=== PATIENT | male | born 1945 | race Caucasian/White ===

== ENCOUNTER 2017-08-14 19:17 | Inpatient (IN) | payer OTHER ==
[~2017-08-14] VITALS: Ht 177.8 cm; Wt 67.6 kg
[~2017-08-14 19:17] MED LIST: IRON PO; METOPROLOL PO; TAMS0.4C59 PO; VITAMIN C PO; WARFARIN PO
[2017-08-14] MEDS ORDERED: CMD/25 PO (19:59)
[2017-08-14] MEDS ORDERED: PANT40TA PO (19:59)
[2017-08-14] MEDS ORDERED: SODI650T8 PO (19:59)
[2017-08-14] MEDS ORDERED: WARF-246 PO (19:59)
[2017-08-14 20:00] VITALS: BP 110/63; PULSE 101; TEMP 36.9; O2SAT 95; Ht 177.8 cm; Wt 67.6 kg
[2017-08-14] MEDS ORDERED: VANCOMYCIN INJ 1,000 MG in SODIUM CHLORIDE 0.9% 250ML 250 ML IV STA (21:36)
[2017-08-14] MEDS ORDERED: VANCOMYCIN CONSULT ACTIVE PRN (21:45)
[2017-08-14] MEDS ORDERED: PIPERACILL/TAZOBAC CONSULT ACTIVE PRN (21:45)
[2017-08-14] MEDS ORDERED: LEVOFLOXACIN / D5W 750 MG in PREMIXED IN D5W 150 ML IV SCH (22:00)
--- NOTE | 2017-08-14 22:05 | DIAGNOSTIC IMAGING REPORT ---
CHEST ONE VIEW PORTABLE CLINICAL HISTORY: For Line Placement/Intubation tube position COMPARISON STUDY: No previous studies for comparison. FINDINGS: No tubes are identified. Infiltrate right base. Trace amount pleural fluid both lung bases. Upper lungs are clear. IMPRESSION: No tubes are identified. 2. Infiltrate right base.. 3. Small bilateral pleural effusions. The above report was generated using voice recognition software. It may contain grammatical, syntax or spelling errors. Electronically signed by: José Luis Chacon M.D. 08/14/2017 10:03 PM Dictated Date/Time: 08/14/2017 10:01 PM
[2017-08-14 22:30] LABS: HEMATOCRIT 30.8 % (42-52); HEMOGLOBIN 10.5 g/dL (14.0-18.0); MEAN CELL VOLUME 85.3 fL (80-100); MEAN CORPUSCULAR HEMOGLOBIN 29.1 pg (25-34); MEAN CORPUSCULAR HGB CONC 34.1 g/dl (32-36); MEAN PLATELET VOLUME 9.3 fL (7.4-10.4); PLATELET COUNT 200 K/uL (130-400); RED CELL DISTRIBUTION WIDTH CV 14.4 % (11.5-14.5); RED CELL DISTRIBUTION WIDTH SD 45.1 fL (36.4-46.3); WHITE BLOOD COUNT 12.26 K/uL (4.8-10.8)
--- NOTE | 2017-08-14 22:41 | DIAGNOSTIC IMAGING REPORT ---
(CHEST) THORAX WITHOUT CT DOSE: HISTORY: Pneumonia RLL pna eval TECHNIQUE: Multiaxial CT images of the chest were performed without contrast. A dose lowering technique was utilized adhering to the principles of ALARA. COMPARISON: None. FINDINGS: Consolidative right lower lobe infiltrate. Bilateral pleural effusions. Minimal fibrotic change pulmonary apices. No significant parenchymal nodularity. IMPRESSION: 1. Consolidated right lower lobe infiltrate. 2. Bilateral pleural effusions. The above report was generated using voice recognition software. It may contain grammatical, syntax or spelling errors. Electronically signed by: José Luis Chacon M.D. 08/14/2017 10:39 PM Dictated Date/Time: 08/14/2017 10:38 PM
[2017-08-14 22:46] LABS: ALBUMIN 2.2 gm/dl (3.4-5.0); CALCIUM 8.1 mg/dl (8.5-10.1); CREATININE 3.27 mg/dl (0.60-1.40); POTASSIUM 4.3 mmol/L (3.5-5.1)
[2017-08-14 22:48] LABS: INR 2.5 (0.9-1.1)
--- NOTE | 2017-08-14 22:48 | DIAGNOSTIC IMAGING REPORT ---
ABD/PELVIS WITHOUT FOR STONE CT DOSE: 1194.84 mGy.cm HISTORY: Flank pain. Sepsis. RIGHT flank/low back pain w/ h/o stones. current sepsis TECHNIQUE: Multiaxial CT images of the abdomen and pelvis were performed without the use of intravenous and oral contrast according to the standard department stone protocol. A dose lowering technique was utilized adhering to the principles of ALARA. COMPARISON STUDY: None. FINDINGS: Bibasilar pleural effusions. Consolidative infiltrate right base. Study is limited due to the absence of contrast enhancement. Configuration of the liver is unremarkable. Spleen is unremarkable. Moderate pancreatic atrophy. Right kidney is negative for hydronephrosis. There is a 5 mm calcification within the central left renal collecting system. This appears to be nonobstructing but is within the lateral aspects of the renal pelvis. Mild periureteral fat stranding considered nonspecific. 4 mm calcification distal left ureter 2 cm proximal to the left ureteral vesicle junction. Mild fullness left ureter as compared to the right. Several left surgical clips anterior to the left iliopsoas transaxial image 89 within the soft tissue pelvis. Bladder is distended. No free fluid within the pelvic cul-de-sac. Prior TUR defect of the prostate. The bowel pattern overall is nonobstructive. There is a right-sided ostomy. There is a trace amount of infiltrative change of the mesentery which is nonspecific. IMPRESSION: 1. Difficult scan to interpret due to the complete absence of contrast. 2. Infiltrate right lung base. 3. Bilateral pleural effusions. 4. Mild fullness left ureter and left renal pelvis apparently secondary to a partially obstructing calculus distal left ureter measuring 4 mm. 5. Additional nonobstructing 5 mm calcification within the peripheral left renal pelvis. 6. Distention of the bladder. 7. Right-sided ostomy. 8. To the absence of contrast enhancement, potential adenopathy within the retroperitoneal/mesenteric Region is difficult to define, if present. The above report was generated using voice recognition software. It may contain grammatical, syntax or spelling errors. Electronically signed by: José Luis Chacon M.D. 08/14/2017 10:46 PM Dictated Date/Time: 08/14/2017 10:41 PM
[2017-08-14 22:50] LABS: PHOSPHORUS 3.2 mg/dl (2.5-4.9); TOTAL PROTEIN 5.7 gm/dl (6.4-8.2)
[2017-08-14 22:53] LABS: CKMB 5.7 ng/ml (0.5-3.6)
[2017-08-14 22:56] LABS: BASO % 0.2 %; BASO ABS # 0.02 K/uL (0-0.2); IG# 0.28 K/uL (0.00-0.02); LYMPH % 3.5 %; LYMPH ABS # 0.43 K/uL (1.2-3.4); MONO % 3.2 %; MONO ABS # 0.39 K/uL (0.11-0.59); NEUT % 90.8 %; NEUT ABS # 11.14 K/uL (1.4-6.5)
[2017-08-14] MEDS ORDERED: PIPERACILL/TAZOBAC IV 3.375 GM in DEXTROSE 5% 100ML 100 ML IV SCH (23:00)
[2017-08-14] MEDS ORDERED: VANCOMYCIN INJ 1,500 MG in SODIUM CHLORIDE 0.9% 500ML 500 ML IV SCH (23:00)
[2017-08-14 23:13] VITALS: BP 97/59; PULSE 98; TEMP 36.7; O2SAT 94
[2017-08-14] MEDS ORDERED: NURSING VERBAL MED ORDER ONE ×2 (23:15→23:30)
[2017-08-14] MEDS ORDERED: LEVOFLOXACIN CONSULT ACTIVE PRN (23:15)
[2017-08-14 23:18] LABS: PTT PATIENT 54.6 SECONDS (21.0-31.0)
--- NOTE | 2017-08-14 23:26 | History and Physical ---
History & Physical Date & Time of Service: Aug 14, 2017 at 23:26 Chief Complaint: Sepsis, Right Lower Lobe Pheumonia, Kidney Stone Primary Care Physician: No Doctor, Assigned History of Present Illness Source: patient, hospital records Patient is a pleasant 72-year-old male with significant past medical history of hypertension, factor V Leiden, LEFT lower 70 DVT anticoagulated on Coumadin, gout, urinary retention, kidney stones, urinary tract infections, pneumonia, C. difficile with complication requiring partial colectomy, and remote history of lymphoma who presents to our facility in transfer from [facility] for concerns for pneumonia and sepsis. Patient reports that he had been feeling well this week, but reports that he developed "flulike symptoms" over the last 3-4 days. He describes symptoms as weakness and generalized malaise. He denies any upper respiration symptoms. He reports feeling feverish , but has no recorded fevers. He reports that he has also had low back pain for the past 48 hours which was concerning to him as well. He was initially admitted to [facility] where he was found to have a RIGHT lower lobe pneumonia as well as concerns for UTI. The patient does have significant past medical history for urinary calculi recently. He had a stent removed a few weeks ago. In addition, he has been treated for UTI over the past 3-4 months. While at [facility], the patient did have a decline in his blood pressure requiring vasopressors, specifically Levophed. Initially, the patient was accepted in transfer to [facility]'s ICU, however they did not have a bed. It was suggested that if the patient was off of vasopressors for 6 hours, he could be transferred to their facility. At that point, the provider was not comfortable managing the patient with his multitude of symptoms and complexity of care. He did, however, come off of Levophed prior to transfer. Upon arrival at our facility, the patient reports that he has felt generally weak. In addition, he is complaining of pain to the RIGHT-sided lower ribs which is worse with deep inspiration. He reports a cough without sputum production. In addition, he complains of some low back discomfort and decreased urinary output. He denies any chest pain, palpitations, veronica hemoptysis, nausea, vomiting, hematochezia, melena, hematuria, or dysuria. Patient had rare tobacco use in the form of cigarettes as a child. He does not drink. 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 Past Medical/Surgical History Past Medical History: Lymphoma Hypertension Left lower extremity DVT Factor V Leiden Urinary retention Gout Prostate enlargement Kidney stones Urinary tract infection Pneumonia C. difficile Surgeries: Partial colectomy with appendectomy TURP Ureteral stenting Family History Mother: Diabetes. Father: CAD Social History Smoking Status: Never Smoker Smokeless Tobacco Use: No Alcohol Use: none Drug Use: none Marital Status: Housing status: lives with family Occupational Status: employed, retired Immunizations History of Influenza Vaccine: Unknown History of Tetanus Vaccine?: Unknown History of Pneumococcal: Unknown History of Hepatitis B Vaccine: Unknown Multi-Drug Resistant Organisms History of MDRO: No Allergies Coded Allergies: No Known Allergies (Verified , 08/18/02) Uncoded Allergies: N (Allergy, Unknown, 08/18/02) POLLEN (Allergy, Unknown, 08/18/02) Home Medications Scheduled Pantoprazole (Protonix), 40 MG PO DAILY Sodium Bicarbonate (Sodium Bicarbonate), 1 TAB PO DAILY Tamsulosin Hcl (Flomax), 0.4 MG PO DAILY Warfarin Sod (Coumadin), 2.5 MG PO THURSDAY Warfarin Sodium (Warfarin Sodium), 1 TAB PO daily except thursday Review of Systems A complete 10-point Review of Systems was discussed with the patient, with pertinent positives and negatives listed in the History of Present Illness. All remaining Review of Systems questions can be considered negative unless otherwise specified. Physical Exam Vital Signs Date Time Temp Pulse Resp B/P (MAP) Pulse Ox O2 Delivery O2 Flow Rate FiO2 08/14/17 23:13 36.7 98 23 97/59 (72) 94 Room Air 08/14/17 20:00 36.9 101 20 110/63 95 Room Air VITAL SIGNS - Vital signs and nursing notes were reviewed. GENERAL - 72-year-old male appearing his stated age who is in no acute distress. Communicates well with provider and answers questions appropriately. HEAD - NC/AT. EYES - PERRL with EOMI bilaterally. Sclera anicteric. Palpebral conjunctiva pink and moist with no injection noted. EARS - No deformities of external structures noted on gross examination bilaterally. NOSE - Midline and without cyanosis. MOUTH/OROPHARYNX - Without perioral cyanosis. Buccal mucosa pink and dry. NECK - Neck with FROM. Supple to palpation. No nuchal rigidity. LUNGS - Chest wall symmetric without accessory muscle use, intercostals retractions, or central cyanosis. Normal vesicular breath sounds CTA B/L. No wheezes, rales, or rhonchi appreciated. CARDIAC - RRR with S1/S2. No murmur, rubs, or gallops appreciated. ABDOMEN - Abdominal contour flat and without pulsations or visible masses. Ostomy in place to the RLQ. Negative Montgomery's or Rodriges Aiken's Signs. BS distant normoactive all four quadrants. No tenderness to palpation appreciated throughout. No guarding. No Rebound Tenderness. EXTREMITIES - No clubbing or peripheral cyanosis. No pretibial edema present. +2 /5 radial and dorsalis pedis pulses palpated throughout. PSYCH - A&Ox3 and cooperates fully with examiner. Pt is very pleasant and interacts well with examiner. Diagnostics Laboratory Results Results Past 24 Hours Test 08/14/17 21:20 08/14/17 21:57 08/14/17 22:12 Range/Units White Blood Count 12.26 4.8-10.8 K/uL Red Blood Count 3.61 4.7-6.1 M/uL Hemoglobin 10.5 14.0-18.0 g/dL Hematocrit 30.8 42-52 % Mean Corpuscular Volume 85.3 80-100 fL Mean Corpuscular Hemoglobin 29.1 25-34 pg Mean Corpuscular Hemoglobin Concent 34.1 32-36 g/dl Platelet Count 200 130-400 K/uL Mean Platelet Volume 9.3 7.4-10.4 fL Neutrophils (%) (Auto) 90.8 % Lymphocytes (%) (Auto) 3.5 % Monocytes (%) (Auto) 3.2 % Eosinophils (%) (Auto) 0.0 % Basophils (%) (Auto) 0.2 % Neutrophils # (Auto) 11.14 1.4-6.5 K/uL Lymphocytes # (Auto) 0.43 1.2-3.4 K/uL Monocytes # (Auto) 0.39 0.11-0.59 K/uL Eosinophils # (Auto) 0.00 0-0.5 K/uL Basophils # (Auto) 0.02 0-0.2 K/uL RDW Standard Deviation 45.1 36.4-46.3 fL RDW Coefficient of Variation 14.4 11.5-14.5 % Immature Granulocyte % (Auto) 2.3 % Immature Granulocyte # (Auto) 0.28 0.00-0.02 K/uL Toxic Vacuolation 1+ Ovalocytes 1+ Echinocytes 3+ Prothrombin Time 26.0 9.0-12.0 SECONDS Prothromb Time International Ratio 2.5 0.9-1.1 Activated Partial Thromboplast Time 54.6 21.0-31.0 SECONDS Partial Thromboplastin Ratio 2.1 Sodium Level 141 136-145 mmol/L Potassium Level 4.3 3.5-5.1 mmol/L Chloride Level 116 98-107 mmol/L Carbon Dioxide Level 16 21-32 mmol/L Anion Gap 9.0 3-11 mmol/L Blood Urea Nitrogen 55 7-18 mg/dl Creatinine 3.27 0.60-1.40 mg/dl Est Creatinine Clear Calc Drug Dose 18.6 ml/min Estimated GFR () 20.6 Estimated GFR (Non- 17.7 BUN/Creatinine Ratio 16.9 10-20 Random Glucose 91 70-99 mg/dl Calcium Level 8.1 8.5-10.1 mg/dl Phosphorus Level 3.2 2.5-4.9 mg/dl Magnesium Level 1.4 1.8-2.4 mg/dl Total Bilirubin 0.3 0.2-1 mg/dl Direct Bilirubin 0.1 0-0.2 mg/dl Aspartate Amino Transf (AST/SGOT) 22 15-37 U/L Alanine Aminotransferase (ALT/SGPT) 17 12-78 U/L Alkaline Phosphatase 38 45-117 U/L Total Creatine Kinase 183 39-308 U/L Creatine Kinase MB 5.7 0.5-3.6 ng/ml Creatine Kinase MB Ratio 3.1 0-3.0 Troponin I < 0.015 0-0.045 ng/ml Total Protein 5.7 6.4-8.2 gm/dl Albumin 2.2 3.4-5.0 gm/dl Lipase 52 73-393 U/L Prostate Specific Antigen 6.760 0.000-4.000 ng/ml Procalcitonin 100.76 0-0.5 ng/ml Lactic Acid Level 1.8 0.4-2.0 mmol/L Microbiology Results 08/14/17 Blood Culture, Received Pending 08/14/17 Blood Culture, Received Pending 08/14/17 MRSA DNA Surveillance Screen, Ordered Pending Diagnostic Radiology Radiological imaging and reports were reviewed by myself. Radiologist's Interpretation as follows: CHEST ONE VIEW PORTABLE CLINICAL HISTORY: For Line Placement/Intubation tube position COMPARISON STUDY: No previous studies for comparison. FINDINGS: No tubes are identified. Infiltrate right base. Trace amount pleural fluid both lung bases. Upper lungs are clear. IMPRESSION: No tubes are identified. 2. Infiltrate right base.. 3. Small bilateral pleural effusions. (CHEST) THORAX WITHOUT CT DOSE: HISTORY: Pneumonia RLL pna eval TECHNIQUE: Multiaxial CT images of the chest were performed without contrast. A dose lowering technique was utilized adhering to the principles of ALARA. COMPARISON: None. FINDINGS: Consolidative right lower lobe infiltrate. Bilateral pleural effusions. Minimal fibrotic change pulmonary apices. No significant parenchymal nodularity. IMPRESSION: 1. Consolidated right lower lobe infiltrate. 2. Bilateral pleural effusions. ABD/PELVIS WITHOUT FOR STONE CT DOSE: 1194.84 mGy.cm HISTORY: Flank pain. Sepsis. RIGHT flank/low back pain w/ h/o stones. current sepsis TECHNIQUE: Multiaxial CT images of the abdomen and pelvis were performed without the use of intravenous and oral contrast according to the standard department stone protocol. A dose lowering technique was utilized adhering to the principles of ALARA. COMPARISON STUDY: None. FINDINGS: Bibasilar pleural effusions. Consolidative infiltrate right base. Study is limited due to the absence of contrast enhancement. Configuration of the liver is unremarkable. Spleen is unremarkable. Moderate pancreatic atrophy. Right kidney is negative for hydronephrosis. There is a 5 mm calcification within the central left renal collecting system. This appears to be nonobstructing but is within the lateral aspects of the renal pelvis. Mild periureteral fat stranding considered nonspecific. 4 mm calcification distal left ureter 2 cm proximal to the left ureteral vesicle junction. Mild fullness left ureter as compared to the right. Several left surgical clips anterior to the left iliopsoas transaxial image 89 within the soft tissue pelvis. Bladder is distended. No free fluid within the pelvic cul-de-sac. Prior TUR defect of the prostate. The bowel pattern overall is nonobstructive. There is a right-sided ostomy. There is a trace amount of infiltrative change of the mesentery which is nonspecific. IMPRESSION: 1. Difficult scan to interpret due to the complete absence of contrast. 2. Infiltrate right lung base. 3. Bilateral pleural effusions. 4. Mild fullness left ureter and left renal pelvis apparently secondary to a partially obstructing calculus distal left ureter measuring 4 mm. 5. Additional nonobstructing 5 mm calcification within the peripheral left renal pelvis. 6. Distention of the bladder. 7. Right-sided ostomy. 8. To the absence of contrast enhancement, potential adenopathy within the retroperitoneal/mesenteric Normal EKG Impression Assessment and Plan (1) UTI (urinary tract infection) (2) Right lower lobe pneumonia (3) Acute kidney injury superimposed on chronic kidney disease (4) Sepsis 72-year-old male with sepsis secondary to possible multiple sources including RIGHT lower lobe pneumonia as well as UTI. Initially hypotensive requiring vasoactive medications at [facility]. SEPSIS: * Initial labs from [facility] demonstrated a leukocytosis no reported lactic acidosis. * Will recheck baseline labs including CBC, lactic acid, pro-calcitonin, blood cultures, urine culture. * Not requiring vasoactive medications this point, but would have low threshold given the patient's complicated presentation. * Continue with IV fluid. Monitor for volume overload as pleural effusions noted.. * Aggressive antibiotic coverage including vancomycin, Zosyn, and Levaquin. * Continue until able to narrow down based on cultures. UTI: * History of UTIs as well as kidney stones and recent ureteral stenting. * Will add Marinelli catheter for urinary retention. * Will check CT of the abdomen and pelvis without contrast for possible retained stone. This certainly has potential for complicating the patient's current course. * Appreciate Urology Consultation and guidance. * Will also add PSA as significant h/o retention and TURP in the setting of new UTI. Does not present like Prostatitis clinically, however. PNEUMONIA: * No h/o pulmonary disease otherwise. * Will cover pulmonary sources and urinary sources with abx. * Pulmonary toilet. * Incentive spirometry. * CT Chest for further evaluation. * In the setting of DVT Hx, may help delineate pulmonary infarct, however, as the patient is anticoagulated, I feel this is much less likely. * O2 PRN * Would have low threshold for BiPAP in this patient. Caution with positive pressure ventilation with the patient's soft blood pressures. 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 * Will evaluation with US. * CT Chest for reasons described above. DVT PROPHYLAXIS: * Continue Coumadin. * Hold SCDs 2/2 h/o DVT. CODE STATUS: * After extensive conversation with the patient, he reports that he does have a living will which is on file at our facility. He reports that he would not wish to undergo CPR or cardioversion. He would, however, be fine with every trial of intubation in the setting of his pneumonia. Otherwise, the patient will be made a DO NOT RESUSCITATE with the caveat of intubation for airway management only. Attending addendum: I have physically seen this patient, have supervised the medical residents activities, and agree with the H&P unless as otherwise noted. Assessment and Plan: Sepsis/kidney stones/UTI/pneumonia-- Admit to telemetry unit for close observation. Kidney stone/ureteral stents/UTI-- Order CT of abdomen pelvis without contrast to assess for kidney stone. IV fluids Follow urine culture and sensitivity Labs as above Antibiotics to cover pneumonia and UTI. Consult urology. Pneumonia-- Vancomycin IV per pharmacokinetic monitoring Zosyn 3.375 mg IV every 8 hours Levofloxacin 500 mg IV every 24 hours Duonebs every 4 hours while awake and every 2 hours when necessary. Guaifenesin extended release 600 mg by mouth twice a day Nasal cannula oxygen titrate to keep pulse ox greater than or equal to 92% Sputum Gram stain and culture Level of Care Telemetry Advanced Directives Existing Living Will: Yes Existing Power of Solutions Consultant: Yes Resuscitation Status DO NOT RESUSCITATE VTE Prophylaxis VTE Risk Assessment Done? Y/N: Yes Risk Level: High Given or contraindicated: Warfarin (Coumadin) Problem Qualifiers (1) UTI (urinary tract infection): Urinary tract infection type: acute cystitis (2) Right lower lobe pneumonia: Aspiration pneumonia type: unspecified
[2017-08-14] MEDS ORDERED: TAMSULOSIN HCL 0.4 MG CAP PO STA (23:47)
[2017-08-14] MEDS: NSS + 20MEQ KCL 1000ML 1,000 ML IV SCH (23:57)
[2017-08-14] MEDS: MAGNESIUM SULFATE 1GM / D5W 1 GM in PREMIXED IN D5W 100 ML IV SCH (23:58)
[2017-08-14 23:59] VITALS: O2SAT 94
[2017-08-15] VITALS (9 sets, daily range): BP systolic 94–105; BP diastolic 48–63; PULSE 90–101; TEMP 36.5–37.4; O2SAT 93–97
[2017-08-15] MEDS: ACETAMINOPHEN 325 MG TAB PO PRN ×2 (00:18→20:39)
[2017-08-15] MEDS: MAGNESIUM SULFATE 1GM / D5W 1 GM in PREMIXED IN D5W 100 ML IV SCH (01:18)
[2017-08-15] MEDS ORDERED: MoRPHine SULFATE 2 MG/ML CARP IV STA (02:51)
--- NOTE | 2017-08-15 05:19 | DIAGNOSTIC IMAGING REPORT ---
VENOUS DOPPLER LWR EXT BILA CLINICAL HISTORY: 72 years-old Male presenting with eval for extent of DVT, hip pain. TECHNIQUE: Real-time grayscale and color and spectral Doppler ultrasound imaging of the veins of the bilateral lower extremities was performed. Compression and augmentation were also utilized. COMPARISON: None. FINDINGS: Right: Common femoral vein: Patent. Greater saphenous vein: Patent. Deep femoral vein: Patent. Femoral vein: Patent. Popliteal vein: Patent. Calf veins: Patent. Left: Common femoral vein: Patent. Greater saphenous vein: Patent. Deep femoral vein: Patent. Femoral vein: Patent. Popliteal vein: Patent. Calf veins: Patent. Other: In the region of the right groin anterior to the right common femoral vein an ellipsoid hypoechoic vascular mass may represent an enlarged reactive lymph node. This measures 3.2 x 0.6 x 3.3 cm. This appears centered in the subcutaneous fat. IMPRESSION: 1. No evidence of deep venous thrombosis. 2. Possible reactive lymph node in the right inguinal region. Given the size of the presumed node, follow-up to resolution could be considered. Vascularity of this mass is not consistent with a hematoma or other avascular collection. Electronically signed by: Frederic Gil M.D. 08/15/2017 5:17 AM Dictated Date/Time: 08/15/2017 5:14 AM
[2017-08-15 06:18] LABS: HEMATOCRIT 26.1 % (42-52); HEMOGLOBIN 8.9 g/dL (14.0-18.0); MEAN CORPUSCULAR HGB CONC 34.1 g/dl (32-36); MEAN PLATELET VOLUME 9.5 fL (7.4-10.4); PLATELET COUNT 171 K/uL (130-400); RED CELL DISTRIBUTION WIDTH CV 14.5 % (11.5-14.5); RED CELL DISTRIBUTION WIDTH SD 45.7 fL (36.4-46.3); WHITE BLOOD COUNT 9.57 K/uL (4.8-10.8)
[2017-08-15 06:49] LABS: BASO % 0.1 %; BASO ABS # 0.01 K/uL (0-0.2); EOS % 0.1 %; EOS ABS # 0.01 K/uL (0-0.5); IG# 0.05 K/uL (0.00-0.02); LYMPH % 4.5 %; LYMPH ABS # 0.43 K/uL (1.2-3.4); MONO ABS # 0.38 K/uL (0.11-0.59); NEUT % 90.8 %; NEUT ABS # 8.69 K/uL (1.4-6.5)
[2017-08-15 06:57] LABS: ALBUMIN 1.8 gm/dl (3.4-5.0); ALT/SGPT 14 U/L (12-78); AST/SGOT 20 U/L (15-37); BLOOD UREA NITROGEN 55 mg/dl (7-18); CALCIUM 7.6 mg/dl (8.5-10.1); CARBON DIOXIDE 15 mmol/L (21-32); CREATININE 2.89 mg/dl (0.60-1.40); GLUCOSE 78 mg/dl (70-99); INR 2.5 (0.9-1.1); POTASSIUM 4.2 mmol/L (3.5-5.1); SODIUM 141 mmol/L (136-145)
[2017-08-15 07:02] LABS: ALKALINE PHOSPHATASE 34 U/L (45-117); CKMB 4.2 ng/ml (0.5-3.6); TOTAL PROTEIN 4.9 gm/dl (6.4-8.2)
[2017-08-15 07:11] LABS: PTT PATIENT 68.6 SECONDS (21.0-31.0)
--- NOTE | 2017-08-15 07:14 | DIAGNOSTIC IMAGING REPORT ---
CHEST ONE VIEW PORTABLE CLINICAL HISTORY: 72 years-old Male presenting with pna. TECHNIQUE: Portable upright AP view of the chest was obtained. COMPARISON: CT chest from 08/14/2017 and chest x-ray from 08/14/2017. FINDINGS: Cardiomediastinal silhouette normal. Persistent hazy right basilar opacity. Less extensive left basilar opacity. Moderate right and small left pleural effusions. No pneumothorax. Degenerative changes of the thoracic spine. Upper abdomen normal. IMPRESSION: 1. Persistent right lower lobe pneumonia. 2. Moderate right parapneumonic effusion. 3. Small left pleural effusion. 4. Developing left basilar consolidation is difficult to exclude though this most likely represents atelectasis. Electronically signed by: Frederic Gil M.D. 08/15/2017 7:12 AM Dictated Date/Time: 08/15/2017 7:11 AM
[2017-08-15] MEDS ORDERED: ALBUT/IPRATROP 3MG/0.5MG NEB 3 ML VIAL INH SCH (08:00)
[2017-08-15] MEDS ORDERED: ALBUT/IPRATROP 3MG/0.5MG NEB 3 ML VIAL INH PRN (08:00)
[2017-08-15] MEDS ORDERED: SODIUM BICARBONATE 650 MG TAB PO SCH (09:00)
[2017-08-15] MEDS ORDERED: TAMSULOSIN HCL 0.4 MG CAP PO SCH (09:00)
[2017-08-15] MEDS ORDERED: PANTOprazole SOD 40 MG TAB PO SCH (09:00)
[2017-08-15] MEDS: PIPERACILL/TAZOBAC IV 3.375 GM in DEXTROSE 5% 100ML IV SCH ×2 (09:29→20:38)
--- NOTE | 2017-08-15 09:46 | Progress Note ---
Subjective Date of Service: Aug 15, 2017. Subjective Pt evaluation today including: conversation w/ patient, physical exam, lab review, review of studies, conversation w/ [facility] consultant, review of inpatient medication list Pain: left flank pain PO Intake: NPO for procedure Voiding: bartlett catheter in place patient is breathing comfortably, says his breathing has improved dramatically since he has been treated for pneumonia starting at [facility] experiencing some left flank pain and left groin pain associated with the ureteral stone reviewed imaging, CT shows left sided 4mm stone with obstruction, hydronephrosis shows right lower lobe infiltrate suggesting pneumonia dopplers bilaterally negative for DVT INR is 2.5, Cr drifting down slightly at 2.89, excellent urine output with bartlett WBC normal at 9k but with left shift, 90% neutrophils procalcitonin high at 100 discussed the case with Dr. Scott, he will take for cystoscopy and attempt to place left ureteral stent if he cannot place stent then patient will need transferred to tertiary care for nephrostomy tube patient has no history of CAD/PR, no arrhythmias, no valve disease, no stroke, no CKD, no DM he has history of colectomy in 2011 for C diff colitis, has experienced high output and weight loss since that time Problem List Medical Problems: (1) Acute kidney injury superimposed on chronic kidney disease Status: Acute (2) Right lower lobe pneumonia Status: Acute (3) Sepsis Status: Acute (4) UTI (urinary tract infection) Status: Acute Review of Systems Constitutional: + weakness, + fatigue Respiratory: + cough (no sputum), + shortness of breath, + dyspnea on exertion Abdomen: + pain (left flank and left lower quadrant/groin), + problem reported (ostomy with high output) All Other Systems: Reviewed and Negative Medications Current Inpatient Medications Medications (Trade) Dose Ordered Sig/Dominik Route Start Time Stop Time Status Last Admin Dose Admin Potassium Chloride/Sodium Chloride 1,000 ml @ 80 mls/hr [id number] IV 08/14/17 22:00 09/13/17 21:59 08/14/17 23:57 80 MLS/HR Acetaminophen (Tylenol Tab) 650 mg Q4H PRN PO 08/14/17 21:30 09/13/17 21:29 08/15/17 00:18 650 MG Ondansetron HCl (Zofran Inj) 4 mg Q6H PRN IV 08/14/17 21:30 09/13/17 21:29 Pantoprazole Sodium (Protonix Tab) 40 mg DAILY PO 08/15/17 09:00 09/14/17 08:59 Future Hold Sodium Bicarbonate (Sodium Bicarbonate Tab) 650 mg DAILY PO 08/15/17 09:00 09/14/17 08:59 Future Hold Warfarin Sodium (Coumadin Tab) 2.5 mg Mo@1600 PO 08/17/17 16:00 09/16/17 15:59 Future Hold Warfarin Sodium (Coumadin Tab) 5 mg SuTuWeThFrSa@1600 PO 08/15/17 16:00 09/14/17 15:59 Future Hold Miscellaneous Information (Consult) 1 ea UD PRN N/A 08/14/17 21:45 09/13/17 21:44 Miscellaneous Information (Consult) 1 ea UD PRN N/A 08/14/17 21:45 09/13/17 21:44 Levofloxacin (Consult) 1 ea UD PRN N/A 08/14/17 23:15 09/13/17 23:14 Tamsulosin HCl (Flomax Cap) 0.8 mg PM PO 08/15/17 21:00 09/14/17 20:59 Piperacillin Sod/ Tazobactam Sod 3.375 gm/Dextrose 115 ml @ 28.75 mls/ hr Q12H IV 08/15/17 10:00 08/22/17 09:59 08/15/17 09:29 28.75 MLS/HR Albuterol/ Ipratropium (Duoneb) 3 ml Q4 PRN INH 08/15/17 08:00 09/14/17 07:59 Levofloxacin 750 mg/Prmx 150 ml @ 100 mls/hr Q48H IV 08/16/17 23:00 08/23/17 22:59 Objective Vital Signs Date Time Temp Pulse Resp B/P (MAP) Pulse Ox O2 Delivery O2 Flow Rate FiO2 08/15/17 08:00 Room Air 08/15/17 07:50 36.5 91 18 105/62 (76) 93 Room Air 08/15/17 07:12 92 16 93 Room Air 08/15/17 04:23 94/48 (63) 08/15/17 04:00 94 Room Air 08/15/17 03:15 37.1 98 20 97/54 (68) 94 Room Air 08/14/17 23:59 94 Room Air 08/14/17 23:13 36.7 98 23 97/59 (72) 94 Room Air 08/14/17 20:00 36.9 101 20 110/63 95 Room Air Physical Exam General Appearance: no apparent distress, + thin Eyes: normal inspection, EOMI, sclerae normal ENT: normal ENT inspection, hearing grossly normal, pharynx normal Neck: supple, no adenopathy, no JVD, trachea midline Respiratory/Chest: chest non-tender, normal breath sounds, no respiratory distress, no accessory muscle use, + crackles (right base) Cardiovascular: no edema, no gallop, no JVD, no murmur, + tachycardia (sinus) Abdomen: normal bowel sounds, non tender, soft, no organomegaly, + pertinent finding (right lower quadrant ostomy, good output) Extremities: normal range of motion, non-tender, normal inspection, no pedal edema, no calf tenderness, pelvis stable Neurologic/Psychiatric: management instructor II-XII nml as tested, no motor/sensory deficits, alert, normal mood/affect, oriented x 3 Skin: normal color, warm/dry, no rash Lymphatic: no adenopathy Laboratory Results Last 24 Hours Test 08/14/17 21:57 08/14/17 22:12 08/14/17 23:45 08/15/17 05:51 White Blood Count 12.26 K/uL 9.57 K/uL Red Blood Count 3.61 M/uL 3.07 M/uL Hemoglobin 10.5 g/dL 8.9 g/dL Hematocrit 30.8 % 26.1 % Mean Corpuscular Volume 85.3 fL 85.0 fL Mean Corpuscular Hemoglobin 29.1 pg 29.0 pg Mean Corpuscular Hemoglobin Concent 34.1 g/dl 34.1 g/dl Platelet Count 200 K/uL 171 K/uL Mean Platelet Volume 9.3 fL 9.5 fL Neutrophils (%) (Auto) 90.8 % 90.8 % Lymphocytes (%) (Auto) 3.5 % 4.5 % Monocytes (%) (Auto) 3.2 % 4.0 % Eosinophils (%) (Auto) 0.0 % 0.1 % Basophils (%) (Auto) 0.2 % 0.1 % Neutrophils # (Auto) 11.14 K/uL 8.69 K/uL Lymphocytes # (Auto) 0.43 K/uL 0.43 K/uL Monocytes # (Auto) 0.39 K/uL 0.38 K/uL Eosinophils # (Auto) 0.00 K/uL 0.01 K/uL Basophils # (Auto) 0.02 K/uL 0.01 K/uL RDW Standard Deviation 45.1 fL 45.7 fL RDW Coefficient of Variation 14.4 % 14.5 % Immature Granulocyte % (Auto) 2.3 % 0.5 % Immature Granulocyte # (Auto) 0.28 K/uL 0.05 K/uL Toxic Vacuolation 1+ Ovalocytes 1+ Echinocytes 3+ 2+ Prothrombin Time 26.0 SECONDS 26.1 SECONDS Prothromb Time International Ratio 2.5 2.5 Activated Partial Thromboplast Time 54.6 SECONDS 68.6 SECONDS Partial Thromboplastin Ratio 2.1 2.6 Sodium Level 141 mmol/L 141 mmol/L Potassium Level 4.3 mmol/L 4.2 mmol/L Chloride Level 116 mmol/L 116 mmol/L Carbon Dioxide Level 16 mmol/L 15 mmol/L Anion Gap 9.0 mmol/L 10.0 mmol/L Blood Urea Nitrogen 55 mg/dl 55 mg/dl Creatinine 3.27 mg/dl 2.89 mg/dl Est Creatinine Clear Calc Drug Dose 18.6 ml/min 21.5 ml/min Estimated GFR () 20.6 23.9 Estimated GFR (Non- 17.7 20.6 BUN/Creatinine Ratio 16.9 19.0 Random Glucose 91 mg/dl 78 mg/dl Calcium Level 8.1 mg/dl 7.6 mg/dl Phosphorus Level 3.2 mg/dl Magnesium Level 1.4 mg/dl Total Bilirubin 0.3 mg/dl 0.3 mg/dl Direct Bilirubin 0.1 mg/dl < 0.1 mg/dl Aspartate Amino Transf (AST/SGOT) 22 U/L 20 U/L Alanine Aminotransferase (ALT/SGPT) 17 U/L 14 U/L Alkaline Phosphatase 38 U/L 34 U/L Total Creatine Kinase 183 U/L 127 U/L Creatine Kinase MB 5.7 ng/ml 4.2 ng/ml Creatine Kinase MB Ratio 3.1 3.3 Troponin I < 0.015 ng/ml < 0.015 ng/ml Total Protein 5.7 gm/dl 4.9 gm/dl Albumin 2.2 gm/dl 1.8 gm/dl Lipase 52 U/L Prostate Specific Antigen 6.760 ng/ml Procalcitonin 100.76 ng/ml Lactic Acid Level 1.8 mmol/L Urine Color YELLOW Urine Appearance CLEAR Urine pH 5.0 Urine Specific [place] 1.015 Urine Protein NEG Urine Glucose (UA) NEG Urine Ketones NEG Urine Occult Blood 2+ Urine Nitrite NEG Urine Bilirubin NEG Urine Urobilinogen NEG Urine Leukocyte Esterase TRACE Urine WBC (Auto) 0 /hpf Urine RBC (Auto) 0-4 /hpf Urine Hyaline Casts (Auto) 0 /lpf Urine Epithelial Cells (Auto) 0-5 /lpf Urine Bacteria (Auto) NEG Assessment and Plan 72-year-old male with sepsis secondary to possible multiple sources including RIGHT lower lobe pneumonia as well as UTI. Initially hypotensive requiring vasoactive medications at [facility]. - Septic shock prior to arrival secondary to right lower lobe pneumonia and UTI associated with ureteral stone no further shock, BP stable off of vasopressors, was only on Levophed briefly at [facility] continue IV fluids continue broad spectrum antibiotics with Zosyn, Levaquin, Vancomycin blood cultures pending would try to follow up on cultures from [facility] if available procalcitonin quite high at 100, would follow pneumonia, breathing well on room air, mild cough but no sputum production - Left ureteral stone, 4mm, with hydronephrosis making adequate urine in bartlett, for cystoscopy and possible stent today with Dr. Scott patient would be intermediate risk for cardiac complications, but he has no history of PR, arrhythmia, valve disease, stroke or DM as far as pneumonia, he is breathing comfortably on room air, no distress, would be acceptable for sedation if stent not possible then consider transfer to tertiary care for nephrostomy tube - DEBBIE: likely combination of obstruction with stone and prerenal with sepsis/ dehydration responding well to IV fluids, will continue and follow Cr certainly expect further improvement - H/o DVT and Factor V leiden dopplers negative for clot currently INR is 2.5 on Coumadin high risk for bleeding with cystoscopy, hold further Coumadin would be safe to reverse if necessary since there is no active clot no anticoagulation for now until further discussion with urology after procedure Code status: full code for the OR 24 hours afterwards would make DNR except okay with intubation for respiratory failure
[2017-08-15] MEDS: NSS + 20MEQ KCL 1000ML 1,000 ML IV SCH (10:12)
--- NOTE | 2017-08-15 10:14 | Urology Consultation ---
History General Date of Service: Aug 15, 2017. Primary Care Physician: No Doctor, Assigned History of Present Illness 72 y/o male with long hx of stones and urinary retention requiring CIC but complicated but chronic coumadin use and hematuria with cath and recurrent uti. Pt had a stent plced in the past 6 to 8 weeks for approximately 3 weeks for a left ureteral stone in [place] . He was told he had passed the stone and had his stent removed after approximately 3 weeks around 2 weeks ago .3 days ago he developed severe back pain similar to his previous pain w the left stain and had a low grade fever chills and ,malaise and body pain. He also appeared to have pneumonia ,He was admitted and became hypotensive and was to be transferred to [place] but they would not accept him due to complexity of his care. He was accepted here without my knowledge or input and I was consulted this AM . A ct scan showed a distal left ureteral ston w mild hydro, another 1 or 2 l lower pole stones and a severely distended bladder . Pt also has chronic end stage renal disease. He has history of TURP in past and c diff with complications from taking antibiotics for and elevated psa. This am pt has severe back pain like he did with stones before. A bartlett is in place draining clear urine . His pro time is elevated . Discussed with the hospitalist and anesthesia and will attempt to place a stent under sedation . No apparent clot in legs on sonogram per hospitalist. Pro time elevated . Pt on antibiotic requiring pain meds . Explained risk of being unable to plce stent if I cant see orifice or the stones impacted. Pt understands this and that stone will need to be removed later Laboratory Labs were reviewed and are within normal limits unless listed below. 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) Past Surgical History: other (turp , colon surgery) Social History Marital status: Housing status: lives with family Occupation status: employed, retired Immunizations History of Influenza Vaccine: Unknown History of Tetanus Vaccine?: Unknown History of Pneumococcal: Unknown History of Hepatitis B Vaccine: Unknown History of MDRO No Allergies Coded Allergies: No Known Allergies (Verified , 08/18/02) Uncoded Allergies: N (Allergy, Unknown, 08/18/02) POLLEN (Allergy, Unknown, 08/18/02) Medications Home Medications: Home Meds and Scripts Medications Dose Route/Sig Max Daily Dose Days Date Category Sodium Bicarbonate 650 Mg Tab 1 Tab PO DAILY 08/14/17 Reported Coumadin (Warfarin Sod) 2.5 Mg Tab 2.5 Mg PO Thursday08/14/17 Reported Warfarin Sodium 5 Mg Tab 1 Tab PO DAILY EXCEPT Thursday08/14/17 Reported Protonix (Pantoprazole Sodium) 40 Mg Tab 40 Mg PO DAILY 08/14/17 Reported Flomax (Tamsulosin Hcl) 0.4 Mg Cap 0.4 Mg PO DAILY 02/16/13 Reported Inpatient Medications: Current Inpatient Medications Medications (Trade) Dose Ordered Sig/Dominik Route Start Time Stop Time Status Last Admin Dose Admin Potassium Chloride/Sodium Chloride 1,000 ml @ 80 mls/hr [id number] IV 08/14/17 22:00 09/13/17 21:59 08/14/17 23:57 80 MLS/HR Acetaminophen (Tylenol Tab) 650 mg Q4H PRN PO 08/14/17 21:30 09/13/17 21:29 08/15/17 00:18 650 MG Ondansetron HCl (Zofran Inj) 4 mg Q6H PRN IV 08/14/17 21:30 09/13/17 21:29 Pantoprazole Sodium (Protonix Tab) 40 mg DAILY PO 08/15/17 09:00 09/14/17 08:59 Future Hold Sodium Bicarbonate (Sodium Bicarbonate Tab) 650 mg DAILY PO 08/15/17 09:00 09/14/17 08:59 Future Hold Warfarin Sodium (Coumadin Tab) 2.5 mg Mo@1600 PO 08/17/17 16:00 09/16/17 15:59 Future Hold Warfarin Sodium (Coumadin Tab) 5 mg SuTuWeThFrSa@1600 PO 08/15/17 16:00 09/14/17 15:59 Future Hold Miscellaneous Information (Consult) 1 ea UD PRN N/A 08/14/17 21:45 09/13/17 21:44 Miscellaneous Information (Consult) 1 ea UD PRN N/A 08/14/17 21:45 09/13/17 21:44 Levofloxacin (Consult) 1 ea UD PRN N/A 08/14/17 23:15 09/13/17 23:14 Tamsulosin HCl (Flomax Cap) 0.8 mg PM PO 08/15/17 21:00 09/14/17 20:59 Piperacillin Sod/ Tazobactam Sod 3.375 gm/Dextrose 115 ml @ 28.75 mls/ hr Q12H IV 08/15/17 10:00 08/22/17 09:59 08/15/17 09:29 28.75 MLS/HR Albuterol/ Ipratropium (Duoneb) 3 ml Q4 PRN INH 08/15/17 08:00 09/14/17 07:59 Levofloxacin 750 mg/Prmx 150 ml @ 100 mls/hr Q48H IV 08/16/17 23:00 08/23/17 22:59 Review of Systems Review of Systems Constitutional: + weight loss Eyes: + see HPI Endocrine: + tired/sluggish Gastrointestinal: + abdominal pain Cardiovascular: No see HPI, No heart murmur, No chest pain, No angina, No irregular heartbeat, No palpitations, No swelling ankles/feet, No problem reported Respiratory: No see HPI, No shortness of breath, No wheezing, No coughing up blood, No chronic cough, No problem reported Skin: No rash Musculoskeletal: + joint pain Blood / Lymphatic: + bleed easily Ears / Nose / Throat: + problem reported (dry mouth), No hearing loss Psychologic / Mental: No nervous Male : + urinary retention Physical Exam Vital Signs: Vital Signs Past 12 Hours Date Time Temp Pulse Resp B/P (MAP) Pulse Ox O2 Delivery O2 Flow Rate FiO2 08/15/17 08:00 Room Air 08/15/17 07:50 36.5 91 18 105/62 (76) 93 Room Air 08/15/17 07:12 92 16 93 Room Air 08/15/17 04:23 94/48 (63) 08/15/17 04:00 94 Room Air 08/15/17 03:15 37.1 98 20 97/54 (68) 94 Room Air 08/14/17 23:59 94 Room Air 08/14/17 23:13 36.7 98 23 97/59 (72) 94 Room Air Physical Exam: General Appearance: + mild distress Eyes: bilateral eyes vision changes ENT: normal ENT inspection Neck: no adenopathy Respiratory/Chest: no accessory muscle use Cardiovascular: no edema Extremities: no calf tenderness Neurologic/Psychiatric: alert Skin: warm/dry Lymphatic: no adenopathy Assessment & Plan Assessment & Plan Imaging: CT Treatment Planned: cystoscopy w/ stent typed and screened pt given low hct and high protime
[2017-08-15] MEDS ORDERED: EpHEDrine SULFATE INJ 50 MG/ML AMP IV PRN (10:15)
[2017-08-15] MEDS ORDERED: ATROPINE SULFATE 0.1 MG/ML 5ML SYR IV PRN (10:15)
[2017-08-15] MEDS ORDERED: ONDANSETRON INJ 2 MG/ML 2 ML VIAL IV PRN (10:15)
[2017-08-15] MEDS ORDERED: FENTANYL CITRATE INJ 50 MCG/1 ML 2 ML VIAL IV PRN (10:15)
[2017-08-15] MEDS ORDERED: ONDANSETRON INJ 2 MG/ML 2 ML VIAL ONE (10:25)
[2017-08-15] MEDS ORDERED: PROPOFOL IV EMULSION 10 MG/ML 20 ML VIAL IV ONE (10:25)
[2017-08-15] MEDS ORDERED: LIDOCAINE HCL 2% 2 ML VIAL (20MG/ML) ONE (10:25)
[2017-08-15] MEDS ORDERED: DEXAMETHASONE SOD INJ 4 MG/ML VIAL ONE (10:25)
[2017-08-15] MEDS ORDERED: FENTANYL CITRATE INJ 50 MCG/1 ML 2 ML VIAL ONE (10:26)
[2017-08-15] MEDS ORDERED: MIDAZOLAM HCL 1 MG/ML 2ML VIAL ONE (10:26)
[2017-08-15] MEDS ORDERED: Cysto-Conray II 17.2% 250ML BOTTLE ONE (11:20)
[2017-08-15] MEDS ORDERED: KETAMINE HCL INJ 50 MG/ML 10 ML VIAL ONE (11:38)
--- NOTE | 2017-08-15 12:02 | [facility] Post Operative Brief Note ---
Immediate Operative Summary Operative Date Aug 15, 2017. Pre-Operative Diagnosis Left ureteral stone, urosepsis , retention Post-Operative Diagnosis Same as preoperative diagnosis Procedure(s) Performed Cystoscopy, left ureteral stent insertion, left retrograde Surgeon Dr. Scott Instrument Worker Surgeon(s) None Estimated Blood Loss 5 ML Findings Consistent with Post-Op Diagnosis Specimens None Drains 20 bartlett, 6 by 26 stent Anesthesia Type MAC
--- NOTE | 2017-08-15 12:07 | DIAGNOSTIC IMAGING REPORT ---
RETROGRADE INCLUDES KUB CLINICAL HISTORY: 72 years-old Male presenting with LEFT STENT PLACEMENT. TECHNIQUE: 2 fluoroscopic spot image(s) obtained as part of an intraoperative procedure. COMPARISON: CT from 08/14/2017. FINDINGS/IMPRESSION: A guidewire was introduced into the left renal collecting system, which was opacified with contrast. The left renal collecting system is dilated. Subsequently, a left ureteral stent was placed. Surgical clips project over the left periaortic region. Please see surgical report for further details. Fluoroscopy dosage (mGy): Not available. Fluoroscopy time: 16 seconds. Number of fluoroscopic spot images: 2. Electronically signed by: Frederic Gil M.D. 08/15/2017 12:06 PM Dictated Date/Time: 08/15/2017 12:04 PM
--- NOTE | 2017-08-15 12:27 | Anesthesiology Progress Note ---
Anesthesia Post Op Note Date & Time Aug 15, 2017 at 12:26 Vital Signs Pain Intensity: 3 Vital Signs Past 12 Hours Date Time Temp Pulse Resp B/P (MAP) Pulse Ox O2 Delivery O2 Flow Rate FiO2 08/15/17 12:15 103 16 101/55 97 Oxymask 10 08/15/17 12:09 37.1 114 16 105/56 95 Oxymask 10 08/15/17 08:00 Room Air 08/15/17 07:50 36.5 91 18 105/62 (76) 93 Room Air 08/15/17 07:12 92 16 93 Room Air 08/15/17 04:23 94/48 (63) 08/15/17 04:00 94 Room Air 08/15/17 03:15 37.1 98 20 97/54 (68) 94 Room Air Notes Mental Status: alert / awake / arousable, participated in evaluation Pt Amnestic to Procedure: Yes Nausea / Vomiting: adequately controlled Pain: adequately controlled Airway Patency, RR, SpO2: stable & adequate BP & HR: stable & adequate Hydration State: stable & adequate Anesthetic Complications: no major complications apparent
--- NOTE | 2017-08-15 13:03 | OPERATIVE REPORT ---
DATE OF OPERATION: 08/15/2017 PROCEDURES PERFORMED: Cystoscopy, left retrograde and left stent placement. INDICATIONS: The patient is a 72-year-old male with a long history of stones, urinary tract infection, incomplete emptying, neurogenic bladder who was what appears to be a stent placed for ureteral stones in [place], approximately 5-6 weeks ago. I do not have access to these records. The patient has had a long history of stone disease. At that time, he was told he had some stones in his kidney as well as in his ureter. He went back and after 2-3 weeks had his stent removed. He was told that the stones had passed in his ureter. He does not remember having a KUB to document this. He did not see any stones pass. Subsequent to this, he did okay for approximately a week, but several days ago became quite ill with incredible lethargy and malaise, flank and abdominal pain, went to the Emergency Room in [place], was admitted to the ICU with hypotension and was on Levophed. The attempts to transfer him back to [place] for further care, once successful they refused to treat him. He was transferred here after he was able to get off the Levophed. Once here, he was admitted last night after CAT scan showed some left hydro with distal stones as well as left renal stones in the lower pole. The patient was counseled of this morning as a routine consult at 7:00 a.m. The patient also had on CAT scan distended bladder, but he had a Marinelli catheter placed last night. In addition to all this, he has a history of having a factor deficiency, which causes him to be hypercoagulable. He has had a history of DVTs and is on Coumadin and has an elevated protime at this time. Fortunately, the catheter was draining clear urine this morning, but the patient has continued to have significant abdominal and left-sided flank and abdominal pain. He was somewhat somnolent. I discussed this with the hospitalist and the anesthesiologist and we agreed to try to place a stent under sedation. DESCRIPTION OF THE PROCEDURE: The patient was brought to the operating room where the Marinelli catheter was removed. The patient was given sedation, placed in dorsal lithotomy position and prepped and draped in usual sterile fashion. The catheter was carefully removed prior to prepping and draping him. The 24-Malian scope was removed. The bladder did not appear to be significantly inflamed, prostatic urethra was relatively open, did not spend a lot of time examining the bladder, so the left ureteral orifice. I was able to cannulate it with a dual flex guidewire and then passed a 5-Malian open-ended catheter over this. There did appear to be some purulent material that came after the wire was placed, but it did not a hypernephrotic drip from the open-ended catheter. I removed a guidewire and did inject some contrast to define the renal pelvis and then I replaced the guidewire and removed the 5-Malian open-ended catheter and placed a 6-Malian 26 cm stent over the guidewire and there was a good curl in the renal pelvis. I removed the wire, there was a good curl in the bladder and then replaced the 20-Malian Marinelli catheter and the patient was transferred back to the recovery room in stable condition. I attest to the content of the Intraoperative Record and any orders documented therein. Any exception s are noted below.
[2017-08-15 14:15] LABS: CKMB 4.7 ng/ml (0.5-3.6)
--- NOTE | 2017-08-15 15:38 | Pharmacy Progress Note ---
Pharmacy Abx Dose Short Note Date of Service Aug 15, 2017. Assessment & Plan Assessment 72 year old male receiving VANC/LVQ/ZOSYN for treatment of pulmonary/sepsis/UTI Day # 1 of antimicrobial therapy. Plan Vancomycin * RANDOM level of 17.0 mcg/mL is therapeutic. It is time to redose. Renal function slightly improved today. * Maintenance Dose: Vanc 1gram (~15mg/kg) IV every 12 hours. Will monitor closely, however want to provide good penetration to site of infection. * Goal trough level: 15 to 20 mcg/mL * VANC Trough level @ Css ordered prior to 08/16/17 1600 dose. ZOSYN: Continue 3.375 grams CI every 12 hour for GFR ~20mL/min. May advance tomorrow if renal fnx continues to improve? LVQ: Continue 750mg IV every 48 hours. Pharmacy will continue to follow and will adjust dose/frequency as necessary. Thank you.
[2017-08-15] MEDS ORDERED: WARFARIN SOD 5 MG TAB PO SCH (16:00)
[2017-08-15] MEDS: VANCOMYCIN INJ 1,000 MG in SODIUM CHLORIDE 0.9% 250ML 250 ML IV SCH (16:07)
[2017-08-15] MEDS: TAMSULOSIN HCL 0.4 MG CAP PO SCH (20:39)
[2017-08-16] VITALS (7 sets, daily range): BP systolic 97–118; BP diastolic 56–67; PULSE 81–90; TEMP 36.5–37.7; O2SAT 93–95
[2017-08-16] MEDS: NSS + 20MEQ KCL 1000ML 1,000 ML IV SCH ×3 (01:40→11:42)
[2017-08-16] MEDS: VANCOMYCIN INJ 1,000 MG in SODIUM CHLORIDE 0.9% 250ML 250 ML IV SCH (03:58)
[2017-08-16 06:51] LABS: BASO % 0.1 %; BASO ABS # 0.01 K/uL (0-0.2); EOS % 0.2 %; EOS ABS # 0.03 K/uL (0-0.5); HEMATOCRIT 26.4 % (42-52); HEMOGLOBIN 8.8 g/dL (14.0-18.0); IG# 0.22 K/uL (0.00-0.02); LYMPH % 4.9 %; LYMPH ABS # 0.72 K/uL (1.2-3.4); MEAN CELL VOLUME 85.4 fL (80-100); MEAN CORPUSCULAR HEMOGLOBIN 28.5 pg (25-34); MEAN CORPUSCULAR HGB CONC 33.3 g/dl (32-36); MEAN PLATELET VOLUME 9.6 fL (7.4-10.4); MONO % 5.9 %; MONO ABS # 0.87 K/uL (0.11-0.59); NEUT % 87.4 %; PLATELET COUNT 178 K/uL (130-400); RED CELL DISTRIBUTION WIDTH CV 14.9 % (11.5-14.5); RED CELL DISTRIBUTION WIDTH SD 46.6 fL (36.4-46.3); WHITE BLOOD COUNT 14.65 K/uL (4.8-10.8)
[2017-08-16 07:19] LABS: PTT PATIENT 58.4 SECONDS (21.0-31.0)
[2017-08-16 07:21] LABS: ALBUMIN 1.9 gm/dl (3.4-5.0); CALCIUM 7.8 mg/dl (8.5-10.1); CREATININE 3.08 mg/dl (0.60-1.40); POTASSIUM 4.6 mmol/L (3.5-5.1)
[2017-08-16] MEDS: ONDANSETRON INJ 2 MG/ML 2 ML VIAL IV PRN (07:23)
[2017-08-16 07:34] LABS: TOTAL PROTEIN 5.3 gm/dl (6.4-8.2)
--- NOTE | 2017-08-16 07:37 | DIAGNOSTIC IMAGING REPORT ---
CHEST ONE VIEW PORTABLE CLINICAL HISTORY: pna dyspnea COMPARISON STUDY: 08/15/2017 FINDINGS: Unchanging right basilar infiltrate. Small bilateral pleural effusions unchanged. Upper lungs are considered clear. No significant cardiac enlargement. IMPRESSION: Unchanged exam with no significant change compared to the prior study. The above report was generated using voice recognition software. It may contain grammatical, syntax or spelling errors. Electronically signed by: José Luis Chacon M.D. 08/16/2017 7:36 AM Dictated Date/Time: 08/16/2017 7:34 AM
[2017-08-16] MEDS: PIPERACILL/TAZOBAC IV 3.375 GM in DEXTROSE 5% 100ML IV SCH ×2 (09:39→22:34)
--- NOTE | 2017-08-16 13:03 | Progress Note ---
Subjective Date of Service: Aug 16, 2017. Subjective Pt evaluation today including: conversation w/ patient, conversation w/ family , physical exam, lab review, conversation w/ rehab consultant Voiding: bartlett catheter in place pt apparently was not doing CIC because of pain , explained to pt and need for this as outpatient Pt better but still weak Problem List Medical Problems: (1) Acute kidney injury superimposed on chronic kidney disease Status: Acute (2) Right lower lobe pneumonia Status: Acute (3) Sepsis Status: Acute (4) UTI (urinary tract infection) Status: Acute Objective Vital Signs Date Time Temp Pulse Resp B/P (MAP) Pulse Ox O2 Delivery O2 Flow Rate FiO2 08/16/17 12:00 Room Air 08/16/17 11:31 37.5 90 18 97/56 (70) 93 Room Air 08/16/17 08:00 Room Air 08/16/17 07:33 36.9 82 16 118/65 (82) 94 Room Air 08/16/17 04:00 Room Air 08/16/17 03:43 36.5 82 18 108/63 (78) 94 Room Air 08/16/17 00:00 Room Air 08/15/17 23:22 37.4 91 21 97/53 (68) 94 Room Air 08/15/17 20:00 Room Air 08/15/17 19:04 36.9 90 24 102/63 (76) 93 Room Air 08/15/17 16:00 Room Air 08/15/17 15:09 36.6 90 24 98/60 (73) 97 Nasal Cannula 2.5 Laboratory Results Last 24 Hours Test 08/15/17 13:27 08/16/17 06:10 Total Creatine Kinase 124 U/L Creatine Kinase MB 4.7 ng/ml Creatine Kinase MB Ratio 3.8 Troponin I < 0.015 ng/ml Random Vancomycin Level 17.0 mcg/ml White Blood Count 14.65 K/uL Red Blood Count 3.09 M/uL Hemoglobin 8.8 g/dL Hematocrit 26.4 % Mean Corpuscular Volume 85.4 fL Mean Corpuscular Hemoglobin 28.5 pg Mean Corpuscular Hemoglobin Concent 33.3 g/dl Platelet Count 178 K/uL Mean Platelet Volume 9.6 fL Neutrophils (%) (Auto) 87.4 % Lymphocytes (%) (Auto) 4.9 % Monocytes (%) (Auto) 5.9 % Eosinophils (%) (Auto) 0.2 % Basophils (%) (Auto) 0.1 % Neutrophils # (Auto) 12.80 K/uL Lymphocytes # (Auto) 0.72 K/uL Monocytes # (Auto) 0.87 K/uL Eosinophils # (Auto) 0.03 K/uL Basophils # (Auto) 0.01 K/uL RDW Standard Deviation 46.6 fL RDW Coefficient of Variation 14.9 % Immature Granulocyte % (Auto) 1.5 % Immature Granulocyte # (Auto) 0.22 K/uL Dohle Bodies 1+ Echinocytes 1+ Prothrombin Time 21.0 SECONDS Prothromb Time International Ratio 2.0 Activated Partial Thromboplast Time 58.4 SECONDS Partial Thromboplastin Ratio 2.2 Sodium Level 140 mmol/L Potassium Level 4.6 mmol/L Chloride Level 117 mmol/L Carbon Dioxide Level 14 mmol/L Anion Gap 9.0 mmol/L Blood Urea Nitrogen 56 mg/dl Creatinine 3.08 mg/dl Est Creatinine Clear Calc Drug Dose 20.1 ml/min Estimated GFR () 22.1 Estimated GFR (Non- 19.1 BUN/Creatinine Ratio 18.2 Random Glucose 89 mg/dl Calcium Level 7.8 mg/dl Total Bilirubin 0.4 mg/dl Direct Bilirubin 0.1 mg/dl Aspartate Amino Transf (AST/SGOT) 20 U/L Alanine Aminotransferase (ALT/SGPT) 16 U/L Alkaline Phosphatase 91 U/L Total Protein 5.3 gm/dl Albumin 1.9 gm/dl Assessment and Plan pt will need ureteroscopy for distal stones and to learn cic and antibiotics for several weeks
[2017-08-16] MEDS ORDERED: VANCOMYCIN TROUGH ONE (15:30)
[2017-08-16] MEDS: ACETAMINOPHEN 325 MG TAB PO PRN (15:36)
--- NOTE | 2017-08-16 16:25 | Progress Note ---
Subjective Date of Service: Aug 16, 2017. Subjective Pt evaluation today including: conversation w/ patient, conversation w/ family , physical exam, lab review, conversation w/ production consultant, review of inpatient medication list Pain: no further flank pain PO Intake: adequate Voiding: bartlett catheter in place patient feeling better today, no pain, appetite better, breathing well at the bedside, updated her he follows with nephrology at [place], they had discussed possible need for HD in the future patient does not want to be on HD, would only consider if it was short term discussed that his GFR would put him at stage IV CKD, no need for HD currently reviewed labs, Cr up slightly to 3.0, WBC now up to 14k, INR 2.[address] Scott Problem List Medical Problems: (1) Acute kidney injury superimposed on chronic kidney disease Status: Acute (2) Right lower lobe pneumonia Status: Acute (3) Sepsis Status: Acute (4) UTI (urinary tract infection) Status: Acute Review of Systems Constitutional: + weakness, + fatigue Respiratory: + cough Neurologic: + weakness, + balance problems All Other Systems: Reviewed and Negative Medications Current Inpatient Medications Medications (Trade) Dose Ordered Sig/Dominik Route Start Time Stop Time Status Last Admin Dose Admin Potassium Chloride/Sodium Chloride 1,000 ml @ 80 mls/hr [id number] IV 08/14/17 22:00 09/13/17 21:59 08/16/17 11:42 80 MLS/HR Acetaminophen (Tylenol Tab) 650 mg Q4H PRN PO 08/14/17 21:30 09/13/17 21:29 08/16/17 15:36 650 MG Ondansetron HCl (Zofran Inj) 4 mg Q6H PRN IV 08/14/17 21:30 09/13/17 21:29 08/16/17 07:23 4 MG Pantoprazole Sodium (Protonix Tab) 40 mg DAILY PO 08/15/17 09:00 09/14/17 08:59 Future Hold Sodium Bicarbonate (Sodium Bicarbonate Tab) 650 mg DAILY PO 08/15/17 09:00 09/14/17 08:59 Future Hold Warfarin Sodium (Coumadin Tab) 2.5 mg Mo@1600 PO 08/17/17 16:00 09/16/17 15:59 Future Hold Warfarin Sodium (Coumadin Tab) 5 mg SuTuWeThFrSa@1600 PO 08/15/17 16:00 09/14/17 15:59 Future Hold Miscellaneous Information (Consult) 1 ea UD PRN N/A 08/14/17 21:45 09/13/17 21:44 Miscellaneous Information (Consult) 1 ea UD PRN N/A 08/14/17 21:45 09/13/17 21:44 Levofloxacin (Consult) 1 ea UD PRN N/A 08/14/17 23:15 09/13/17 23:14 Tamsulosin HCl (Flomax Cap) 0.8 mg PM PO 08/15/17 21:00 09/14/17 20:59 08/15/17 20:39 0.8 MG Piperacillin Sod/ Tazobactam Sod 3.375 gm/Dextrose 115 ml @ 28.75 mls/ hr Q12H IV 08/15/17 10:00 08/22/17 09:59 08/16/17 09:39 28.75 MLS/HR Albuterol/ Ipratropium (Duoneb) 3 ml Q4 PRN INH 08/15/17 08:00 09/14/17 07:59 Levofloxacin 750 mg/Prmx 150 ml @ 100 mls/hr Q48H IV 08/16/17 23:00 08/23/17 22:59 Objective Vital Signs Date Time Temp Pulse Resp B/P (MAP) Pulse Ox O2 Delivery O2 Flow Rate FiO2 08/16/17 15:26 37.6 86 24 110/62 (78) 94 Room Air 08/16/17 12:00 Room Air 08/16/17 11:31 37.5 90 18 97/56 (70) 93 Room Air 08/16/17 08:00 Room Air 08/16/17 07:33 36.9 82 16 118/65 (82) 94 Room Air 08/16/17 04:00 Room Air 08/16/17 03:43 36.5 82 18 108/63 (78) 94 Room Air 08/16/17 00:00 Room Air 08/15/17 23:22 37.4 91 21 97/53 (68) 94 Room Air 08/15/17 20:00 Room Air 08/15/17 19:04 36.9 90 24 102/63 (76) 93 Room Air Physical Exam General Appearance: no apparent distress, + thin Eyes: normal inspection, EOMI, sclerae normal ENT: normal ENT inspection, hearing grossly normal, pharynx normal Neck: supple, no adenopathy, no JVD, trachea midline Respiratory/Chest: chest non-tender, lungs clear, normal breath sounds, no respiratory distress, no accessory muscle use Cardiovascular: regular rate, rhythm, no edema, no gallop, no JVD, no murmur Abdomen: normal bowel sounds, non tender, soft, no organomegaly Extremities: normal range of motion, non-tender, normal inspection, no pedal edema, no calf tenderness, pelvis stable Neurologic/Psychiatric: porter sample case II-XII nml as tested, alert, normal mood/affect, oriented x 3, + motor weakness (generalized) Skin: normal color, warm/dry, no rash Laboratory Results Last 24 Hours Test 08/16/17 06:10 08/16/17 15:29 White Blood Count 14.65 K/uL Red Blood Count 3.09 M/uL Hemoglobin 8.8 g/dL Hematocrit 26.4 % Mean Corpuscular Volume 85.4 fL Mean Corpuscular Hemoglobin 28.5 pg Mean Corpuscular Hemoglobin Concent 33.3 g/dl Platelet Count 178 K/uL Mean Platelet Volume 9.6 fL Neutrophils (%) (Auto) 87.4 % Lymphocytes (%) (Auto) 4.9 % Monocytes (%) (Auto) 5.9 % Eosinophils (%) (Auto) 0.2 % Basophils (%) (Auto) 0.1 % Neutrophils # (Auto) 12.80 K/uL Lymphocytes # (Auto) 0.72 K/uL Monocytes # (Auto) 0.87 K/uL Eosinophils # (Auto) 0.03 K/uL Basophils # (Auto) 0.01 K/uL RDW Standard Deviation 46.6 fL RDW Coefficient of Variation 14.9 % Immature Granulocyte % (Auto) 1.5 % Immature Granulocyte # (Auto) 0.22 K/uL Dohle Bodies 1+ Echinocytes 1+ Prothrombin Time 21.0 SECONDS Prothromb Time International Ratio 2.0 Activated Partial Thromboplast Time 58.4 SECONDS Partial Thromboplastin Ratio 2.2 Sodium Level 140 mmol/L Potassium Level 4.6 mmol/L Chloride Level 117 mmol/L Carbon Dioxide Level 14 mmol/L Anion Gap 9.0 mmol/L Blood Urea Nitrogen 56 mg/dl Creatinine 3.08 mg/dl Est Creatinine Clear Calc Drug Dose 20.1 ml/min Estimated GFR () 22.1 Estimated GFR (Non- 19.1 BUN/Creatinine Ratio 18.2 Random Glucose 89 mg/dl Calcium Level 7.8 mg/dl Total Bilirubin 0.4 mg/dl Direct Bilirubin 0.1 mg/dl Aspartate Amino Transf (AST/SGOT) 20 U/L Alanine Aminotransferase (ALT/SGPT) 16 U/L Alkaline Phosphatase 91 U/L Total Protein 5.3 gm/dl Albumin 1.9 gm/dl Assessment and Plan 72-year-old male with sepsis secondary to possible multiple sources including RIGHT lower lobe pneumonia as well as UTI. Initially hypotensive requiring vasoactive medications at [facility]. - Septic shock prior to arrival secondary to right lower lobe pneumonia and UTI associated with ureteral stone no further shock, BP stable off of vasopressors, was only on Levophed briefly at [facility] continue IV fluids today at BP low normal at times and intake suboptimal continue broad spectrum antibiotics with Zosyn, Levaquin, Vancomycin, low grade temp at 37.6 and WBC trending up slightly blood cultures pending would try to follow up on cultures from [facility] if available pneumonia, breathing well on room air, mild cough but no sputum production - Left ureteral stone, 4mm, with hydronephrosis making adequate urine in bartlett cystoscopy with left ureteral stent placed on 08/15, no complications follow up with urology recommendations on discharge typically follows with urology in [place] - DEBBIE vs CKD stage IV: likely combination of obstruction with stone and prerenal with sepsis/dehydration Cr was 2.8 yesterday and 3.0 today, adequate UO discussed with patient and his , he follows with nephrology in [place] HD discussed as outpatient, he would not want to be on it, he refused to get a fistula thinking now that it is less likely DEBBIE, likely at his baseline - H/o DVT and Factor V leiden dopplers negative for clot currently INR is 2.0 while holding Coumadin high risk for bleeding with cystoscopy, hold further Coumadin check INR tomorrow, if < 2.0 then would start Heparin SC for prophylaxis resume Coumadin once cleared by Urology DNR
[2017-08-16] MEDS: TAMSULOSIN HCL 0.4 MG CAP PO SCH (20:44)
[2017-08-16] MEDS ORDERED: LEVOFLOXACIN / D5W 750 MG in PREMIXED IN D5W 150 ML IV SCH (23:00)
[2017-08-16] MEDS ORDERED: LEVOFLOXACIN 500MG / D5W IV SCH (23:00)
[2017-08-17] MEDS: NSS + 20MEQ KCL 1000ML 1,000 ML IV SCH ×2 (00:17→12:34)
[2017-08-17 03:41] VITALS: BP 122/61; PULSE 67; TEMP 37.4; O2SAT 95
[2017-08-17 07:16] LABS: BASO % 0.1 %; BASO ABS # 0.01 K/uL (0-0.2); EOS % 0.3 %; EOS ABS # 0.03 K/uL (0-0.5); HEMATOCRIT 26.4 % (42-52); HEMOGLOBIN 9.1 g/dL (14.0-18.0); IG# 0.22 K/uL (0.00-0.02); LYMPH ABS # 0.56 K/uL (1.2-3.4); MEAN CELL VOLUME 84.6 fL (80-100); MEAN CORPUSCULAR HEMOGLOBIN 29.2 pg (25-34); MEAN CORPUSCULAR HGB CONC 34.5 g/dl (32-36); MONO % 10.9 %; MONO ABS # 1.02 K/uL (0.11-0.59); NEUT % 80.4 %; NEUT ABS # 7.54 K/uL (1.4-6.5); PLATELET COUNT 165 K/uL (130-400); RED CELL DISTRIBUTION WIDTH SD 46.2 fL (36.4-46.3); WHITE BLOOD COUNT 9.38 K/uL (4.8-10.8)
[2017-08-17 07:30] LABS: INR 1.4 (0.9-1.1); PTT PATIENT 36.6 SECONDS (21.0-31.0)
[2017-08-17] MEDS: ONDANSETRON INJ 2 MG/ML 2 ML VIAL IV PRN ×2 (07:34→16:56)
[2017-08-17 07:48] LABS: ALBUMIN 1.7 gm/dl (3.4-5.0); CALCIUM 8.1 mg/dl (8.5-10.1); CREATININE 2.75 mg/dl (0.60-1.40); POTASSIUM 4.5 mmol/L (3.5-5.1); TOTAL PROTEIN 5.2 gm/dl (6.4-8.2)
[2017-08-17 08:12] VITALS: BP 131/69; PULSE 81; TEMP 37.2; O2SAT 96
[2017-08-17] MEDS ORDERED: MAGNESIUM SULFATE 1GM / D5W 1 GM in PREMIXED IN D5W 100 ML IV ONE (08:30)
[2017-08-17] MEDS: PIPERACILL/TAZOBAC IV 3.375 GM in DEXTROSE 5% 100ML IV SCH (10:13)
--- NOTE | 2017-08-17 10:15 | Progress Note ---
Subjective Date of Service: Aug 17, 2017. Subjective Pt evaluation today including: conversation w/ patient, chart review, lab review Voiding: bartlett catheter in place (patent, draining clear, yellow urine ) 72 yo male s/p left ureteral stent placement for sepsis. Pt denies pain this morning. Blood cultures preliminarily negative. Pt states he does not want to resume CIC at this time d/t fear of pain with cathing and recent infection. Problem List Medical Problems: (1) Acute kidney injury superimposed on chronic kidney disease Status: Acute (2) Right lower lobe pneumonia Status: Acute (3) Sepsis Status: Acute (4) UTI (urinary tract infection) Status: Acute Review of Systems Constitutional: No fever, No chills Respiratory: No shortness of breath Cardiac: No chest pain Abdomen: No pain, No nausea, No vomiting Male : No hematuria Heme: No abnormal bleeding/bruising Objective Vital Signs Date Time Temp Pulse Resp B/P (MAP) Pulse Ox O2 Delivery O2 Flow Rate FiO2 08/17/17 08:12 37.2 81 20 131/69 (89) 96 Room Air 08/17/17 08:03 Room Air 08/17/17 04:00 Room Air 08/17/17 03:41 37.4 67 18 122/61 (81) 95 Room Air 08/17/17 00:00 Room Air 08/16/17 23:34 37.2 83 19 118/67 (84) 95 Room Air 08/16/17 20:00 Room Air 08/16/17 19:58 37.2 08/16/17 19:02 37.7 81 22 106/61 (76) 95 Room Air 08/16/17 16:00 Room Air 08/16/17 15:26 37.6 86 24 110/62 (78) 94 Room Air 08/16/17 12:00 Room Air 08/16/17 11:31 37.5 90 18 97/56 (70) 93 Room Air Physical Exam General Appearance: no apparent distress Eyes: normal inspection ENT: hearing grossly normal Neck: no JVD Respiratory/Chest: no respiratory distress, no accessory muscle use Cardiovascular: no JVD Extremities: normal inspection Neurologic/Psychiatric: alert, normal mood/affect, oriented x 3 Skin: normal color Laboratory Results Last 24 Hours Test 08/16/17 15:29 08/17/17 06:35 Vancomycin Level Trough 28.8 mcg/ml White Blood Count 9.38 K/uL Red Blood Count 3.12 M/uL Hemoglobin 9.1 g/dL Hematocrit 26.4 % Mean Corpuscular Volume 84.6 fL Mean Corpuscular Hemoglobin 29.2 pg Mean Corpuscular Hemoglobin Concent 34.5 g/dl Platelet Count 165 K/uL Mean Platelet Volume 9.0 fL Neutrophils (%) (Auto) 80.4 % Lymphocytes (%) (Auto) 6.0 % Monocytes (%) (Auto) 10.9 % Eosinophils (%) (Auto) 0.3 % Basophils (%) (Auto) 0.1 % Neutrophils # (Auto) 7.54 K/uL Lymphocytes # (Auto) 0.56 K/uL Monocytes # (Auto) 1.02 K/uL Eosinophils # (Auto) 0.03 K/uL Basophils # (Auto) 0.01 K/uL RDW Standard Deviation 46.2 fL RDW Coefficient of Variation 15.0 % Immature Granulocyte % (Auto) 2.3 % Immature Granulocyte # (Auto) 0.22 K/uL Prothrombin Time 14.9 SECONDS Prothromb Time International Ratio 1.4 Activated Partial Thromboplast Time 36.6 SECONDS Partial Thromboplastin Ratio 1.4 Sodium Level 140 mmol/L Potassium Level 4.5 mmol/L Chloride Level 115 mmol/L Carbon Dioxide Level 14 mmol/L Anion Gap 11.0 mmol/L Blood Urea Nitrogen 50 mg/dl Creatinine 2.75 mg/dl Est Creatinine Clear Calc Drug Dose 22.9 ml/min Estimated GFR () 25.4 Estimated GFR (Non- 21.9 BUN/Creatinine Ratio 18.1 Random Glucose 83 mg/dl Calcium Level 8.1 mg/dl Magnesium Level 1.7 mg/dl Total Bilirubin 0.4 mg/dl Direct Bilirubin 0.2 mg/dl Aspartate Amino Transf (AST/SGOT) 16 U/L Alanine Aminotransferase (ALT/SGPT) 17 U/L Alkaline Phosphatase 108 U/L Total Protein 5.2 gm/dl Albumin 1.7 gm/dl Assessment and Plan POD #2 s/p left ureteral stent placement for urosepsis AFVSS. Will plan to leave bartlett catheter in place for now to allow bladder rest. Hopefully he will be able to resume CIC in 1-2 weeks as an outpatient with less pain and difficulty. Can transition to PO Levaquin or Cipro prior to d/c home. Recommend 2 weeks of therapy. Pt OK for [facility] from [facility]. Will arrange for outpatient f/u with Dr. Scott in 1 week. Recall PRN issues. Thanks for allowing us to participate in this pt's care.
[2017-08-17] MEDS: ACETAMINOPHEN 325 MG TAB PO PRN (11:45)
[2017-08-17 12:33] VITALS: BP 146/68; PULSE 87; TEMP 36.8; O2SAT 94
--- NOTE | 2017-08-17 14:44 | Hospitalist Progress Note ---
Hospitalist Progress Note Date of Service Aug 17, 2017. (Mansi Blanton ., HAM) Subjective Pt evaluation today including: conversation w/ patient, physical exam, lab review, review of studies, review of inpatient medication list Voiding: bartlett catheter in place (draining concentrated yellow urine ) Patient sitting in bedside chair. Feeling well. Eating and drinking OK. Patient denies any fever, chills, sweats, lightheadedness, dizziness, vision changes, CP, palpitations, edema, SOB, wheezing, cough, abdominal pain, nausea, vomiting, diarrhea, urinary symptoms, melena, numbness/tingling, weakness, muscle/joint pain, anxiety/depression, active bleeding, or new skin discoloration/changes. (Mansi Blanton, RENOC) Medications Current Inpatient Medications Medications (Trade) Dose Ordered Sig/Dominik Route Start Time Stop Time Status Last Admin Dose Admin Potassium Chloride/Sodium Chloride 1,000 ml @ 80 mls/hr [id number] IV 08/14/17 22:00 09/13/17 21:59 08/17/17 12:34 80 MLS/HR Acetaminophen (Tylenol Tab) 650 mg Q4H PRN PO 08/14/17 21:30 09/13/17 21:29 08/17/17 11:45 650 MG Ondansetron HCl (Zofran Inj) 4 mg Q6H PRN IV 08/14/17 21:30 09/13/17 21:29 08/17/17 07:34 4 MG Pantoprazole Sodium (Protonix Tab) 40 mg DAILY PO 08/15/17 09:00 09/14/17 08:59 Future Hold Sodium Bicarbonate (Sodium Bicarbonate Tab) 650 mg DAILY PO 08/15/17 09:00 09/14/17 08:59 Future Hold Warfarin Sodium (Coumadin Tab) 2.5 mg Mo@1600 PO 08/17/17 16:00 09/16/17 15:59 Future Hold Warfarin Sodium (Coumadin Tab) 5 mg SuTuWeThFrSa@1600 PO 08/15/17 16:00 09/14/17 15:59 Future Hold Miscellaneous Information (Consult) 1 ea UD PRN N/A 08/14/17 21:45 09/13/17 21:44 Miscellaneous Information (Consult) 1 rikki UD PRN N/A 08/14/17 21:45 09/13/17 21:44 Levofloxacin (Consult) 1 ea UD PRN N/A 08/14/17 23:15 09/13/17 23:14 Tamsulosin HCl (Flomax Cap) 0.8 mg PM PO 08/15/17 21:00 09/14/17 20:59 08/16/17 20:44 0.8 MG Piperacillin Sod/ Tazobactam Sod 3.375 gm/Dextrose 115 ml @ 28.75 mls/ hr Q12H IV 08/15/17 10:00 08/22/17 09:59 08/17/17 10:13 28.75 MLS/HR Albuterol/ Ipratropium (Duoneb) 3 ml Q4 PRN INH 08/15/17 08:00 09/14/17 07:59 Levofloxacin 750 mg/Prmx 150 ml @ 100 mls/hr Q48H IV 08/16/17 23:00 08/23/17 22:59 08/16/17 20:44 100 MLS/HR (Mansi Blanton, PA-C) Objective Vital Signs Date Time Temp Pulse Resp B/P (MAP) Pulse Ox O2 Delivery O2 Flow Rate FiO2 08/17/17 12:33 36.8 87 20 146/68 (94) 94 Room Air 08/17/17 12:00 Room Air 08/17/17 08:12 37.2 81 20 131/69 (89) 96 Room Air 08/17/17 08:03 Room Air 08/17/17 04:00 Room Air 08/17/17 03:41 37.4 67 18 122/61 (81) 95 Room Air 08/17/17 00:00 Room Air 08/16/17 23:34 37.2 83 19 118/67 (84) 95 Room Air 08/16/17 20:00 Room Air 08/16/17 19:58 37.2 08/16/17 19:02 37.7 81 22 106/61 (76) 95 Room Air 08/16/17 16:00 Room Air 08/16/17 15:26 37.6 86 24 110/62 (78) 94 Room Air (Mansi Blanton, PA-C) Physical Exam General Appearance: no apparent distress Eyes: normal inspection, PERRL ENT: hearing grossly normal Neck: supple Respiratory/Chest: lungs clear, no respiratory distress, no accessory muscle use Cardiovascular: regular rate, rhythm Abdomen: normal bowel sounds, non tender, soft, + pertinent finding (+ostomy site with output ) Extremities: no pedal edema, no calf tenderness Neurologic/Psychiatric: alert, normal mood/affect, oriented x 3 Skin: normal color, warm/dry, no rash (Mansi Blanton, HAM) Laboratory Results Last 24 Hours Test 08/16/17 15:29 08/17/17 06:35 08/17/17 12:04 Vancomycin Level Trough 28.8 mcg/ml White Blood Count 9.38 K/uL Red Blood Count 3.12 M/uL Hemoglobin 9.1 g/dL Hematocrit 26.4 % Mean Corpuscular Volume 84.6 fL Mean Corpuscular Hemoglobin 29.2 pg Mean Corpuscular Hemoglobin Concent 34.5 g/dl Platelet Count 165 K/uL Mean Platelet Volume 9.0 fL Neutrophils (%) (Auto) 80.4 % Lymphocytes (%) (Auto) 6.0 % Monocytes (%) (Auto) 10.9 % Eosinophils (%) (Auto) 0.3 % Basophils (%) (Auto) 0.1 % Neutrophils # (Auto) 7.54 K/uL Lymphocytes # (Auto) 0.56 K/uL Monocytes # (Auto) 1.02 K/uL Eosinophils # (Auto) 0.03 K/uL Basophils # (Auto) 0.01 K/uL RDW Standard Deviation 46.2 fL RDW Coefficient of Variation 15.0 % Immature Granulocyte % (Auto) 2.3 % Immature Granulocyte # (Auto) 0.22 K/uL Prothrombin Time 14.9 SECONDS Prothromb Time International Ratio 1.4 Activated Partial Thromboplast Time 36.6 SECONDS Partial Thromboplastin Ratio 1.4 Sodium Level 140 mmol/L Potassium Level 4.5 mmol/L Chloride Level 115 mmol/L Carbon Dioxide Level 14 mmol/L Anion Gap 11.0 mmol/L Blood Urea Nitrogen 50 mg/dl Creatinine 2.75 mg/dl Est Creatinine Clear Calc Drug Dose 22.9 ml/min Estimated GFR () 25.4 Estimated GFR (Non- 21.9 BUN/Creatinine Ratio 18.1 Random Glucose 83 mg/dl Calcium Level 8.1 mg/dl Magnesium Level 1.7 mg/dl Total Bilirubin 0.4 mg/dl Direct Bilirubin 0.2 mg/dl Aspartate Amino Transf (AST/SGOT) 16 U/L Alanine Aminotransferase (ALT/SGPT) 17 U/L Alkaline Phosphatase 108 U/L Total Protein 5.2 gm/dl Albumin 1.7 gm/dl Random Vancomycin Level 20.7 mcg/ml (Mansi Blanton ., RENOC) Assessment and Plan 72-year-old male with sepsis secondary to possible multiple sources including RIGHT lower lobe pneumonia as well as UTI. Initially hypotensive requiring vasoactive medications at [facility]. Septic shock secondary to right lower lobe pneumonia and UTI associated with ureteral stone- RESOLVED: - Tele for cardiac monitoring- 6 beat run of VTach overnight - Hypotension- RESOLVED- treated w/ Levophed at [facility] - Currently on IV Zosyn and Levaquin- will need x2 weeks of antibiotic therapy per urology at discharge- will d/c Zosyn today - MRSA negative- IV Vancomycin d/c'ed - BCx- NGTD Hypomagnesemia: Replaced w/ IV 1 gm Mag today Left ureteral stone, 4mm with hydronephrosis s/p stent by Dr. Scott on 08/15: - Urology consulted, appreciate recommendations- f/u outpatient in 1 week, OK to resume Coumadin, Levaquin x2 weeks at discharge, leave Bartlett in until f/u - Continue Flomax 0.8 mg HS DEBBIE on CKD stage IV- unsure of baseline hepatology physician: - Treated w/ IVF @ 80 ml/hr - Avoid nephrotoxic agents and renally dose medications as appropriate - Follow PRP- hepatology physician 2.75 today - Follows w/ nephrology in [place]- refused HD if needed in past- continue outpatient f/u h/o DVT and Factor V Leiden: - Venous Doppler negative for DVT - Spoke w/ Melly Johnson- OK to resume Coumadin today- follow PT/INR and adjust dose PRN for INR goal 2-3 GI prophylaxis: Protonix daily DVT prophylaxis: Coumadin Code status: LEVEL V, DNR Dispo: Discharge to home once medically stable- likely tomorrow (Mansi Blanton ., RENOC) Supervising Note Dr. Rodriguez I performed a history and physical examination on the patient. I reviewed above note and agree with it. I discussed plan with APC and patient. During my face to face encounter with the patient, I answered all of the patient's questions. (Mehdi Rodriguez M.D.)
[2017-08-17 15:35] VITALS: BP 128/75; PULSE 73; TEMP 37.1; O2SAT 96
[2017-08-17] MEDS ORDERED: WARFARIN SOD 2.5 MG TAB PO SCH ×2 (16:00)
[2017-08-17] MEDS ORDERED: RANITIDINE HCL 150 MG TAB PO ONE (17:15)
[2017-08-17] MEDS ORDERED: NURSING VERBAL MED ORDER ONE (17:15)
[2017-08-17] MEDS: TAMSULOSIN HCL 0.4 MG CAP PO SCH (21:00)
--- NOTE | 2017-08-17 22:14 | Progress Note ---
Subjective Date of Service: Aug 17, 2017. Problem List Medical Problems: (1) Acute kidney injury superimposed on chronic kidney disease Status: Acute (2) Right lower lobe pneumonia Status: Acute (3) Sepsis Status: Acute (4) UTI (urinary tract infection) Status: Acute Objective Vital Signs Date Time Temp Pulse Resp B/P (MAP) Pulse Ox O2 Delivery O2 Flow Rate FiO2 08/17/17 16:00 Room Air 08/17/17 15:35 37.1 73 128/75 (92) 96 Room Air 08/17/17 12:33 36.8 87 20 146/68 (94) 94 Room Air 08/17/17 12:00 Room Air 08/17/17 08:12 37.2 81 20 131/69 (89) 96 Room Air 08/17/17 08:03 Room Air 08/17/17 04:00 Room Air 08/17/17 03:41 37.4 67 18 122/61 (81) 95 Room Air 08/17/17 00:00 Room Air 08/16/17 23:34 37.2 83 19 118/67 (84) 95 Room Air Laboratory Results Last 24 Hours Test 08/17/17 06:35 08/17/17 12:04 White Blood Count 9.38 K/uL Red Blood Count 3.12 M/uL Hemoglobin 9.1 g/dL Hematocrit 26.4 % Mean Corpuscular Volume 84.6 fL Mean Corpuscular Hemoglobin 29.2 pg Mean Corpuscular Hemoglobin Concent 34.5 g/dl Platelet Count 165 K/uL Mean Platelet Volume 9.0 fL Neutrophils (%) (Auto) 80.4 % Lymphocytes (%) (Auto) 6.0 % Monocytes (%) (Auto) 10.9 % Eosinophils (%) (Auto) 0.3 % Basophils (%) (Auto) 0.1 % Neutrophils # (Auto) 7.54 K/uL Lymphocytes # (Auto) 0.56 K/uL Monocytes # (Auto) 1.02 K/uL Eosinophils # (Auto) 0.03 K/uL Basophils # (Auto) 0.01 K/uL RDW Standard Deviation 46.2 fL RDW Coefficient of Variation 15.0 % Immature Granulocyte % (Auto) 2.3 % Immature Granulocyte # (Auto) 0.22 K/uL Prothrombin Time 14.9 SECONDS Prothromb Time International Ratio 1.4 Activated Partial Thromboplast Time 36.6 SECONDS Partial Thromboplastin Ratio 1.4 Sodium Level 140 mmol/L Potassium Level 4.5 mmol/L Chloride Level 115 mmol/L Carbon Dioxide Level 14 mmol/L Anion Gap 11.0 mmol/L Blood Urea Nitrogen 50 mg/dl Creatinine 2.75 mg/dl Est Creatinine Clear Calc Drug Dose 22.9 ml/min Estimated GFR () 25.4 Estimated GFR (Non- 21.9 BUN/Creatinine Ratio 18.1 Random Glucose 83 mg/dl Calcium Level 8.1 mg/dl Magnesium Level 1.7 mg/dl Total Bilirubin 0.4 mg/dl Direct Bilirubin 0.2 mg/dl Aspartate Amino Transf (AST/SGOT) 16 U/L Alanine Aminotransferase (ALT/SGPT) 17 U/L Alkaline Phosphatase 108 U/L Total Protein 5.2 gm/dl Albumin 1.7 gm/dl Random Vancomycin Level 20.7 mcg/ml
[2017-08-17 23:50] VITALS: BP 127/73; PULSE 77; TEMP 37.6; O2SAT 95
[2017-08-18] MEDS: ACETAMINOPHEN 325 MG TAB PO PRN (03:22)
[2017-08-18 03:28] VITALS: BP 125/71; PULSE 84; TEMP 37.5; O2SAT 90
[2017-08-18 06:30] LABS: HEMATOCRIT 26.5 % (42-52); MEAN CELL VOLUME 84.1 fL (80-100); MEAN CORPUSCULAR HEMOGLOBIN 28.6 pg (25-34); MEAN PLATELET VOLUME 9.1 fL (7.4-10.4); PLATELET COUNT 176 K/uL (130-400); RED CELL DISTRIBUTION WIDTH CV 14.8 % (11.5-14.5); RED CELL DISTRIBUTION WIDTH SD 45.4 fL (36.4-46.3); WHITE BLOOD COUNT 9.46 K/uL (4.8-10.8)
[2017-08-18 06:44] LABS: INR 1.3 (0.9-1.1); PTT PATIENT 32.5 SECONDS (21.0-31.0)
[2017-08-18 07:05] LABS: BASO % 0.1 %; BASO ABS # 0.01 K/uL (0-0.2); EOS % 0.1 %; EOS ABS # 0.01 K/uL (0-0.5); IG# 0.36 K/uL (0.00-0.02); LYMPH % 4.7 %; LYMPH ABS # 0.44 K/uL (1.2-3.4); MONO % 12.6 %; MONO ABS # 1.19 K/uL (0.11-0.59); NEUT % 78.7 %; NEUT ABS # 7.45 K/uL (1.4-6.5)
[2017-08-18 07:07] LABS: ALBUMIN 1.7 gm/dl (3.4-5.0); CALCIUM 7.9 mg/dl (8.5-10.1); CREATININE 2.79 mg/dl (0.60-1.40); POTASSIUM 4.5 mmol/L (3.5-5.1)
[2017-08-18 07:10] LABS: TOTAL PROTEIN 5.3 gm/dl (6.4-8.2)
[2017-08-18 07:31] VITALS: BP 127/71; PULSE 79; TEMP 37.3; O2SAT 96
[2017-08-18] MEDS ORDERED: LVQ750 PO (10:57)
--- NOTE | 2017-08-18 11:07 | Discharge Instructions ---
Discharge Instructions Date of Service Aug 18, 2017. Admission Reason for Admission: Sepsis, Right Lower Lobe Pheumonia, Kidney Stone Discharge Discharge Diagnosis / Problem: PNA, UTI Discharge Goals Goal(s): Decrease discomfort, Improve function, Increase independence, Improve disease control, Learn about illness, Diagnostic testing, Therapeutic intervention, Prevent Disease Progression Activity Recommendations Activity Limitations: resume your previous activity . Instructions / Follow-Up Instructions / Follow-Up New medications: Levaquin 750 mg every other day- begin this medication today (08/18) Resume all other regular home medications as prescribed FOLLOW-UPS: Please follow-up with your PCP within 5-7 days Please follow-up with Urology within 1 week Follow-up with INR 2-3 days Please follow-up/keep all of your subspecialty appointments Current Hospital Diet Patient's current hospital diet: Renal Diet Discharge Diet Recommended Diet: Renal Diet Procedures Procedures Performed: Cystoscopy, left ureteral stent insertion, left retrograde Pending Studies Studies pending at discharge: no Medical Emergencies . Who to Call and When: Medical Emergencies: If at any time you feel your situation is an emergency, please call 911 immediately. . Non-Emergent Contact Non-Emergency issues call your: Primary Care Provider Call Non-Emergent contact if: you have a fever, your pain is not controlled, your pain is worsening, your pain is unusual for you, your pain is concerning you, you have any medication questions . . "Provider Documentation" section prepared by Mansi Blanton. . VTE Core Measure Inpt VTE Proph given/why not?: Warfarin (Coumadin)
--- NOTE | 2017-08-18 11:07 | Discharge Summary ---
Discharge Summary Date of Service Aug 18, 2017. Discharge Summary Admission Date: Aug 14, 2017 at 19:17 Discharge Date: Aug 18, 2017 Discharge Disposition: Home Principal Diagnosis: sepsis, UTI, PNA Problems/Secondary Diagnoses: Septic shock secondary to right lower lobe pneumonia and UTI associated with ureteral stone NSVT Hypomagnesemia Left ureteral stone, 4mm with hydronephrosis s/p stent by Dr. 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 Small bilateral pleural effusions unchanged. Upper lungs are considered clear. No significant cardiac enlargement. IMPRESSION: Unchanged exam with no significant change compared to the prior study. The above report was generated using voice recognition software. It may contain grammatical, syntax or spelling errors. Electronically signed by: José Luis Chacon M.D. 08/16/2017 7:36 AM Dictated Date/Time: 08/16/2017 7:34 AM The status of this report is Signed. Draft = Not yet reviewed or approved by Radiologist. Signed = Reviewed and approved by Radiologist. RETROGRADE INCLUDES KUB CLINICAL HISTORY: 72 years-old Male presenting with LEFT STENT PLACEMENT. TECHNIQUE: 2 fluoroscopic spot image(s) obtained as part of an intraoperative procedure. COMPARISON: CT from 08/14/2017. FINDINGS/IMPRESSION: A guidewire was introduced into the left renal collecting system, which was opacified with contrast. The left renal collecting system is dilated. Subsequently, a left ureteral stent was placed. Surgical clips project over the left periaortic region. Please see surgical report for further details. Fluoroscopy dosage (mGy): Not available. Fluoroscopy time: 16 seconds. Number of fluoroscopic spot images: 2. Electronically signed by: Frederic Gil M.D. 08/15/2017 12:06 PM Dictated Date/Time: 08/15/2017 12:04 PM The status of this report is Signed. Draft = Not yet reviewed or approved by Radiologist. Signed = Reviewed and approved by Radiologist. CHEST ONE VIEW PORTABLE CLINICAL HISTORY: 72 years-old Male presenting with pna. TECHNIQUE: Portable upright AP view of the chest was obtained. COMPARISON: CT chest from 08/14/2017 and chest x-ray from 08/14/2017. FINDINGS: Cardiomediastinal silhouette normal. Persistent hazy right basilar opacity. Less extensive left basilar opacity. Moderate right and small left pleural effusions. No pneumothorax. Degenerative changes of the thoracic spine. Upper abdomen normal. IMPRESSION: 1. Persistent right lower lobe pneumonia. 2. Moderate right parapneumonic effusion. 3. Small left pleural effusion. 4. Developing left basilar consolidation is difficult to exclude though this most likely represents atelectasis. Electronically signed by: Frederic Gil M.D. 08/15/2017 7:12 AM Dictated Date/Time: 08/15/2017 7:11 AM The status of this report is Signed. Draft = Not yet reviewed or approved by Radiologist. Signed = Reviewed and approved by Radiologist. ABD/PELVIS WITHOUT FOR STONE CT DOSE: 1194.84 mGy.cm HISTORY: Flank pain. Sepsis. RIGHT flank/low back pain w/ h/o stones. current sepsis TECHNIQUE: Multiaxial CT images of the abdomen and pelvis were performed without the use of intravenous and oral contrast according to the standard department stone protocol. A dose lowering technique was utilized adhering to the principles of ALARA. COMPARISON STUDY: None. FINDINGS: Bibasilar pleural effusions. Consolidative infiltrate right base. Study is limited due to the absence of contrast enhancement. Configuration of the liver is unremarkable. Spleen is unremarkable. Moderate pancreatic atrophy. Right kidney is negative for hydronephrosis. There is a 5 mm calcification within the central left renal collecting system. This appears to be nonobstructing but is within the lateral aspects of the renal pelvis. Mild periureteral fat stranding considered nonspecific. 4 mm calcification distal left ureter 2 cm proximal to the left ureteral vesicle junction. Mild fullness left ureter as compared to the right. Several left surgical clips anterior to the left iliopsoas transaxial image 89 within the soft tissue pelvis. Bladder is distended. No free fluid within the pelvic cul-de-sac. Prior TUR defect of the prostate. The bowel pattern overall is nonobstructive. There is a right-sided ostomy. There is a trace amount of infiltrative change of the mesentery which is nonspecific. IMPRESSION: 1. Difficult scan to interpret due to the complete absence of contrast. 2. Infiltrate right lung base. 3. Bilateral pleural effusions. 4. Mild fullness left ureter and left renal pelvis apparently secondary to a partially obstructing calculus distal left ureter measuring 4 mm. 5. Additional nonobstructing 5 mm calcification within the peripheral left renal pelvis. 6. Distention of the bladder. 7. Right-sided ostomy. 8. To the absence of contrast enhancement, potential adenopathy within the retroperitoneal/mesenteric Region is difficult to define, if present. The above report was generated using voice recognition software. It may contain grammatical, syntax or spelling errors. Electronically signed by: José Luis Chacon M.D. 08/14/2017 10:46 PM Dictated Date/Time: 08/14/2017 10:41 PM The status of this report is Signed. Draft = Not yet reviewed or approved by Radiologist. Signed = Reviewed and approved by Radiologist. (CHEST) THORAX WITHOUT CT DOSE: HISTORY: Pneumonia RLL pna eval TECHNIQUE: Multiaxial CT images of the chest were performed without contrast. A dose lowering technique was utilized adhering to the principles of ALARA. COMPARISON: None. FINDINGS: Consolidative right lower lobe infiltrate. Bilateral pleural effusions. Minimal fibrotic change pulmonary apices. No significant parenchymal nodularity. IMPRESSION: 1. Consolidated right lower lobe infiltrate. 2. Bilateral pleural effusions. The above report was generated using voice recognition software. It may contain grammatical, syntax or spelling errors. Electronically signed by: José Luis Chacon M.D. 08/14/2017 10:39 PM Dictated Date/Time: 08/14/2017 10:38 PM The status of this report is Signed. Draft = Not yet reviewed or approved by Radiologist. Signed = Reviewed and approved by Radiologist. VENOUS DOPPLER LWR EXT BILA CLINICAL HISTORY: 72 years-old Male presenting with eval for extent of DVT, hip pain. TECHNIQUE: Real-time grayscale and color and spectral Doppler ultrasound imaging of the veins of the bilateral lower extremities was performed. Compression and augmentation were also utilized. COMPARISON: None. FINDINGS: Right: Common femoral vein: Patent. Greater saphenous vein: Patent. Deep femoral vein: Patent. Femoral vein: Patent. Popliteal vein: Patent. Calf veins: Patent. Left: Common femoral vein: Patent. Greater saphenous vein: Patent. Deep femoral vein: Patent. Femoral vein: Patent. Popliteal vein: Patent. Calf veins: Patent. Other: In the region of the right groin anterior to the right common femoral vein an ellipsoid hypoechoic vascular mass may represent an enlarged reactive lymph node. This measures 3.2 x 0.6 x 3.3 cm. This appears centered in the subcutaneous fat. IMPRESSION: 1. No evidence of deep venous thrombosis. 2. Possible reactive lymph node in the right inguinal region. Given the size of the presumed node, follow-up to resolution could be considered. Vascularity of this mass is not consistent with a hematoma or other avascular collection. Electronically signed by: Frederic Gil M.D. 08/15/2017 5:17 AM Dictated Date/Time: 08/15/2017 5:14 AM The status of this report is Signed. Draft = Not yet reviewed or approved by Radiologist. Signed = Reviewed and approved by Radiologist. CHEST ONE VIEW PORTABLE CLINICAL HISTORY: For Line Placement/Intubation tube position COMPARISON STUDY: No previous studies for comparison. FINDINGS: No tubes are identified. Infiltrate right base. Trace amount pleural fluid both lung bases. Upper lungs are clear. IMPRESSION: No tubes are identified. 2. Infiltrate right base.. 3. Small bilateral pleural effusions. The above report was generated using voice recognition software. It may contain grammatical, syntax or spelling errors. Electronically signed by: José Luis Chacon M.D. 08/14/2017 10:03 PM Dictated Date/Time: 08/14/2017 10:01 PM The status of this report is Signed. Draft = Not yet reviewed or approved by Radiologist. Signed = Reviewed and approved by Radiologist. DATE OF OPERATION: 08/15/2017 PROCEDURES PERFORMED: Cystoscopy, left retrograde and left stent placement. Consultations: Urology Critical care Medication Reconciliation New Medications: Levofloxacin (Levofloxacin) 750 Mg Tab 750 MG PO Q2D for 14 Days, #7 TABS Continued Medications: Pantoprazole (Protonix) 40 Mg Tab 40 MG PO DAILY, #30 TAB Sodium Bicarbonate (Sodium Bicarbonate) 650 Mg Tab 1 TAB PO DAILY Tamsulosin Hcl (Flomax) 0.4 Mg Cap 0.4 MG PO DAILY, CAP Warfarin Sod (Coumadin) 2.5 Mg Tab 2.5 MG PO THURSDAY, TAB Warfarin Sodium (Warfarin Sodium) 5 Mg Tab 1 TAB PO daily except thursday for 90 Days, TAB 1 Refill Referrals At Discharge Follow up Referrals: Family Practice Referral - Within 1 Week with José Luis Chen M.D. Urologist Referral - Within 1 Week with Jayme Scott M.D. Discharge Exam Review of Systems: Constitutional: No fever, No chills, No sweats, No weakness, No fatigue Eyes: No worsening of vision ENT: No hearing loss Respiratory: No cough, No shortness of breath, No hemoptysis Cardiovascular: No chest pain, No edema, No palpitations Abdomen: No pain, No nausea, No vomiting, No diarrhea, No constipation Musculoskeletal: No joint pain, No muscle pain, No swelling, No calf pain Neurologic: No weakness, No numbness/tingling Psychiatric: No depression symptoms, No anxiety Endocrine: No fatigue Hematologic / Lymphatic: No abnormal bleeding/bruising Integumentary: No rash, No itch, No new/changing skin lesions Physical Exam: General Appearance: no apparent distress Eyes: normal inspection, PERRL ENT: hearing grossly normal Neck: supple Respiratory/Chest: lungs clear, no respiratory distress, no accessory muscle use Cardiovascular: regular rate, rhythm Abdomen / GI: normal bowel sounds, non tender, soft, + pertinent finding (+ ostomy site with output; +bartlett in place ) Extremities: no calf tenderness, no pedal edema Neurologic/Psychiatric: alert, normal mood/affect, oriented x 3 Skin: normal color, warm/dry, no rash Hospital Course 72-year-old male with sepsis secondary to possible multiple sources including RIGHT lower lobe pneumonia as well as UTI. Initially hypotensive requiring vasoactive medications at [facility]. Septic shock secondary to right lower lobe pneumonia and UTI associated with ureteral stone- RESOLVED: - Tele for cardiac monitoring- episode of NSVT for 6 beat run on 08/17 - Hypotension- RESOLVED- treated w/ Levophed at [facility] - Treated w/ IV Zosyn and Levaquin- Levaquin PO Q2D (renally dosed) x2 weeks at discharge - MRSA negative- IV Vancomycin d/c'ed - BCx- NGTD Hypomagnesemia: Replaced w/ IV 1 gm Mag today Left ureteral stone, 4mm with hydronephrosis s/p stent by Dr. 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 Discharge Instructions Please refer to the electronic Patient Visit Report (Discharge Instructions) for additional information. Follow-Up Please follow-up with your PCP within 5-7 days Please follow-up with Urology within 1 week follow-up INR in 2-3 days Please follow-up/keep all of your subspecialty appointments Additional Copies To José Luis Chen M.D.
[2017-08-18] MEDS: ONDANSETRON INJ 2 MG/ML 2 ML VIAL IV PRN (11:53)
[2017-08-18 12:00] VITALS: BP 132/74; PULSE 74; TEMP 36.7; O2SAT 97
[2017-08-18 12:45] VITALS: BP 132/74; PULSE 74; TEMP 36.7; O2SAT 97
== END 2017-08-18 13:55 | disposition home or self-care (01) | DRG 871 ==
LOC: C.2T 19:17
PROVIDERS: ADMIT Hospitalist; ATTEND Internal Medicine Sports Medicine
PROC: 0T778DZ Dilation of Left Ureter with Intraluminal Device, Via Natural or Artificial Opening Endoscopic (ICD-10-PCS; principal; 2017-08-15 10:20)
DX: A41.9 Sepsis, unspecified organism (principal); J18.9 Pneumonia, unspecified organism; R65.21 Severe sepsis with septic shock; N18.4 Chronic kidney disease, stage 4 (severe); N39.0 Urinary tract infection, site not specified; D68.51 Activated protein C resistance; N17.9 Acute kidney failure, unspecified; N13.2 Hydronephrosis with renal and ureteral calculous obstruction; E83.42 Hypomagnesemia; I12.9 Hypertensive chronic kidney disease with stage 1 through stage 4 chronic kidney disease, or unspecified chronic kidney disease; M10.9 Gout, unspecified; E86.0 Dehydration; N31.9 Neuromuscular dysfunction of bladder, unspecified; Z66 Do not resuscitate; Z79.01 Long term (current) use of anticoagulants; Z79.899 Other long term (current) drug therapy; Z86.718 Personal history of other venous thrombosis and embolism; Z93.3 Colostomy status

== ENCOUNTER → 2017-09-15 | Outpatient (CLI) | payer OTHER ==
[~2017-09-15] MED LIST changes: +CHOL100010 PO; +CMD5 PO; -IRON PO; -METOPROLOL PO; +PANT40TA PO; +SODI650T8 PO; +TAMS0.4C38 PO; -TAMS0.4C59 PO; -VITAMIN C PO; -WARFARIN PO
--- NOTE | 2017-09-15 11:18 | DIAGNOSTIC IMAGING REPORT ---
KUB HISTORY: Follow-up study in a patient with nephrolithiasis. URETERIC STONE COMPARISON: , Retrograde urethrogram 08/15/2017, CT abdomen and pelvis 08/14/2017 FINDINGS: The bowel gas pattern is non-obstructive. There is no organomegaly. Left ureteral stent is in place which appears to be in satisfactory positioning. No definite nephrolithiasis or ureteral calculi are identified. Surgical suture material projects over the left upper and right midabdomen with scattered surgical clips noted. No pneumoperitoneum or pneumatosis. No fracture. Degenerative changes are seen throughout the spine and hips. IMPRESSION: Left ureteral stent in place without definite renal or ureteral calculi. Electronically signed by: Jonathan Martino M.D. 09/15/2017 11:17 AM Dictated Date/Time: 09/15/2017 11:14 AM
== END | disposition home or self-care (01) ==
LOC: C.RAD 10:48
PROVIDERS: ATTEND Urology
DX: N20.1 Calculus of ureter (principal)

== ENCOUNTER → 2017-09-18 | Outpatient (CLI) | payer OTHER | END | disposition home or self-care (01) | LOC: C.LABSPEC 14:46 | PROVIDERS: ATTEND Urology | DX: N20.0 Calculus of kidney (principal) ==

== ENCOUNTER → 2017-09-18 | Outpatient (CLI) | payer OTHER ==
[2017-09-18 12:25] LABS: BASO % 0.1 %; BASO ABS # 0.01 K/uL (0-0.2); EOS % 0.6 %; EOS ABS # 0.04 K/uL (0-0.5); HEMATOCRIT 28.3 % (42-52); HEMOGLOBIN 9.3 g/dL (14.0-18.0); IG# 0.01 K/uL (0.00-0.02); LYMPH % 9.8 %; LYMPH ABS # 0.71 K/uL (1.2-3.4); MEAN CELL VOLUME 87.1 fL (80-100); MEAN CORPUSCULAR HEMOGLOBIN 28.6 pg (25-34); MEAN CORPUSCULAR HGB CONC 32.9 g/dl (32-36); MEAN PLATELET VOLUME 8.9 fL (7.4-10.4); MONO % 9.2 %; MONO ABS # 0.67 K/uL (0.11-0.59); NEUT % 80.2 %; NEUT ABS # 5.83 K/uL (1.4-6.5); PLATELET COUNT 267 K/uL (130-400); RED CELL DISTRIBUTION WIDTH CV 14.2 % (11.5-14.5); RED CELL DISTRIBUTION WIDTH SD 45.3 fL (36.4-46.3); WHITE BLOOD COUNT 7.27 K/uL (4.8-10.8)
[2017-09-18 14:15] LABS: BLOOD UREA NITROGEN 39 mg/dl (7-18); CARBON DIOXIDE 18 mmol/L (21-32); CREATININE 2.87 mg/dl (0.60-1.40); GLUCOSE 86 mg/dl (70-99); POTASSIUM 5.1 mmol/L (3.5-5.1); SODIUM 135 mmol/L (136-145)
== END | disposition home or self-care (01) ==
LOC: C.LAB 10:37
PROVIDERS: ATTEND Urology
DX: N20.0 Calculus of kidney (principal)

== ENCOUNTER 2017-10-12 11:55 | Day surgery (SDC) | payer OTHER ==
[2017-10-07 10:52] VITALS: BMI 19.0
[~2017-10-12] VITALS: Ht 170.2 cm; Wt 55.5 kg
[~2017-10-12 11:55] MED LIST changes: +ATROPINE SULFATE 0.1 MG/ML 5ML SYR IV PRN; +CEPH500C PO; +EpHEDrine SULFATE INJ 50 MG/ML AMP IV PRN; +FENTANYL CITRATE INJ 50 MCG/1 ML 2 ML VIAL IV PRN; +MULT-190 PO; +ONDANSETRON INJ 2 MG/ML 2 ML VIAL IV PRN
[2017-10-12 12:23] VITALS: BP 116/65; PULSE 100; TEMP 36.9; O2SAT 99; Ht 170.2 cm; Wt 55.5 kg
[2017-10-12 12:42] LABS: PTT PATIENT 28.7 SECONDS (21.0-31.0)
--- NOTE | 2017-10-12 13:12 | History & Physical Bridge Note ---
H&P Re-Evaluation Bridge Note: I have examined the patient, reviewed the History & Physical and in the interval since the performance of the History & Physical I have noted the following changes of clinical significance: No changes noted Left Ureteroscopy, Laser Lithotripsy, Stone Basket extraction, Stent exchange, Retrograde pyelogram.
[2017-10-12] MEDS ORDERED: CIPR-255 PO (13:15)
[2017-10-12] MEDS ORDERED: OXYC7.5T65 PO (13:15)
--- NOTE | 2017-10-12 13:17 | Discharge Instructions ---
Discharge Instructions Date of Service Oct 12, 2017. Admission Reason for Admission: Calculus Of Kidney Discharge Discharge Diagnosis / Problem: Distal Left Stone Discharge Goals Goal(s): Decrease discomfort, Improve function Activity Recommendations Activity Limitations: resume your previous activity Lifting Limitations: gradually increase as tolerated Exercise/Sports Limitations: gradually increase as tolerated . Instructions / Follow-Up Instructions / Follow-Up May have pain or blood in urine. May have pelvic discomfort Call if any fevers or chills. Will place bartlett at end of case and maintain for 2-3 days for drainage and the remove and continue intermittent catheterization as previously scheduled. Current Hospital Diet Patient's current hospital diet: Discharge Diet Recommended Diet: Regular Diet Procedures Procedures Performed: Cystoscopy and left Ureteroscopy/laser lithotripsy Pending Studies Studies pending at discharge: no Medical Emergencies . Who to Call and When: Medical Emergencies: If at any time you feel your situation is an emergency, please call 911 immediately. . Non-Emergent Contact Non-Emergency issues call your: Primary Care Provider, Urologist Call Non-Emergent contact if: you have a fever, temperature is above 101, temperature is above 101.5, your pain is not controlled, your pain is worsening . . "Provider Documentation" section prepared by Domo Corona,. .
[2017-10-12] MEDS ORDERED: CEFTRIAXONE SOD INJ 1000 MG in DEXTROSE 5% 50ML IV SCH (13:30)
[2017-10-12] MEDS ORDERED: OXYCODONE/ACETAMINOPHEN 7.5-325 TAB PO PRN (13:30)
[2017-10-12] MEDS ORDERED: SODIUM CHLORIDE 0.9% 1000ML 1,000 ML IV SCH (13:30)
[2017-10-12] MEDS ORDERED: LIDOCAINE HCL 2% 2 ML VIAL (20MG/ML) ONE (13:51)
[2017-10-12] MEDS ORDERED: MIDAZOLAM HCL 1 MG/ML 2ML VIAL ONE (13:51)
[2017-10-12] MEDS ORDERED: DEXAMETHASONE SOD INJ 4 MG/ML VIAL ONE (13:51)
[2017-10-12] MEDS ORDERED: PROPOFOL IV EMULSION 10 MG/ML 20 ML VIAL IV ONE (13:51)
[2017-10-12] MEDS ORDERED: FENTANYL CITRATE INJ 50 MCG/1 ML 2 ML VIAL ONE (13:51)
[2017-10-12] MEDS ORDERED: ONDANSETRON INJ 2 MG/ML 2 ML VIAL ONE (13:51)
[2017-10-12] MEDS ORDERED: Cysto-Conray II 17.2% 250ML BOTTLE ONE (14:38)
[2017-10-12] MEDS ORDERED: PHENYLEPHRINE 100MCG/ML 5ML SYR ONE (14:57)
--- NOTE | 2017-10-12 15:44 | [facility] Operative Report ---
Operative Report Operative Date Oct 12, 2017. Pre-Operative Diagnosis Left Stone, ureter and kidney Post-Operative Diagnosis Same Procedure(s) Performed Cystoscopy and left Ureteroscopy with laser lithotripsy, stent exchange, retrograde pyelogram, and stone basket extraction Surgeon Cj Estimated Blood Loss Minimal Findings Left ureteral stone and renal stone. Specimens stone fragment Drains 6 Fr Multilength Anesthesia Type General Complication(s) none Disposition Recovery Room / PACU Indications Recurrent UTI and stone in left ureter. Risks and benefits discussed at length. Description of Procedure Patient was consented and brought back to the operating room. Patient was placed under anesthesia in the supine position and moved to the dorsal lithotomy position. Patient was prepped and draped in the regular sterile fashion. A time out was completed. A 30degree Cystoscope was placed into the bladder and the entire bladder was examined. The UO's were identified. The left stent was grasped and partially removed. A wire was then placed and the stent completely removed. A long rigid scope was selected and taken into the left UO. The stone was found in the mid ureter. The laser was selected and the stone was pulverized to dust and small fragments. A fragment was grasped and removed. The scope was taken to the proximal ureter. No other areas of concern were noted. A second wire was placed through the scope after and a retrograde pyelogram was completed. The flexible ureteroscope was placed over the wire and taken to the renal pelvis. Stone was appreciated. These were pulverized to dust and small fragments. The entire pelvis was found to be clear of large stone. The scope was slowly removed, keeping the safety wire in place. No areas of concern were noted. With the wire in place, a 6 Fr Multilength Double J stent was placed. It was confirmed with fluoroscopy. With the stent in place, the bladder was left partially full. The scope was removed and a 18 Fr Marinelli was placed. The patient was cleaned, aroused from anesthesia, and transferred to the pacu in stable condition having tolerated the procedure well with no complications. I was present and participated in all aspects of the procedure. The patient will be monitored in the PACU until transferred. I attest to the content of the Intraoperative Record and any orders documented therein. Any exceptions are noted below.
[2017-10-12] MEDS ORDERED: FLUC100T4 PO (15:56)
[2017-10-12] MEDS ORDERED: OXYC7.5T62 PO (15:56)
--- NOTE | 2017-10-12 16:31 | Anesthesiology Progress Note ---
Anesthesia Post Op Note Date & Time Oct 12, 2017 at 16:31 Vital Signs Pain Intensity: 0 Vital Signs Past 12 Hours Date Time Temp Pulse Resp B/P (MAP) Pulse Ox O2 Delivery O2 Flow Rate FiO2 10/12/17 16:25 77 16 124/70 100 Room Air 10/12/17 16:15 78 15 118/71 100 Oxymask 10 10/12/17 16:05 79 18 127/81 100 Oxymask 10 10/12/17 15:57 36.4 79 16 133/77 100 Oxymask 10 10/12/17 12:23 36.9 100 20 116/65 (82) 99 Room Air Notes Mental Status: alert / awake / arousable, participated in evaluation Pt Amnestic to Procedure: Yes Nausea / Vomiting: adequately controlled Pain: adequately controlled Airway Patency, RR, SpO2: stable & adequate BP & HR: stable & adequate Hydration State: stable & adequate Anesthetic Complications: no major complications apparent
--- NOTE | 2017-10-12 16:39 | DIAGNOSTIC IMAGING REPORT ---
RETROGRADE INCLUDES KUB CLINICAL HISTORY: 72 years-old Male presenting with LEFT LASER/LITHO AND STENT EXCHANGE. TECHNIQUE: 4 fluoroscopic spot image(s) obtained as part of an intraoperative procedure. COMPARISON: 09/15/2017 and 08/15/2017. FINDINGS/IMPRESSION: A guidewire was placed into the left renal collecting system. The left renal collecting system was opacified with contrast and noted to be dilated. Subsequently, a left ureteral stent was placed. Please see surgical report for further details. Dose area product (mGy.cm^2): 1777.2. Fluoroscopy time: 74.3 seconds. Number of fluoroscopic spot images: 4. Electronically signed by: Frederic Gil M.D. 10/12/2017 4:38 PM Dictated Date/Time: 10/12/2017 4:37 PM
[2017-10-12 16:45] VITALS: BP 130/68; PULSE 87; TEMP 36.5; O2SAT 100
[2017-10-12 17:16] VITALS: BP 119/63; PULSE 80; O2SAT 100
[2017-10-12 17:45] VITALS: BP 143/37; PULSE 83; TEMP 37.1; O2SAT 100
== END 2017-10-12 18:00 | disposition home or self-care (01) ==
LOC: C.ACU 11:55
PROVIDERS: ATTEND Urology
DX: N20.1 Calculus of ureter (principal); N20.0 Calculus of kidney; N18.4 Chronic kidney disease, stage 4 (severe); I12.9 Hypertensive chronic kidney disease with stage 1 through stage 4 chronic kidney disease, or unspecified chronic kidney disease; G47.33 Obstructive sleep apnea (adult) (pediatric); D68.51 Activated protein C resistance; Z86.718 Personal history of other venous thrombosis and embolism; Z85.72 Personal history of non-Hodgkin lymphomas; Z85.79 Personal history of other malignant neoplasms of lymphoid, hematopoietic and related tissues; Z98.890 Other specified postprocedural states; Z79.01 Long term (current) use of anticoagulants; Z79.899 Other long term (current) drug therapy; Z80.49 Family history of malignant neoplasm of other genital organs; Z84.1 Family history of disorders of kidney and ureter; Z80.42 Family history of malignant neoplasm of prostate; Z83.3 Family history of diabetes mellitus

== ENCOUNTER 2018-10-29 11:21 | Inpatient (IN) ==
[2018-10-29] MEDS ORDERED: SODIUM CHLORIDE 0.9% 1000ML 1,000 ML IV SCH ×2 (13:00→17:45)
[2018-10-29] MEDS ORDERED: cefTRIAXone SODIUM 1,000 MG/50 ML BAG IV STA (13:16)
[2018-10-29 13:28] LABS: Basophils # (auto) 0.02 K/uL (0-0.2); Basophils % (auto) 0.3 %; Eosinophils # (auto) 0.04 K/uL (0-0.5); Eosinophils % (auto) 0.5 %; Hematocrit (blood only) 24.5 % (42-52); Hemoglobin 8.1 g/dL (14.0-18.0); Immature Granulocytes # (auto) 0.04 K/uL (0.00-0.02); Immature Granulocytes % (auto) 0.5 %; Lymphocytes # (auto) 0.66 K/uL (1.2-3.4); Lymphocytes % (auto) 8.9 %; Mean Corpuscular Hgb Conc 33.1 g/dL (32-36); Mean Corpuscular Volume 86.9 fL (80-100); Mean Platelet Volume 9.1 fL (7.4-10.4); Monocytes # (auto) 0.96 K/uL (0.11-0.59); Neutrophils # (auto) 5.69 K/uL (1.4-6.5); Neutrophils % (auto) 76.8 %; Platelet Count 176 K/uL (130-400); RDW Coefficient of Variation 15.9 % (11.5-14.5); RDW Standard Deviation 51.7 fL (36.4-46.3); Red Blood Count 2.82 M/uL (4.7-6.1); White Blood Count 7.41 K/uL (4.8-10.8)
--- NOTE | 2018-10-29 13:45 | XRay Report ---
XR chest 1V portable CLINICAL HISTORY: weakness dyspnea COMPARISON STUDY: 08/16/2017 FINDINGS: Improved aeration right base compared to the prior study. Very small bilateral pleural effu sions. Lungs are considered clear. Mild stable cardia megaly. IMPRESSION: Mild stable cardia megaly. Small bilateral pleural effusions. The above report was generated using voice recognition software. It may contain grammatical, syntax or spelling errors. Electronically signed by: José Luis Chacon M.D. 10/29/2018 1:44 PM
[2018-10-29 13:54] LABS: Alanine Aminotransferase 12 U/L (12-78); Albumin Globulin Ratio 0.9 (0.9-2); Albumin Level 3.4 gm/dl (3.4-5.0); Alkaline Phosphatase 112 U/L (45-117); Aspartate Aminotransferase < 3 U/L (15-37); BUN Creatinine Ratio 11.3 (10-20); Bilirubin,Total 0.2 mg/dl (0.2-1); Blood Urea Nitrogen 80 mg/dl (7-18); Calcium 7.9 mg/dl (8.5-10.1); Carbon Dioxide 10 mmol/L (21-32); Chloride 120 mmol/L (98-107); Creatinine Clr Calc Pharmacy 7.2 ml/min; Est GFR (African American) 8.1; Globulin 3.7 gm/dl (2.5-4.0); Glucose 102 mg/dl (70-99); Magnesium 1.6 mg/dl (1.8-2.4); Potassium 4.6 mmol/L (3.5-5.1); Sodium 140 mmol/L (136-145); Total Protein 7.1 gm/dl (6.4-8.2)
[2018-10-29 14:06] LABS: Appearance Urine Turbid (Clear); Bacteria Urine Automated 3+ (Negative); Bilirubin Urine Negative (Negative); Blood Urine 2+ (Negative); Color Urine Yellow; Epithelial Cell Urine Auto >30 /lpf (0-5); Glucose Urine UA Negative (Negative); Ketones Urine Negative (Negative); Leukocyte Esterase Urine 3+ (Negative); Nitrite Urine Negative (Negative); Protein Urine 2+ (Negative); Specific Gravity Urine 1.018 (1.000-1.030); Urobilinogen Urine Negative (Negative); WBC Urine Automated >30 /hpf (0-5); pH Urine 5.5 (4.5-7.5)
[2018-10-29 14:22] LABS: Cast Urine Automated 0 /lpf (0-5)
[2018-10-29] MEDS ORDERED: MoRPHine SULFATE 2 MG/ML CARP IV STA (14:58)
[2018-10-29] MEDS ORDERED: ONDANSETRON INJ 2 MG/ML 2 ML VIAL IV PRN (15:44)
[2018-10-29] MEDS ORDERED: ACETAMINOPHEN 325 MG TAB PO PRN (15:44)
[2018-10-29] MEDS ORDERED: MAGNESIUM SULFATE / D5W 1 GM/100 ML BAG IV ONE (15:57)
--- NOTE | 2018-10-29 16:30 | History & Physical Report ---
Date of Service October 29, 2018 Assessment & Plan (1) Acute kidney injury superimposed on chronic kidney disease: (2) Neurogenic bladder: (3) UTI (urinary tract infection): - Admit to med surg - Urology consult for hx of recurrent UTIs - hx of kleb pneumonia which was giron sensitive, so will start on ceftriaxone IV, await culture and sensitivity - Cr. = 7.05 and BUN = 80, trend am prp - Continue IVF with 125 ml/hr x 1 day - Nephrology consulted - Straight cath prn, bladder scans Q6H prn, pt self caths at home 2x per day at home. - CT abd from [facility] with patient - does not show acute nephrolithiasis. Can consider in house scan, but for now will order renal ultrasound to [facility]. - Analgesia with IV morphine sulfate 1 mg Q2H prn. (4) History of resection of large bowel: - 2010, s/p c diff infection and requiring bowel resection. (5) Hx of Clostridium difficile infection: - Will check c. diff culture with hx of c. diff and pt noticing loose stool x 3 days and foul smell. - Contact precautions (6) Sarcopenia: - Albumin depressed, BMI of 19, weight loss and muscle wasting. - Will order boost in between meals and late evening before bed. Pt does not use boost at home but was encouraged to do so. (7) DVT prophylaxis: teds, scds, heparin subq (8) Hypomagnesemia: - Mag 1.6 upon admission, will replace with IV now. Follow am labs. History of Present Illness Primary Care Provider: José Luis Chen MD This is a 73 yo M with PMHx recurrent UTI, neurogenic bladder with self cath 2x daily, CKD stage III, hypomagnesemia, hx of DVT and Factor V Leiden, hx of c d iff and s/p large bowel colonic resection with ostomy, who presents with acute kidney injury and UTI. The patient's is present with him at bedside. The patient notes that he started to feel worse about 1 week ago, noticed that he has been increasingly fatigued with basic ADLs. He admits for the past 3 days he has had more weakness, and noticed very cloudy, purulent mucoid-like discharge during self caths, and reports having a left-sided flank pain which is intermittent, as well as foul-smelling urine. He denies any hematuria. Last evening patient's pain was so bad that he presented to [facility]. They are a CT of the abdomen/pelvis was obtained without any acute findings. It was noted that his creatinine was elevated at 7.7, and BUN= 83. He was administered IV pain medication there and prescribed an antibiotic at the time of discharge, however did not receive an IV antibiotic in their ER. 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 The patient called urology office, as he follows with Dr. Corona as an outpatient, this morning for follow up and he was referred to our ER. Patient is still experiencing L flank pain without any movement which is waxing and waning. His urine is unchanged. e notes he has had multiple recurrent UTIs in the past associated with kidney stones. Patient's diet has recently been diminished although he is drinking fluids. Patient notes that his ostomy outs have also been more liquid compared to normal in the past 3 days, and thinks that there is a foul smell associated with this as well. Pt denies any fevers, chills or sweats. Cr. 7.05, BUN =80, WBC = 7.41. Allergies Allergy/AdvReac Type Severity Reaction Status Date / Time adhesive AdvReac Mild SKIN Verified 10/29/18 12:29 IRRITATION - SEE COMMENTS BELOW Home Medications Home Medications Medication Instructions Recorded Confirmed Type acetaminophen [Tylenol Extra 500 mg PO Q6H PRN 10/29/18 10/29/18 History Strength] ascorbic acid (vitamin C) [Vitamin 0 mg PO BID 10/29/18 10/29/18 History C] multivitamin 1 tab PO BID 10/29/18 10/29/18 History pantoprazole 40 mg PO QAM 10/29/18 10/29/18 History peg [id number] [Eye 1 drp OPB QAM 10/29/18 10/29/18 History Drop Tears] timolol maleate 1 drp OPL BID 10/29/18 10/29/18 History vit A,C and O-ocvyfj-noddwbqy 1 tab PO QAM 10/29/18 10/29/18 History [Ocuvite with Lutein] Past Med/Surg History Medical History Acute kidney injury superimposed on chronic kidney disease (Acute) Sepsis (Acute) Colostomy in place Kidney stones Family History Other Family history non-contributory Social History Preferred Language: [place] Communication Ability: Effective 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 Beliefs That Will Affect Care: None marital status: Current Living Situation: Spouse current occupational status: retired Other Information That Helps Us Care for You: No Feels Safe at Home: Yes Safety Concerns: Feels Safe At This Time Smoking Status: Never smoker Hx Alcohol Use: No Hx Substance Use: No Review of Systems Review of Systems: Constitutional: No fever, sweats or chills, + weight loss Eyes: No diplopia, no worsening or blurred vision ENT: normal hearing, no trouble swallowing Respiratory: No cough, sputum, dyspnea at rest or on exertion Cardiovascular: No chest pain, tightness or palpitations Abdomen: No pain, + nausea associated with pain, no vomiting, + loose stools, no constipation Musculoskeletal: + R shoulder pain, no other joint pain, calf pain, swelling Neurologic: + generalized weakness, no numbness/tingling or balance problems Psychiatric: No anxiety or depression Skin: No rash or itch Physical Exam Physical Exam: General: awake, alert, no apparent distress, + fatigued, + thin Head: Normocephalic, atraumatic ENT: PERRL, EOMI, no pharyngeal exudate, mucous membranes moist Chest: Clear to auscultation, on room air, no adventitious breath sounds Cardiac: Regular rate and rhythm, no murmur, no JVD, normal peripheral pulses, good capillary refill Abdominal: NABS x 4 quadrants, soft, nondistended, + Ostomy in RLQ with light brown loose outs, + tender to palpation in the LUQ close to rib cage, no rebound or guarding Extremities: Normal inspection, no peripheral edema or erythema, calfs nontender to palpation Psych: Normal mood, slightly flat affect Neuro: AAO x 3, strength intact bilaterally and related 5/5, no motor deficits, speech is clear, no peripheral sensory deficits Constitutional: + thin; no acute distress Eyes: normal visual chase by confrontation and + anicteric sclerae Neck: normal visual inspection and trachea midline Respiratory: normal respiratory effort, lungs clear to auscultation Cardiovascular: Rate/Rhythm: regular rate and regular rhythm Gastrointestinal (Abdomen): Inspection/Auscultation: abdomen not distended Percussion/Palpation: + abdomen tender and abdomen soft Musculoskeletal: Head/Neck/Chest: normocephalic and head atraumatic Neg for peripheral LE edema, + pedal pulses Skin: no rashes, warm and dry Neurologic: awake; not confused Speech / Cognition: normal speech Psychiatric: A+Ox3, euthymic affect Lymphatic: Exam as done by Angelique Bonilla DO Results & Data Vital Signs (Past 12 Hours) Vital Signs Temp Pulse Pulse Resp BP Pulse Ox 10/29/18 16:00 99 H 24 127/63 97 10/29/18 15:40 107 H 21 145/65 H 97 10/29/18 14:50 108 H 22 114/85 10/29/18 13:36 93 H 18 10/29/18 11:35 36.8 C 94 H 19 123/63 99 ECG Additional Comments: 29-OCT-2018 13:03:10 [facility]-EDSTAT ROUTINE RETRIEVAL Normal sinus rhythm Incomplete right bundle branch block Borderline ECG When compared with ECG of 16-AUG-2017 06:23, No significant change was found 25mm/s 10mm/mV 150Hz 9.0.8 12SL 241 HD CHET: 12 Referred by: REFERRED SELF Unconfirmed Vent. rate 87 BPM HI interval 178 ms QRS duration 104 ms QT/QTc 380/457 ms P-R-T axes 85 73 72 Code Status & VTE Plan Code Status Full code - no heroic measures Supervising Physician Co-Signing Physician Notes Pt seen and examined by me. Denies chest pain or SOB. Pt has been feeling unwell and with worsening flank pain. He was seen in the ED at [facility] last night. CTAP was neg. Dx with UTI and sent home with bactrim. Cr was elevated at that time as well. Agree with HPI/ROS as noted by PA See above for my exam in PE section Agree with plan as outlined above UTI with hx of neurogenic bladder and self cath, recurrent UTI DEBBIE noted, K is WNL Abx, renal US (1) UTI (urinary tract infection) Hematuria presence: without hematuria Urinary tract infection type: site unspecified Qualified Code(s): N39.0 - Urinary tract infection, site not specified
[2018-10-29] MEDS ORDERED: ARTIFICIAL TEARS OPB PRN (17:00)
--- NOTE | 2018-10-29 17:55 | Nephrology Consultation ---
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 blanket maker -- Clinical history over the past several months includes anorexia, weight loss, progressive weakness, loss of muscle mass - possible symptoms of advanced CKD -- Concern regarding progression of advanced kidney dysfunction to point of CAR STOWER was discussed with the patient and his -- He has reservations regarding dialysis -- Education provided regarding hemodialysis -- Thankfully there is no emergent indication for dialysis -- Electrolytes are acceptable -- Non contrast CT from [facility] did not demonstrate stones or obstruction per report -- Renal US pending -- UA/microscopy consistent with UTI -- Volume status hypovolemic -- NAGMA + AGMA consistent with renal dysfunction and GI losses per history -- Will continue IVF with D5+150 NaHCO3 @ 125 ml/hr -- Document I/O's (bladder scan q 3 hours and straight cath PRN) -- Repeat metabolic profile tomorrow AM -- Medications are currently appropriately dosed for kidney function (2) Neurogenic bladder: -- Bladder scan q 3 hours -- Straight cath PRN (3) UTI (urinary tract infection): -- Empiric ceftriaxone started -- Culture pending History of Present Illness Reason for Consultation: Acute kidney injury Requesting Physician: Angelique Bonilla DO Attending Physician: Angelique Bonilla DO History of Present Illness Mr. Trevon Bhatt is a 73 year-old with advanced chronic kidney disease. He presented to the ER at [facility] today following evaluation in the urology clinic. The patient was referred for admission by his urologist (Dr. Corona). He was admitted with acute kidney injury and profound weakness. Serum creatinine measured at 7.7 mg/dL. Mr. Bhatt initially presented to [facility] ER yesterday for evaluation of left flank pain. Flank pain started two days ago. The pain was fairly sudden. He describes some LUQ tenderness associated with the pain. The symptoms are similar to prior UTI. A non contrast CT of the abdomen and pelvis was obtained. The patient's provided a copy of the report for review. The left kidney is atrophic by, similar to prior studies. No remarkable abnormal findings were noted on the right. The patient was provided IV antibiotics and discharged with a prescription for Bactrim. He has not yet filled this prescription. Laboratory studies demonstrated a serum creatinine of 7.7 mg/dL. [facility] does not have a more recent serum creatinine from > 1 year ago for comparison. Urine culture results not currently available for review. The patient reports taking a few ibuprofen in the past week. No more than 1 tablet daily. Serum creatinine in September [address] [facility] records was 2.85 mg/dL. Mr. Bhatt does not follow with a honeycomb blanket maker. His PCP is Dr. Chen. He cannot recall Dr. Chen expressing concerns about kidney function. Approximately 4 years ago, the patient was admitted to [facility] with urosepsis complicated by DEBBIE. He saw a honeycomb blanket maker at that time and was encouraged to consider dialysis. Mr. Bhatt has significant reservations about dialysis. He stated that he may refuse the treatment if his kidney function were to worsen. He also stated that he is not ready to and may consider if the treatment is necessary. The patient was seen and evaluated this afternoon with his at the bedside. Medical history includes a history of Non-Hodgkin Lymphoma initially diagnosed in the 1970s. Initial treatment involved radiation followed by chemotherapy. The cancer is described as involving the biliary system with complications including obstructive jaundice requiring surgery. Mr. Bhatt had an elevated PSA and BPH. He describes complications following TURP resulting in neurogenic bladder. He straight caths twice daily. He has suffered from recurrent UTI. He underwent colectomy following complications from C diff colitis. Allergies Allergy/AdvReac Type Severity Reaction Status Date / Time adhesive AdvReac Mild SKIN Verified 10/29/18 12:29 IRRITATION - SEE COMMENTS BELOW Home Medications Home Medications Medication Instructions Recorded Confirmed Type acetaminophen [Tylenol Extra 500 mg PO Q6H PRN 10/29/18 10/29/18 History Strength] ascorbic acid (vitamin C) [Vitamin 0 mg PO BID 10/29/18 10/29/18 History C] multivitamin 1 tab PO BID 10/29/18 10/29/18 History pantoprazole 40 mg PO QAM 10/29/18 10/29/18 History peg [id number] [Eye 1 drp OPB QAM 10/29/18 10/29/18 History Drop Tears] timolol maleate 1 drp OPL BID 10/29/18 10/29/18 History vit A,C and Q-xmyfql-yvmlpuuj 1 tab PO QAM 10/29/18 10/29/18 History [Ocuvite with Lutein] Patient History Medical History Acute kidney injury superimposed on chronic kidney disease (Acute) Sepsis (Acute) Colostomy in place Kidney stones Family History Other Family history non-contributory Social History Preferred Language: Telugu Communication Ability: Effective 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 Beliefs That Will Affect Care: None marital status: Current Living Situation: Spouse current occupational status: retired Other Information That Helps Us Care for You: No Feels Safe at Home: Yes Safety Concerns: Feels Safe At This Time Smoking Status: Never smoker Hx Alcohol Use: No Hx Substance Use: No Review of Systems Review of Systems: All systems reviewed & are unremarkable except as noted in HPI & below Physical Exam Constitutional: + thin and + frail appearing; no acute distress Eyes: no scleral abnormality and no corneal abnormality ENMT: Mouth: + dry oral mucous membranes; no oral mucosal abnormality Neck: trachea midline, no thyromegaly Respiratory: normal respiratory effort; no respiratory distress Auscultation: lungs clear to auscultation bilaterally Cardiovascular: Rate/Rhythm: regular rate Heart Sounds: normal S1 and normal S2; no murmur Vessels: no JVD Extremities: no edema Gastrointestinal (Abdomen): Percussion/Palpation: abdomen soft; abdomen nontender and no guarding colostomy Musculoskeletal: Extremities: no cyanosis and no clubbing Skin: normal turgor; no rashes Neurologic: Motor/Sensory: no tremor and no asterixis Psychiatric: Affect: euthymic affect Results & Data Vital Signs (Past 12 Hours) Vital Signs Temp Pulse Pulse Resp BP BP Pulse Ox 10/29/18 17:29 36.5 C 107 H 20 143/65 H 98 10/29/18 16:00 99 H 24 127/63 97 10/29/18 15:40 107 H 21 145/65 H 97 10/29/18 14:50 108 H 22 114/85 10/29/18 13:36 93 H 18 10/29/18 11:35 36.8 C 94 H 19 123/63 99 Laboratory Results Laboratory Results - last 24 hr 10/29/18 10/29/18 10/29/18 13:12 13:12 13:30 WBC 7.41 RBC 2.82 L Hgb 8.1 L Hct 24.5 L MCV 86.9 MCH 28.7 MCHC 33.1 RDW Std Deviation 51.7 H RDW Coeff of Rubi 15.9 H Plt Count 176 MPV 9.1 Immature Gran % (Auto) 0.5 Neut % (Auto) 76.8 Lymph % (Auto) 8.9 [place] % (Auto) 13.0 Eos % (Auto) 0.5 Baso % (Auto) 0.3 Immature Gran # (Auto) 0.04 H Neut # (Auto) 5.69 Lymph # (Auto) 0.66 L [place] # (Auto) 0.96 H Eos # (Auto) 0.04 Baso # (Auto) 0.02 Sodium 140 Potassium 4.6 Chloride 120 H Carbon Dioxide 10 L Anion Gap 10.0 BUN 80 H Creatinine 7.05 H* Est Cr Clr Drug Dosing 7.2 Est GFR ( Amer) 8.1 Est GFR (Non-Af Amer) 7.0 BUN/Creatinine Ratio 11.3 Glucose 102 H Calcium 7.9 L Magnesium 1.6 L Total Bilirubin 0.2 AST < 3 L ALT 12 Alkaline Phosphatase 112 Total Protein 7.1 Albumin 3.4 Globulin 3.7 Albumin/Globulin Ratio 0.9 Lipase 122 TSH 1.260 Urine Color Yellow Urine Appearance Turbid H Urine pH 5.5 Ur Specific [place] 1.018 Urine Protein 2+ H Urine Glucose (UA) Negative Urine Ketones Negative Urine Blood 2+ H Urine Nitrite Negative Urine Bilirubin Negative Urine Urobilinogen Negative Ur Leukocyte Esterase 3+ H Urine WBC (Auto) >30 H Urine RBC (Auto) 10-30 H U Hyaline Cast (Auto) 0 U Epithel Cells (Auto) >30 H Urine Bacteria (Auto) 3+ H Urine Yeast Not Reportable (1) UTI (urinary tract infection) Hematuria presence: without hematuria Urinary tract infection type: site unspecified Qualified Code(s): N39.0 - Urinary tract infection, site not specified
--- NOTE | 2018-10-29 18:47 | Ultrasound Report ---
US renal/blad retro comp HISTORY: 73 years-old Male Assess for obstruction, DEBBIE on CKD acute on chronic kidney disease COMPARISON: Renal ultrasound 07/02/2018, CT abdomen and pelvis 11/11/2017 TECHNIQUE: Multiple real-time sonographic images of the kidneys and bladder were obtained assessing g rayscale appearance and color flow FINDINGS: The right kidney measures 10.9 x 4.7 x 6.0 cm and demonstrates no renal calculi, hydronephrosis or ftich spicious mass lesions. Mildly increased echogenicity of the right kidney. There is a 1 cm cyst noted about the superior pole right kidney. Left kidney measures 10.4 x 6.2 x 6.3 cm there is trace diffuse cortical thinning with increased pare nchymal echogenicity. 9 mm cyst of the superior pole left kidney. There is a 5 mm nonobstructing calc ulus of the lower pole left kidney. No hydronephrosis. Urinary bladder is unremarkable. Ureteral jets not identified.. IMPRESSION: 1. 5 mm nonobstructing calculus of the lower pole left kidney. No hydronephrosis. 2. Increased echogenicity of the bilateral kidneys suggests chronic medical renal disease. 3. Diffuse parenchymal thinning throughout the left kidney redemonstrated. The above report was generated using voice recognition software. It may contain grammatical, syntax o r spelling errors. Electronically signed by: Jonathan Martino M.D. 10/29/2018 6:46 PM
[2018-10-29] MEDS: LACTOBACILLUS ACIDOPHILUS (FLORANEX) TAB PO SCH ×2 (18:55→21:42)
[2018-10-29] MEDS: MoRPHine SULFATE 2 MG/ML CARP IV PRN (19:00)
[2018-10-29] MEDS: SODIUM BICARBONATE 8.4% 150 MEQ in DEXTROSE 5% 1,000 ML IV SCH (19:46)
--- NOTE | 2018-10-29 20:28 | Emergency Department Note ---
Entered by Sera Patton acting as a scribe for Haven Valdez MD History of Present Illness General Chief complaint: Urinary Symptoms Stated complaint: RENAL FAILURE Source: patient History of Present Illness Onset (ago): week(s) 1 Location: back Pain Consistency: + other (episode) Maximum Pain Intensity: 7 Quality: + other (urinary symptoms) Associated symptoms: + other (back soreness, right shoulder pain) The patient is a 73 year old male who presents to the Emergency Room with complaints of an episode of urinary symptoms starting a week ago. The patient states that he has been having a sore pain in his back where his kidneys are. He states that the pain became worse yesterday so he went to [facility]. He states that they ran all sorts of tests and found that his kidney function is decreased and he has a bladder infection. He reports that he doesnt know why they didnt keep him, but they told him to call Dr. Corona- Urology today and update them on his lab work. He states that when he called this morning, they told him to come to the ED. He notes that he has a history of kidney problems. He states that he has a history of kidney stones and has had intermittent kidney failure. He reports that once when he was here it was a 2 and once at [place] it was a 5, but he doesnt want to go on dialysis. He states that he was told that he didnt need to right at that point. He notes that he also has difficulty urinating so he self-catheterizes. The patient complains of a stinging and burning pain in his right shoulder, but is unsure what it is. Home Medications Home Medications Medication Instructions Recorded Confirmed Type acetaminophen [Tylenol Extra 500 mg PO Q6H PRN 10/29/18 10/29/18 History Strength] ascorbic acid (vitamin C) [Vitamin 0 mg PO BID 10/29/18 10/29/18 History C] multivitamin 1 tab PO BID 10/29/18 10/29/18 History pantoprazole 40 mg PO QAM 10/29/18 10/29/18 History peg [id number] [Eye 1 drp OPB QAM 10/29/18 10/29/18 History Drop Tears] timolol maleate 1 drp OPL BID 10/29/18 10/29/18 History vit A,C and [id number]-dnzruq-cpadrxuv 1 tab PO QAM 10/29/18 10/29/18 History [Ocuvite with Lutein] Allergies Allergy/AdvReac Type Severity Reaction Status Date / Time adhesive AdvReac Mild SKIN Verified 10/29/18 12:29 IRRITATION - SEE COMMENTS BELOW Past Med/Surg History Medical History Acute kidney injury superimposed on chronic kidney disease (Acute) Sepsis (Acute) Colostomy in place Kidney stones Neurogenic bladder Surgical History S/P ureteral stent placement Family History Other Family history non-contributory Social History Preferred Language: Serbian Communication Ability: Effective Vaccine Specialist Required: Yes Beliefs That Will Affect Care: None marital status: Current Living Situation: Spouse current occupational status: retired Other Information That Helps Us Care for You: No Feels Safe at Home: Yes Safety Concerns: Feels Safe At This Time Smoking Status: Never smoker Hx Alcohol Use: No Hx Substance Use: No Review of Systems See HPI for pertinent positives & negatives. and A total of 10 systems reviewed and were otherwise negative Physical Exam Vital Signs Vital Signs - 24 hr 10/31/18 12:22 10/31/18 12:25 10/31/18 12:40 Temperature 36.7 C 36.7 C 36.8 C Temperature Source Oral Oral Oral Pulse Rate 70 Pulse Rate [Left] 70 73 Respiratory Rate 14 18 16 Respiratory Effort / Characteristics Respiratory Depth Normal Respiratory Pattern Blood Pressure 97/52 L Blood Pressure [Left Arm] 107/64 Blood Pressure [Right Arm] 97/52 L Blood Pressure Mean 67 Blood Pressure Mean [Left Arm] 78 Blood Pressure Mean [Right Arm] 67 Blood Pressure Position Sitting Blood Pressure Position [Left Arm] Sitting Blood Pressure Position [Right Arm] Sitting Pulse Oximetry 96 96 96 Oxygen Delivery Method Room Air Room Air 10/31/18 12:43 10/31/18 12:55 10/31/18 12:58 Temperature 36.8 C 36.8 C 36.6 C Temperature Source Oral Oral Oral Pulse Rate 69 71 Pulse Rate [Left] 72 Respiratory Rate 16 18 16 Respiratory Effort / Characteristics Respiratory Depth Respiratory Pattern Blood Pressure 109/64 118/68 Blood Pressure [Left Arm] 106/62 Blood Pressure [Right Arm] Blood Pressure Mean 79 84 Blood Pressure Mean [Left Arm] 76 Blood Pressure Mean [Right Arm] Blood Pressure Position Blood Pressure Position [Left Arm] Lying Blood Pressure Position [Right Arm] Pulse Oximetry 96 97 97 Oxygen Delivery Method Room Air 10/31/18 13:28 10/31/18 15:23 10/31/18 16:00 Temperature 36.6 C 36.7 C Temperature Source Oral Oral Pulse Rate 70 Pulse Rate [Left] 70 Respiratory Rate 16 18 Respiratory Effort / Characteristics Respiratory Depth Respiratory Pattern Blood Pressure 118/68 Blood Pressure [Left Arm] 104/61 Blood Pressure [Right Arm] Blood Pressure Mean 84 Blood Pressure Mean [Left Arm] 75 Blood Pressure Mean [Right Arm] Blood Pressure Position Blood Pressure Position [Left Arm] Lying Blood Pressure Position [Right Arm] Pulse Oximetry 97 97 Oxygen Delivery Method Room Air Room Air 10/31/18 19:28 10/31/18 23:00 11/01/18 00:00 Temperature 37.3 C Temperature Source Oral Pulse Rate Pulse Rate [Left] 70 91 H Respiratory Rate 18 20 Respiratory Effort / Characteristics Non-Labored Spontaneous Respiratory Depth Normal Respiratory Pattern Regular Blood Pressure Blood Pressure [Left Arm] 137/69 124/69 Blood Pressure [Right Arm] Blood Pressure Mean Blood Pressure Mean [Left Arm] 91 87 Blood Pressure Mean [Right Arm] Blood Pressure Position Blood Pressure Position [Left Arm] Sitting Lying Blood Pressure Position [Right Arm] Pulse Oximetry 97 94 Oxygen Delivery Method Room Air Room Air Room Air 11/01/18 07:28 Temperature 37.0 C Temperature Source Oral Pulse Rate Pulse Rate [Left] 95 H Respiratory Rate 17 Respiratory Effort / Characteristics Respiratory Depth Respiratory Pattern Blood Pressure Blood Pressure [Left Arm] 102/62 Blood Pressure [Right Arm] Blood Pressure Mean Blood Pressure Mean [Left Arm] 75 Blood Pressure Mean [Right Arm] Blood Pressure Position Blood Pressure Position [Left Arm] Lying Blood Pressure Position [Right Arm] Pulse Oximetry 94 Oxygen Delivery Method Room Air Vital signs reviewed. General: Chronically ill-appearing, thin, in no significant distress. HEENT: No scleral icterus, PERRLA, neck supple. Atraumatic. Cardiovascular: Regular rate and rhythm, no extra sounds. Pulmonary: Clear to auscultation bilaterally, normal work of breathing. Abdomen: Soft, nontender, nondistended, positive bowel sounds. Musculoskeletal: Atraumatic, no peripheral edema. Neurologic: Patient awake alert and oriented x 3 Skin: Warm, dry, no rash Course 1248: The patient was evaluated in room C8. A complete history and physical exam was performed. 1531: I discussed the patient's case with Dr. Walker Hospitalist. She will evaluate the patient for further management. 1541: I reevaluated the patient and updated him on his test results. I discussed the treatment plan with him. He verbally agrees and understands. Consultations Consultation #1: I discussed the patient's case with Dr. Walker Hospitalist. She will evaluate the patient for further management. Time: 15:31 Administered Medications Acetaminophen (Tylenol) 650 mg PO Q4H PRN PRN Reason: Moderate Pain Stop: 11/28/18 15:43 Last Admin: 10/31/18 07:53 Dose: 650 mg Documented by: [id number] Heparin Sodium (Porcine) (Heparin Sodium (Porcine)) 5,000 units SQ Q12 [facility] Stop: 11/28/18 20:59 Last Admin: 11/01/18 08:06 Dose: 5,000 units Documented by: [id number] Cosigned by: [id number] Admin: 10/31/18 21:09 Dose: 5,000 units Documented by: [id number] Cosigned by: [id number] Admin: 10/31/18 07:53 Dose: 5,000 units Documented by: [id number] Cosigned by: [id number] Admin: 10/30/18 20:10 Dose: 5,000 units Documented by: [id number] Cosigned by: [id number] Admin: 10/30/18 08:01 Dose: 5,000 units Documented by: [id number] Cosigned by: [id number] Admin: 10/29/18 21:45 Dose: 5,000 units Documented by: [id number] Cosigned by: [id number] Ceftriaxone Sodium 1,000 mg/ (Dextrose) 50 mls @ 100 mls/hr IV DAILY@1200 [facility] DEL CARMEN; Protocol Stop: 11/08/18 11:59 Last Infusion: 10/31/18 14:13 Dose: 100 mls/hr Documented by: [id number] Admin: 10/31/18 13:43 Dose: 100 mls/hr Documented by: [id number] Infusion: 10/30/18 13:18 Dose: 100 mls/hr Documented by: [id number] Admin: 10/30/18 12:48 Dose: 100 mls/hr Documented by: [id number] Sodium Chloride (Nss 1000ml) 1,000 mls @ 80 mls/hr IV .[id number] REPLACED BY [facility] Stop: 12/01/18 08:44 Last Admin: 11/01/18 09:14 Dose: 80 mls/hr Documented by: [id number] Lactobacillus Acidophilus (Floranex) 4 tab PO QIDM REPLACED BY [facility] Stop: 11/28/18 17:59 Last Admin: 11/01/18 08:05 Dose: 4 tab Documented by: [id number] Admin: 10/31/18 21:01 Dose: 4 tab Documented by: [id number] Admin: 10/31/18 16:47 Dose: 4 tab Documented by: [id number] Admin: 10/31/18 13:42 Dose: 4 tab Documented by: [id number] Admin: 10/31/18 07:52 Dose: 4 tab Documented by: [id number] Admin: 10/30/18 20:08 Dose: 4 tab Documented by: [id number] Admin: 10/30/18 16:30 Dose: 4 tab Documented by: [id number] Admin: 10/30/18 11:59 Dose: 4 tab Documented by: [id number] Admin: 10/30/18 08:00 Dose: 4 tab Documented by: [id number] Admin: 10/29/18 21:42 Dose: 4 tab Documented by: [id number] Admin: 10/29/18 18:55 Dose: 4 tab Documented by: [id number] Morphine Sulfate (Morphine Sulfate) 1 mg IV Q2H PRN PRN Reason: Pain Stop: 11/12/18 17:16 Last Admin: 10/31/18 23:45 Dose: 1 mg Documented by: [id number] Admin: 10/31/18 21:24 Dose: 1 mg Documented by: [id number] Admin: 10/29/18 19:00 Dose: 1 mg Documented by: [id number] Multivitamins (Multivitamin Tab) 1 tab PO QAM REPLACED BY [facility] Stop: 11/29/18 08:59 Last Admin: 11/01/18 08:06 Dose: 1 tab Documented by: [id number] Admin: 10/31/18 07:52 Dose: 1 tab Documented by: [id number] Admin: 10/30/18 08:00 Dose: 1 tab Documented by: [id number] Multivitamins/Minerals (Multivitamin W/ Minerals Tab) 1 tab PO QAM [facility] Stop: 11/29/18 08:59 Last Admin: 11/01/18 08:05 Dose: 1 tab Documented by: [id number] Admin: 10/31/18 07:52 Dose: 1 tab Documented by: [id number] Admin: 10/30/18 08:00 Dose: 1 tab Documented by: [id number] Ondansetron HCl (Zofran) 4 mg IV Q4H PRN PRN Reason: Nausea And Vomiting Stop: 11/28/18 15:43 Last Admin: 10/31/18 07:53 Dose: 4 mg Documented by: [id number] Pantoprazole Sodium (Protonix) 40 mg PO QAM REPLACED BY [facility] Stop: 11/29/18 08:59 Last Admin: 11/01/18 08:06 Dose: 40 mg Documented by: [id number] Admin: 10/31/18 07:52 Dose: 40 mg Documented by: [id number] Admin: 10/30/18 08:00 Dose: 40 mg Documented by: [id number] Timolol Maleate (Timoptic 0.25% Oph) 1 drops OPL BID [facility] Stop: 11/28/18 20:59 Last Admin: 10/31/18 21:02 Dose: 1 drops Documented by: [id number] Admin: 10/31/18 07:52 Dose: 1 drops Documented by: [id number] Admin: 10/30/18 20:09 Dose: 1 drops Documented by: [id number] Admin: 10/30/18 08:03 Dose: 1 drops Documented by: [id number] Admin: 10/29/18 21:43 Dose: 1 drops Documented by: [id number] Discontinued Medications Al Hydrox/Mg Hydrox/Simethicone (Maalox) 30 ml PO NOW STA Stop: 10/31/18 20:02 Last Admin: 10/31/18 21:01 Dose: 30 ml Documented by: [id number] Epoetin Gregg (Procrit) 20,000 units SQ 1230 [facility] Stop: 10/31/18 18:00 Last Admin: 10/31/18 14:06 Dose: 20,000 units Documented by: [id number] Sodium Chloride (Nss 1000ml) 1,000 mls @ 125 mls/hr IV .Q8H [facility] Stop: 10/29/18 20:59 Last Infusion: 10/29/18 18:13 Dose: 0 mls/hr Documented by: [id number] Admin: 10/29/18 13:38 Dose: 125 mls/hr Documented by: [id number] Ceftriaxone Sodium (Rocephin) 1,000 mg in 50 mls @ 100 mls/hr IV NOW STA Stop: 10/29/18 13:45 Last Infusion: 10/29/18 14:47 Dose: 0 mls/hr Documented by: [id number] Admin: 10/29/18 13:38 Dose: 100 mls/hr Documented by: [id number] Magnesium Sulfate/Dextrose (Magnesium Sulfate / D5w) 1 gm in 100 mls @ 100 mls/hr IV ONE ONE Stop: 10/29/18 16:56 Last Infusion: 10/29/18 19:01 Dose: 0 mls/hr Documented by: [id number] Admin: 10/29/18 17:43 Dose: 100 mls/hr Documented by: [id number] Sodium Chloride (Nss 1000ml) 1,000 mls @ 125 mls/hr IV .Q8H [facility] Stop: 10/30/18 17:16 Last Infusion: 10/29/18 19:30 Dose: 0 mls/hr Documented by: [id number] Admin: 10/29/18 17:43 Dose: 125 mls/hr Documented by: [id number] Sodium Bicarbonate 150 meq/ (Dextrose) 1,150 mls @ 125 mls/hr IV .Q9H12M [facility] Stop: 11/28/18 18:44 Last Infusion: 11/01/18 09:16 Dose: 0 mls/hr Documented by: [id number] Admin: 11/01/18 02:40 Dose: 125 mls/hr Documented by: [id number] Infusion: 11/01/18 02:40 Dose: 125 mls/hr Documented by: [id number] Admin: 10/31/18 17:59 Dose: 125 mls/hr Documented by: [id number] Infusion: 10/31/18 14:47 Dose: 125 mls/hr Documented by: [id number] Infusion: 10/31/18 14:26 Dose: 125 mls/hr Documented by: [id number] Admin: 10/31/18 07:56 Dose: Not Given Documented by: [id number] Admin: 10/31/18 05:35 Dose: 125 mls/hr Documented by: [id number] Infusion: 10/31/18 05:14 Dose: 125 mls/hr Documented by: [id number] Admin: 10/30/18 20:02 Dose: 125 mls/hr Documented by: [id number] Infusion: 10/30/18 20:02 Dose: 125 mls/hr Documented by: [id number] Infusion: 10/30/18 16:30 Dose: 125 mls/hr Documented by: [id number] Infusion: 10/30/18 10:15 Dose: 0 mls/hr Documented by: [id number] Admin: 10/30/18 04:41 Dose: 125 mls/hr Documented by: [id number] Infusion: 10/30/18 04:41 Dose: 125 mls/hr Documented by: [id number] Admin: 10/29/18 19:46 Dose: 125 mls/hr Documented by: [id number] Magnesium Sulfate/Dextrose (Magnesium Sulfate / D5w) 1 gm in 100 mls @ 100 mls/hr IV Q1H [facility] Stop: 10/31/18 12:59 Last Infusion: 10/31/18 12:59 Dose: 100 mls/hr Documented by: [id number] Admin: 10/31/18 11:59 Dose: 100 mls/hr Documented by: [id number] Infusion: 10/31/18 11:56 Dose: 100 mls/hr Documented by: [id number] Admin: 10/31/18 10:56 Dose: 100 mls/hr Documented by: [id number] Magnesium Oxide (Mag-Ox) 400 mg PO Q12H [facility] Stop: 10/30/18 20:01 Last Admin: 10/30/18 20:09 Dose: 400 mg Documented by: [id number] Admin: 10/30/18 11:59 Dose: 400 mg Documented by: [id number] Morphine Sulfate (Morphine Sulfate) 2 mg IV NOW STA Stop: 10/29/18 14:59 Last Admin: 10/29/18 15:37 Dose: 2 mg Documented by: [id number] Potassium Chloride (Klor-Con M20) 20 meq PO Q2H [facility] Stop: 10/31/18 10:31 Last Admin: 10/31/18 13:42 Dose: 20 meq Documented by: [id number] Admin: 10/31/18 10:20 Dose: 20 meq Documented by: [id number] Potassium Chloride (Klor-Con M20) 20 meq PO NOW STA Stop: 11/01/18 08:54 Last Admin: 11/01/18 09:14 Dose: 20 meq Documented by: [id number] Simethicone (Mylicon) 80 mg PO NOW ONE Stop: 10/31/18 20:02 Last Admin: 10/31/18 20:25 Dose: 80 mg Documented by: [id number] Medical Decision Making Differential Diagnosis Differential Diagnosis includes but is not limited to dehydration, stroke, anemia, hypoglycemia, hyponatremia, hypernatremia, urinary tract infection, pneumonia, bronchitis, sepsis, gastroenteritis, additional abdominal pathology, metabolic abnormalities and infections. Medical Records Attestation: I reviewed the patient's medical records. Home Medications Current Medication List: was personally reviewed by me Laboratory Data Attestation: I reviewed the patient's lab results. Result diagrams: 11/01/18 07:05 11/01/18 07:05 Lab Results 10/29/18 10/29/18 10/29/18 Range/Units 13:12 13:12 13:30 WBC 7.41 (4.8-10.8) K/uL RBC 2.82 L (4.7-6.1) M/uL Hgb 8.1 L (14.0-18.0) g/dL Hct 24.5 L (42-52) % MCV 86.9 (80-100) fL MCH 28.7 (25-34) pg MCHC 33.1 (32-36) g/dL RDW Std Deviation 51.7 H (36.4-46.3) fL RDW Coeff of Rubi 15.9 H (11.5-14.5) % Plt Count 176 (130-400) K/uL MPV 9.1 (7.4-10.4) fL Immature Gran % (Auto) 0.5 % Neut % (Auto) 76.8 % Lymph % (Auto) 8.9 % Hemphill % (Auto) 13.0 % Eos % (Auto) 0.5 % Baso % (Auto) 0.3 % Immature Gran # (Auto) 0.04 H (0.00-0.02) K/uL Neut # (Auto) 5.69 (1.4-6.5) K/uL Lymph # (Auto) 0.66 L (1.2-3.4) K/uL Hemphill # (Auto) 0.96 H (0.11-0.59) K/uL Eos # (Auto) 0.04 (0-0.5) K/uL Baso # (Auto) 0.02 (0-0.2) K/uL Sodium 140 (136-145) mmol/L Potassium 4.6 (3.5-5.1) mmol/L Chloride 120 H (98-107) mmol/L Carbon Dioxide 10 L (21-32) mmol/L Anion Gap 10.0 (3-11) BUN 80 H (7-18) mg/dl Creatinine 7.05 H* (0.6-1.4) mg/dl Est Cr Clr Drug Dosing 7.2 ml/min Est GFR ( Amer) 8.1 Est GFR (Non-Af Amer) 7.0 BUN/Creatinine Ratio 11.3 (10-20) Glucose 102 H (70-99) mg/dl Calcium 7.9 L (8.5-10.1) mg/dl Phosphorus (2.5-4.9) mg/dl Magnesium 1.6 L (1.8-2.4) mg/dl Iron (35-175) mcg/dl TIBC (250-450) mcg/dl Transferrin (200-360) mg/dl Transferrin % Sat (20-50) % Ferritin (8-388) ng/ml Total Bilirubin 0.2 (0.2-1) mg/dl AST < 3 L (15-37) U/L ALT 12 (12-78) U/L Alkaline Phosphatase 112 (45-117) U/L Total Protein 7.1 (6.4-8.2) gm/dl Albumin 3.4 (3.4-5.0) gm/dl Globulin 3.7 (2.5-4.0) gm/dl Albumin/Globulin Ratio 0.9 (0.9-2) Lipase 122 (73-393) U/L TSH 1.260 (0.300-4.500) uIu/ml Urine Color Yellow Urine Appearance Turbid H (Clear) Urine pH 5.5 (4.5-7.5) Ur Specific Dickinson 1.018 (1.000-1.030) Urine Protein 2+ H (Negative) Urine Glucose (UA) Negative (Negative) Urine Ketones Negative (Negative) Urine Blood 2+ H (Negative) Urine Nitrite Negative (Negative) Urine Bilirubin Negative (Negative) Urine Urobilinogen Negative (Negative) Ur Leukocyte Esterase 3+ H (Negative) Urine WBC (Auto) >30 H (0-5) /hpf Urine RBC (Auto) 10-30 H (0-4) /hpf U Hyaline Cast (Auto) 0 (0-5) /lpf U Epithel Cells (Auto) >30 H (0-5) /lpf Urine Bacteria (Auto) 3+ H (Negative) Urine Yeast Not Reportable Stool Occult Bld Scrn (Negative) Stl C. diff Tox B Gene (Neg) Blood Type Blood Type Recheck Antibody Screen Crossmatch 10/30/18 10/30/18 10/30/18 Range/Units 05:15 05:15 09:00 WBC 5.36 (4.8-10.8) K/uL RBC 2.20 L (4.7-6.1) M/uL Hgb 6.5 L* (14.0-18.0) g/dL Hct 18.8 L* (42-52) % MCV 85.5 (80-100) fL MCH 29.5 (25-34) pg MCHC 34.6 (32-36) g/dL RDW Std Deviation 48.7 H (36.4-46.3) fL RDW Coeff of Rubi 15.5 H (11.5-14.5) % Plt Count 155 (130-400) K/uL MPV 9.2 (7.4-10.4) fL Immature Gran % (Auto) % Neut % (Auto) % Lymph % (Auto) % Hemphill % (Auto) % Eos % (Auto) % Baso % (Auto) % Immature Gran # (Auto) (0.00-0.02) K/uL Neut # (Auto) (1.4-6.5) K/uL Lymph # (Auto) (1.2-3.4) K/uL Hemphill # (Auto) (0.11-0.59) K/uL Eos # (Auto) (0-0.5) K/uL Baso # (Auto) (0-0.2) K/uL Sodium 141 (136-145) mmol/L Potassium 3.7 D (3.5-5.1) mmol/L Chloride 117 H (98-107) mmol/L Carbon Dioxide 15 L (21-32) mmol/L Anion Gap 9.0 (3-11) BUN 72 H (7-18) mg/dl Creatinine 6.70 H* D (0.6-1.4) mg/dl Est Cr Clr Drug Dosing 8.2 ml/min Est GFR ( Amer) 8.6 Est GFR (Non-Af Amer) 7.4 BUN/Creatinine Ratio 10.8 (10-20) Glucose 96 (70-99) mg/dl Calcium 7.2 L (8.5-10.1) mg/dl Phosphorus 5.5 H (2.5-4.9) mg/dl Magnesium 1.5 L (1.8-2.4) mg/dl Iron 61 (35-175) mcg/dl TIBC 142 L (250-450) mcg/dl Transferrin 122 L (200-360) mg/dl Transferrin % Sat 35 (20-50) % Ferritin 167.7 (8-388) ng/ml Total Bilirubin 0.3 (0.2-1) mg/dl AST 6 L (15-37) U/L ALT 10 L (12-78) U/L Alkaline Phosphatase 84 (45-117) U/L Total Protein 5.3 L D (6.4-8.2) gm/dl Albumin 2.5 L (3.4-5.0) gm/dl Globulin 2.8 (2.5-4.0) gm/dl Albumin/Globulin Ratio 0.9 (0.9-2) Lipase (73-393) U/L TSH (0.300-4.500) uIu/ml Urine Color Urine Appearance (Clear) Urine pH (4.5-7.5) Ur Specific Dickinson (1.000-1.030) Urine Protein (Negative) Urine Glucose (UA) (Negative) Urine Ketones (Negative) Urine Blood (Negative) Urine Nitrite (Negative) Urine Bilirubin (Negative) Urine Urobilinogen (Negative) Ur Leukocyte Esterase (Negative) Urine WBC (Auto) (0-5) /hpf Urine RBC (Auto) (0-4) /hpf U Hyaline Cast (Auto) (0-5) /lpf U Epithel Cells (Auto) (0-5) /lpf Urine Bacteria (Auto) (Negative) Urine Yeast Stool Occult Bld Scrn (Negative) Stl C. diff Tox B Gene (Neg) Blood Type O Positive Blood Type Recheck Antibody Screen NEGATIVE Crossmatch See Detail 0410/30/18 10/31/18 Range/Units 13:28 17:56 06:30 WBC 6.04 (4.8-10.8) K/uL RBC 2.56 L (4.7-6.1) M/uL Hgb 7.8 L 7.8 L 7.4 L (14.0-18.0) g/dL Hct 23.0 L 22.5 L 21.4 L (42-52) % MCV 83.6 (80-100) fL MCH 28.9 (25-34) pg MCHC 34.6 (32-36) g/dL RDW Std Deviation 46.7 H (36.4-46.3) fL RDW Coeff of Rubi 15.2 H (11.5-14.5) % Plt Count 163 (130-400) K/uL MPV 8.7 (7.4-10.4) fL Immature Gran % (Auto) % Neut % (Auto) % Lymph % (Auto) % Hemphill % (Auto) % Eos % (Auto) % Baso % (Auto) % Immature Gran # (Auto) (0.00-0.02) K/uL Neut # (Auto) (1.4-6.5) K/uL Lymph # (Auto) (1.2-3.4) K/uL Hemphill # (Auto) (0.11-0.59) K/uL Eos # (Auto) (0-0.5) K/uL Baso # (Auto) (0-0.2) K/uL Sodium (136-145) mmol/L Potassium (3.5-5.1) mmol/L Chloride (98-107) mmol/L Carbon Dioxide (21-32) mmol/L Anion Gap (3-11) BUN (7-18) mg/dl Creatinine (0.6-1.4) mg/dl Est Cr Clr Drug Dosing ml/min Est GFR ( Amer) Est GFR (Non-Af Amer) BUN/Creatinine Ratio (10-20) Glucose (70-99) mg/dl Calcium (8.5-10.1) mg/dl Phosphorus (2.5-4.9) mg/dl Magnesium (1.8-2.4) mg/dl Iron (35-175) mcg/dl TIBC (250-450) mcg/dl Transferrin (200-360) mg/dl Transferrin % Sat (20-50) % Ferritin (8-388) ng/ml Total Bilirubin (0.2-1) mg/dl AST (15-37) U/L ALT (12-78) U/L Alkaline Phosphatase (45-117) U/L Total Protein (6.4-8.2) gm/dl Albumin (3.4-5.0) gm/dl Globulin (2.5-4.0) gm/dl Albumin/Globulin Ratio (0.9-2) Lipase (73-393) U/L TSH (0.300-4.500) uIu/ml Urine Color Urine Appearance (Clear) Urine pH (4.5-7.5) Ur Specific Dickinson (1.000-1.030) Urine Protein (Negative) Urine Glucose (UA) (Negative) Urine Ketones (Negative) Urine Blood (Negative) Urine Nitrite (Negative) Urine Bilirubin (Negative) Urine Urobilinogen (Negative) Ur Leukocyte Esterase (Negative) Urine WBC (Auto) (0-5) /hpf Urine RBC (Auto) (0-4) /hpf U Hyaline Cast (Auto) (0-5) /lpf U Epithel Cells (Auto) (0-5) /lpf Urine Bacteria (Auto) (Negative) Urine Yeast Stool Occult Bld Scrn (Negative) Stl C. diff Tox B Gene (Neg) Blood Type Blood Type Recheck Antibody Screen Crossmatch 10/31/18 10/31/18 10/31/18 Range/Units 06:30 06:30 06:30 WBC (4.8-10.8) K/uL RBC (4.7-6.1) M/uL Hgb (14.0-18.0) g/dL Hct (42-52) % MCV (80-100) fL MCH (25-34) pg MCHC (32-36) g/dL RDW Std Deviation (36.4-46.3) fL RDW Coeff of Rubi (11.5-14.5) % Plt Count (130-400) K/uL MPV (7.4-10.4) fL Immature Gran % (Auto) % Neut % (Auto) % Lymph % (Auto) % Hemphill % (Auto) % Eos % (Auto) % Baso % (Auto) % Immature Gran # (Auto) (0.00-0.02) K/uL Neut # (Auto) (1.4-6.5) K/uL Lymph # (Auto) (1.2-3.4) K/uL Hemphill # (Auto) (0.11-0.59) K/uL Eos # (Auto) (0-0.5) K/uL Baso # (Auto) (0-0.2) K/uL Sodium 139 (136-145) mmol/L Potassium 3.4 L (3.5-5.1) mmol/L Chloride 107 (98-107) mmol/L Carbon Dioxide 24 (21-32) mmol/L Anion Gap 8.0 (3-11) BUN 68 H (7-18) mg/dl Creatinine 6.31 H* D (0.6-1.4) mg/dl Est Cr Clr Drug Dosing 8.7 ml/min Est GFR ( Amer) 9.2 Est GFR (Non-Af Amer) 8.0 BUN/Creatinine Ratio 10.7 (10-20) Glucose 113 H (70-99) mg/dl Calcium 6.8 L (8.5-10.1) mg/dl Phosphorus 4.9 (2.5-4.9) mg/dl Magnesium 1.4 L (1.8-2.4) mg/dl Iron (35-175) mcg/dl TIBC (250-450) mcg/dl Transferrin (200-360) mg/dl Transferrin % Sat (20-50) % Ferritin (8-388) ng/ml Total Bilirubin 0.2 (0.2-1) mg/dl AST 6 L (15-37) U/L ALT 10 L (12-78) U/L Alkaline Phosphatase 78 (45-117) U/L Total Protein 5.3 L (6.4-8.2) gm/dl Albumin 2.4 L (3.4-5.0) gm/dl Globulin 2.9 (2.5-4.0) gm/dl Albumin/Globulin Ratio 0.8 L (0.9-2) Lipase (73-393) U/L TSH (0.300-4.500) uIu/ml Urine Color Urine Appearance (Clear) Urine pH (4.5-7.5) Ur Specific Dickinson (1.000-1.030) Urine Protein (Negative) Urine Glucose (UA) (Negative) Urine Ketones (Negative) Urine Blood (Negative) Urine Nitrite (Negative) Urine Bilirubin (Negative) Urine Urobilinogen (Negative) Ur Leukocyte Esterase (Negative) Urine WBC (Auto) (0-5) /hpf Urine RBC (Auto) (0-4) /hpf U Hyaline Cast (Auto) (0-5) /lpf U Epithel Cells (Auto) (0-5) /lpf Urine Bacteria (Auto) (Negative) Urine Yeast Stool Occult Bld Scrn (Negative) Stl C. diff Tox B Gene (Neg) Blood Type Blood Type Recheck O Positive Antibody Screen Crossmatch 10/31/18 10/31/18 10/31/18 Range/Units 07:40 10:22 15:36 WBC (4.8-10.8) K/uL RBC (4.7-6.1) M/uL Hgb 9.4 L (14.0-18.0) g/dL Hct 27.0 L (42-52) % MCV (80-100) fL MCH (25-34) pg MCHC (32-36) g/dL RDW Std Deviation (36.4-46.3) fL RDW Coeff of Rubi (11.5-14.5) % Plt Count (130-400) K/uL MPV (7.4-10.4) fL Immature Gran % (Auto) % Neut % (Auto) % Lymph % (Auto) % Hemphill % (Auto) % Eos % (Auto) % Baso % (Auto) % Immature Gran # (Auto) (0.00-0.02) K/uL Neut # (Auto) (1.4-6.5) K/uL Lymph # (Auto) (1.2-3.4) K/uL Hemphill # (Auto) (0.11-0.59) K/uL Eos # (Auto) (0-0.5) K/uL Baso # (Auto) (0-0.2) K/uL Sodium (136-145) mmol/L Potassium (3.5-5.1) mmol/L Chloride (98-107) mmol/L Carbon Dioxide (21-32) mmol/L Anion Gap (3-11) BUN (7-18) mg/dl Creatinine (0.6-1.4) mg/dl Est Cr Clr Drug Dosing ml/min Est GFR ( Amer) Est GFR (Non-Af Amer) BUN/Creatinine Ratio (10-20) Glucose (70-99) mg/dl Calcium (8.5-10.1) mg/dl Phosphorus (2.5-4.9) mg/dl Magnesium (1.8-2.4) mg/dl Iron (35-175) mcg/dl TIBC (250-450) mcg/dl Transferrin (200-360) mg/dl Transferrin % Sat (20-50) % Ferritin (8-388) ng/ml Total Bilirubin (0.2-1) mg/dl AST (15-37) U/L ALT (12-78) U/L Alkaline Phosphatase (45-117) U/L Total Protein (6.4-8.2) gm/dl Albumin (3.4-5.0) gm/dl Globulin (2.5-4.0) gm/dl Albumin/Globulin Ratio (0.9-2) Lipase (73-393) U/L TSH (0.300-4.500) uIu/ml Urine Color Urine Appearance (Clear) Urine pH (4.5-7.5) Ur Specific [place] (1.000-1.030) Urine Protein (Negative) Urine Glucose (UA) (Negative) Urine Ketones (Negative) Urine Blood (Negative) Urine Nitrite (Negative) Urine Bilirubin (Negative) Urine Urobilinogen (Negative) Ur Leukocyte Esterase (Negative) Urine WBC (Auto) (0-5) /hpf Urine RBC (Auto) (0-4) /hpf U Hyaline Cast (Auto) (0-5) /lpf U Epithel Cells (Auto) (0-5) /lpf Urine Bacteria (Auto) (Negative) Urine Yeast Stool Occult Bld Scrn Negative (Negative) Stl C. diff Tox B Gene Negative Cdiff Gene (Neg) Blood Type Blood Type Recheck Antibody Screen Crossmatch 11/01/18 11/01/18 11/01/18 Range/Units 07:05 07:05 07:05 WBC 8.76 (4.8-10.8) K/uL RBC 3.14 L (4.7-6.1) M/uL Hgb 9.3 L (14.0-18.0) g/dL Hct 26.5 L (42-52) % MCV 84.4 (80-100) fL MCH 29.6 (25-34) pg MCHC 35.1 (32-36) g/dL RDW Std Deviation 46.3 (36.4-46.3) fL RDW Coeff of Rubi 14.9 H (11.5-14.5) % Plt Count 173 (130-400) K/uL MPV 9.0 (7.4-10.4) fL Immature Gran % (Auto) % Neut % (Auto) % Lymph % (Auto) % [place] % (Auto) % Eos % (Auto) % Baso % (Auto) % Immature Gran # (Auto) (0.00-0.02) K/uL Neut # (Auto) (1.4-6.5) K/uL Lymph # (Auto) (1.2-3.4) K/uL [place] # (Auto) (0.11-0.59) K/uL Eos # (Auto) (0-0.5) K/uL Baso # (Auto) (0-0.2) K/uL Sodium 138 (136-145) mmol/L Potassium 3.6 (3.5-5.1) mmol/L Chloride 101 (98-107) mmol/L Carbon Dioxide 28 (21-32) mmol/L Anion Gap 10.0 (3-11) BUN 56 H (7-18) mg/dl Creatinine 5.60 H* D (0.6-1.4) mg/dl Est Cr Clr Drug Dosing 9.9 ml/min Est GFR ( Amer) 10.7 Est GFR (Non-Af Amer) 9.2 BUN/Creatinine Ratio 10.1 (10-20) Glucose 138 H (70-99) mg/dl Calcium 7.0 L (8.5-10.1) mg/dl Phosphorus 3.9 D (2.5-4.9) mg/dl Magnesium 1.9 (1.8-2.4) mg/dl Iron (35-175) mcg/dl TIBC (250-450) mcg/dl Transferrin (200-360) mg/dl Transferrin % Sat (20-50) % Ferritin (8-388) ng/ml Total Bilirubin 0.2 (0.2-1) mg/dl AST 12 L (15-37) U/L ALT 10 L (12-78) U/L Alkaline Phosphatase 77 (45-117) U/L Total Protein 5.4 L (6.4-8.2) gm/dl Albumin 2.2 L (3.4-5.0) gm/dl Globulin 3.2 (2.5-4.0) gm/dl Albumin/Globulin Ratio 0.7 L (0.9-2) Lipase (73-393) U/L TSH (0.300-4.500) uIu/ml Urine Color Urine Appearance (Clear) Urine pH (4.5-7.5) Ur Specific [place] (1.000-1.030) Urine Protein (Negative) Urine Glucose (UA) (Negative) Urine Ketones (Negative) Urine Blood (Negative) Urine Nitrite (Negative) Urine Bilirubin (Negative) Urine Urobilinogen (Negative) Ur Leukocyte Esterase (Negative) Urine WBC (Auto) (0-5) /hpf Urine RBC (Auto) (0-4) /hpf U Hyaline Cast (Auto) (0-5) /lpf U Epithel Cells (Auto) (0-5) /lpf Urine Bacteria (Auto) (Negative) Urine Yeast Stool Occult Bld Scrn (Negative) Stl C. diff Tox B Gene (Neg) Blood Type Blood Type Recheck Antibody Screen Crossmatch Imaging Data Radiologist's Impression: Radiology results as stated below per my review and the radiologist's interpretation: XR chest 1V portable CLINICAL HISTORY: weakness dyspnea COMPARISON STUDY: 08/16/2017 FINDINGS: Improved aeration right base compared to the prior study. Very small bilateral pleural effusions. Lungs are considered clear. Mild stable cardia megaly. IMPRESSION: Mild stable cardiomegaly. Small bilateral pleural effusions. The above report was generated using voice recognition software. It may contain grammatical, syntax or spelling errors. Electronically signed by: José Luis Chacon M.D. 10/29/2018 1:44 PM ECG Data Attestation: I personally reviewed and interpreted this ECG as follows: Indication: back/shoulder pain Rate (beats per minute): 87 Rhythm: normal sinus Findings: + RBBB (incomplete); no PAC, no PVC, no ST depression, no ST elevation, no acute ischemic change and no ectopy Blood Pressure Blood Pressure Findings: Normal blood pressure Blood Pressure Disposition: did not require urgent referral MDM Narrative This pt was evaluated and appeared to be in no distress. IV access was obtained and lab work was drawn. Pt was placed on the monitoring manager. IVF were initiated. Lab work reveals a creat of 7.07 and UA is positive. K is stable. EKG is reassuring. Pt was given IV ceftriaxone after consultation with alex ashford. He had recent NONCONTRAST CT at OSH that was negative for obstruction per report with . The hospitalist Dr Bonilla was consulted and will evaluate for further management. Impression & Plan Acute renal failure, UTI (urinary tract infection) Discharge Plan Visit Data *Final* Discharge Date/Time: 10/29/18 16:30 Chief Complaint: Urinary Symptoms Stated Complaint: RENAL FAILURE ED Provider: Haven Valdez Discharge Problem: Acute renal failure, UTI (urinary tract infection) Patient Disposition: Admitted As Inpatient Discharge Instructions Interventions: ED Discharge Assessment Last Done: 10/29/18 16:30 Discharge Problem: Acute renal failure Qualifiers: Acute renal failure type: unspecified Qualified Code(s): N17.9 - Acute kidney failure, unspecified UTI (urinary tract infection) Qualifiers: Urinary tract infection type: site unspecified Hematuria presence: without hematuria Qualified Code(s): N39.0 - Urinary tract infection, site not specified The scribe's documentation has been prepared under my direction and personally reviewed by me in its entirety. I confirm that the note above accurately reflects all work, treatment, procedures, and medical decision making performed by me.
[2018-10-29] MEDS: TIMOLOL MALEATE 0.25% OP SOLN 5 ML BTL OPL SCH (21:43)
[2018-10-29] MEDS: HEPARIN SOD 5,000 UNIT/0.5 ML VIAL SQ SCH (21:45)
[2018-10-30] MEDS: SODIUM BICARBONATE 8.4% 150 MEQ in DEXTROSE 5% 1,000 ML IV SCH ×2 (04:41→20:02)
[2018-10-30 06:01] LABS: Hematocrit (blood only) 18.8 % (42-52); Hemoglobin 6.5 g/dL (14.0-18.0); Mean Corpuscular Hgb Conc 34.6 g/dL (32-36); Mean Corpuscular Volume 85.5 fL (80-100); Mean Platelet Volume 9.2 fL (7.4-10.4); Platelet Count 155 K/uL (130-400); RDW Coefficient of Variation 15.5 % (11.5-14.5); RDW Standard Deviation 48.7 fL (36.4-46.3); White Blood Count 5.36 K/uL (4.8-10.8)
[2018-10-30 06:15] LABS: Albumin Globulin Ratio 0.9 (0.9-2); Albumin Level 2.5 gm/dl (3.4-5.0); BUN Creatinine Ratio 10.8 (10-20); Bilirubin,Total 0.3 mg/dl (0.2-1); Calcium 7.2 mg/dl (8.5-10.1); Creatinine Clr Calc Pharmacy 8.2 ml/min; Est GFR (African American) 8.6; Est GFR (Non-African American) 7.4; Ferritin 167.7 ng/ml (8-388); Globulin 2.8 gm/dl (2.5-4.0); Magnesium 1.5 mg/dl (1.8-2.4); Phosphorus 5.5 mg/dl (2.5-4.9); Potassium 3.7 mmol/L (3.5-5.1); Total Protein 5.3 gm/dl (6.4-8.2)
--- NOTE | 2018-10-30 07:00 | Family Medicine Progress Note ---
Date of Service October 30, 2018 Assessment & Plan (1) Acute kidney injury superimposed on chronic kidney disease: 73 yo M with PMHx recurrent UTI, neurogenic bladder with self cath 2x daily, CKD stage III, hypomagnesemia, hx of DVT and Factor V Leiden, hx of c diff and s/p large bowel colonic resection with ostomy, who presents with acute kidney injury and UTI. DEBBIE superimposed on CKD Nephrology was consulted following Recs -Baseline creatinine September 2017 2.8 -Currently no indication for emergent dialysis -Electrolytes within normal limits -CT scan from [facility] negative for stone -IVF with D5+150 NaHCO3 @ 100 ml/hr -Meds currently properly dosed for kidney function -Renal U/S showed significant changes bilaterally with no evidence of obstruction -Repeat UA with microscopy tomorrow -Daily BMP -Replete lytes as indicated UTI -Hx numerous UTI most recent giron susceptible -> continue CTX pending micro results -Empiric ceftriaxone day 2 -Culture pending-demonstrates gram-negative bacilli speciation. Sensitivities to follow Anemia Hemoglobin was 8.1, repeat hemoglobin following morning was 6.5. -Studies demonstrate low MCV, iron low normal, low TIBC, and normal ferritin this is presentation is most consistent with anemia of chronic disease with an element of iron deficiency anemia -Consider supplemental iron -Status post 1 unit packed red blood cells this morning -A.m. CBC with noon H&H -Vitals stable pulse 75, respiratory rate 18, satting 98% on room air. BP 106/52 however hypotensive on admission. -no signs or symptoms of acute bleed or symptomatic anemia -Likely dilutional secondary to fluids administered for DEBBIE -Corresponding hematological labs trended in the same direction hematocrit 24.5-18.8, RBCs 2.82-2.20, WBCs 7.41-5.36 -Noontime hemoglobin 7.8 demonstrating good response to PRBCs we will recheck at 6 PM -Fecal occult blood check Neurogenic Bladder -Bladder scan q 3 hours -Straight cath PRN -Consulted uro following recs -Leave Amrinelli catheter in for at least a week to allow maximal drainage of the bladder during the treatment phase of the infection -Outpatient follow-up in 2 weeks with reschedule cystoscopy -Irrigate and flush Marinelli catheter History of C. difficile infection Patient reports loose stools x3 days with foul smell follow-up C. difficile culture Sarcopenia BMI 19 weight loss and muscle wasting decreased albumin -Boost supplementation Hypomagnesemia - Mag 1.6 upon admission, even 1 g IV in the ED -1.5 this am, mag oxide 400 mg q12h FENa:Heart healthy diet, IVF with D5+150 NaHCO3 @ 100 ml/hr, replete lytes as indicated Code Status: Full Code DVT PPX: Teds, SCDS, Heparin subq Dispo: Inpatient (2) Neurogenic bladder: (3) UTI (urinary tract infection): Supervising Physician Co-Signing Physician Notes Attending attestation Pt seen and examined in concert with Dr. Alcala. In agreement with the doc umented findings as noted in the resident documentation with any exceptions or additions as noted here. Resting comfortably in bed complaining of diffuse fatigue which is stable from previous. On examination, S1/S2 nl RRR no MCG. CTAB. Abd NT/ND BS+ve DEBBIE on CKD III - nephrology consultation appreciated - continue NaHCO3, monitor BMP Urinary tract infection - continue ceftriaxone, follow culture Anemia, chronic, likely ACD - drop is likely dilutional - transfuse 1U PRBC, monitor CBC, check fecal occult blood Else see resident documentation as noted. Subjective Patient reports starting to feel bad approximately 1 week ago, having increased fatigue with basic ADLs. Approximately 3 days ago he got acutely worse, observing cloudy, purulent mucoid discharge during self caths. He also reports left-sided flank pain with intermittent foul-smelling urine. Denies hematuria. On the evening of 425 he presented to [facility] ER, CT abdomen pelvis was obt ained negative for acute findings. CR was elevated to 7.7 and BUN was 83. He received IV pain medication and was prescribed an antibiotic but did not receive IV antibiotics in the ER. He was unable to berry picker his Bactrim prescription as the pharmacy was closed. He contacted his urologist Dr. Corona the following morning who referred him to the [facility] ER. On presentatio n he was experiencing left pain without movement that waxed and waned, urine findings were unchanged. He has a history of multiple UTIs associated with kidney stones. Recently he has not been eating as much but has been maintaining fluid intake. Also notes a foul smell to his ostomy and output has been more liquid. Patient was admitted for DEBBIE in the setting of chronic kidney disease and urinary tract infection. Patient sitting in his chair this morning in no acute distress. Reports no acute events overnight however feels quite fatigued. Patient is tolerating his diet, voiding, producing stool via ostomy, and sleeping well. Patient has no complaints at present, denies any hematochezia darkness Blacks tarriness in his ostomy output. All questions answered no concerns at present. Physical Exam Physical Exam: General: awake, alert, no apparent distress, + fatigued, + thin Head: Normocephalic, atraumatic ENT: EOMI, no pharyngeal exudate, mucous membranes moist Chest: Clear to auscultation, on room air, no adventitious breath sounds Cardiac: Regular rate and rhythm, no murmur, no JVD, normal peripheral pulses, good capillary refill Abdominal: NABS x 4 quadrants, soft, nondistended, + Ostomy in RLQ with light brown loose outs, + tender to palpation in the LUQ close to rib cage, no rebound or guarding Extremities: Moves all extremities, calves nontender to palpation, no peripheral edema Psych: Normal mood, slightly flat affect Neuro: AAO x4, ports sensorimotor functions are intact Results & Data Vital Signs (Past 12 Hours) Vital Signs Temp Pulse Resp BP Pulse Ox 10/29/18 22:39 36.6 C 89 18 112/58 L 97 Laboratory Results 10/30/18 05:15 10/30/18 05:15 10/30/18 10/30/18 10/29/18 Range/Units 05:15 05:15 13:30 WBC 5.36 (4.8-10.8) K/uL RBC 2.20 L (4.7-6.1) M/uL Hgb 6.5 L* (14.0-18.0) g/dL Hct 18.8 L* (42-52) % MCV 85.5 (80-100) fL MCH 29.5 (25-34) pg MCHC 34.6 (32-36) g/dL RDW Std Deviation 48.7 H (36.4-46.3) fL RDW Coeff of Rubi 15.5 H (11.5-14.5) % Plt Count 155 (130-400) K/uL MPV 9.2 (7.4-10.4) fL Immature Gran % (Auto) % Neut % (Auto) % Lymph % (Auto) % [place] % (Auto) % Eos % (Auto) % Baso % (Auto) % Immature Gran # (Auto) (0.00-0.02) K/uL Neut # (Auto) (1.4-6.5) K/uL Lymph # (Auto) (1.2-3.4) K/uL [place] # (Auto) (0.11-0.59) K/uL Eos # (Auto) (0-0.5) K/uL Baso # (Auto) (0-0.2) K/uL Sodium 141 (136-145) mmol/L Potassium 3.7 D (3.5-5.1) mmol/L Chloride 117 H (98-107) mmol/L Carbon Dioxide 15 L (21-32) mmol/L Anion Gap 9.0 (3-11) BUN 72 H (7-18) mg/dl Creatinine 6.70 H* D (0.6-1.4) mg/dl Est Cr Clr Drug Dosing 8.2 ml/min Est GFR ( Amer) 8.6 Est GFR (Non-Af Amer) 7.4 BUN/Creatinine Ratio 10.8 (10-20) Glucose 96 (70-99) mg/dl Calcium 7.2 L (8.5-10.1) mg/dl Phosphorus 5.5 H (2.5-4.9) mg/dl Magnesium 1.5 L (1.8-2.4) mg/dl Iron 61 (35-175) mcg/dl TIBC 142 L (250-450) mcg/dl Transferrin 122 L (200-360) mg/dl Transferrin % Sat 35 (20-50) % Ferritin 167.7 (8-388) ng/ml Total Bilirubin 0.3 (0.2-1) mg/dl AST 6 L (15-37) U/L ALT 10 L (12-78) U/L Alkaline Phosphatase 84 (45-117) U/L Total Protein 5.3 L D (6.4-8.2) gm/dl Albumin 2.5 L (3.4-5.0) gm/dl Globulin 2.8 (2.5-4.0) gm/dl Albumin/Globulin Ratio 0.9 (0.9-2) Lipase (73-393) U/L TSH (0.300-4.500) uIu/ml Urine Color Yellow Urine Appearance Turbid H (Clear) Urine pH 5.5 (4.5-7.5) Ur Specific [place] 1.018 (1.000-1.030) Urine Protein 2+ H (Negative) Urine Glucose (UA) Negative (Negative) Urine Ketones Negative (Negative) Urine Blood 2+ H (Negative) Urine Nitrite Negative (Negative) Urine Bilirubin Negative (Negative) Urine Urobilinogen Negative (Negative) Ur Leukocyte Esterase 3+ H (Negative) Urine WBC (Auto) >30 H (0-5) /hpf Urine RBC (Auto) 10-30 H (0-4) /hpf U Hyaline Cast (Auto) 0 (0-5) /lpf U Epithel Cells (Auto) >30 H (0-5) /lpf Urine Bacteria (Auto) 3+ H (Negative) Urine Yeast Not Reportable 10/29/18 10/29/18 Range/Units 13:12 13:12 WBC 7.41 (4.8-10.8) K/uL RBC 2.82 L (4.7-6.1) M/uL Hgb 8.1 L (14.0-18.0) g/dL Hct 24.5 L (42-52) % MCV 86.9 (80-100) fL MCH 28.7 (25-34) pg MCHC 33.1 (32-36) g/dL RDW Std Deviation 51.7 H (36.4-46.3) fL RDW Coeff of Rubi 15.9 H (11.5-14.5) % Plt Count 176 (130-400) K/uL MPV 9.1 (7.4-10.4) fL Immature Gran % (Auto) 0.5 % Neut % (Auto) 76.8 % Lymph % (Auto) 8.9 % [place] % (Auto) 13.0 % Eos % (Auto) 0.5 % Baso % (Auto) 0.3 % Immature Gran # (Auto) 0.04 H (0.00-0.02) K/uL Neut # (Auto) 5.69 (1.4-6.5) K/uL Lymph # (Auto) 0.66 L (1.2-3.4) K/uL [place] # (Auto) 0.96 H (0.11-0.59) K/uL Eos # (Auto) 0.04 (0-0.5) K/uL Baso # (Auto) 0.02 (0-0.2) K/uL Sodium 140 (136-145) mmol/L Potassium 4.6 (3.5-5.1) mmol/L Chloride 120 H (98-107) mmol/L Carbon Dioxide 10 L (21-32) mmol/L Anion Gap 10.0 (3-11) BUN 80 H (7-18) mg/dl Creatinine 7.05 H* (0.6-1.4) mg/dl Est Cr Clr Drug Dosing 7.2 ml/min Est GFR ( Amer) 8.1 Est GFR (Non-Af Amer) 7.0 BUN/Creatinine Ratio 11.3 (10-20) Glucose 102 H (70-99) mg/dl Calcium 7.9 L (8.5-10.1) mg/dl Phosphorus (2.5-4.9) mg/dl Magnesium 1.6 L (1.8-2.4) mg/dl Iron (35-175) mcg/dl TIBC (250-450) mcg/dl Transferrin (200-360) mg/dl Transferrin % Sat (20-50) % Ferritin (8-388) ng/ml Total Bilirubin 0.2 (0.2-1) mg/dl AST < 3 L (15-37) U/L ALT 12 (12-78) U/L Alkaline Phosphatase 112 (45-117) U/L Total Protein 7.1 (6.4-8.2) gm/dl Albumin 3.4 (3.4-5.0) gm/dl Globulin 3.7 (2.5-4.0) gm/dl Albumin/Globulin Ratio 0.9 (0.9-2) Lipase 122 (73-393) U/L TSH 1.260 (0.300-4.500) uIu/ml Urine Color Urine Appearance (Clear) Urine pH (4.5-7.5) Ur Specific [place] (1.000-1.030) Urine Protein (Negative) Urine Glucose (UA) (Negative) Urine Ketones (Negative) Urine Blood (Negative) Urine Nitrite (Negative) Urine Bilirubin (Negative) Urine Urobilinogen (Negative) Ur Leukocyte Esterase (Negative) Urine WBC (Auto) (0-5) /hpf Urine RBC (Auto) (0-4) /hpf U Hyaline Cast (Auto) (0-5) /lpf U Epithel Cells (Auto) (0-5) /lpf Urine Bacteria (Auto) (Negative) Urine Yeast Medications Administered Current Inpatient Medications Acetaminophen (Tylenol) 650 mg PO Q4H PRN PRN Reason: Moderate Pain Stop: 11/28/18 15:43 Artificial Tears (Artificial Tears) 1 drops OPB QAM PRN PRN Reason: DRY EYES Stop: 11/28/18 16:59 Heparin Sodium (Porcine) (Heparin Sodium (Porcine)) 5,000 units SQ Q12 [facility] Stop: 11/28/18 20:59 Last Admin: 10/29/18 21:45 Dose: 5,000 units Documented by: Ceftriaxone Sodium 1,000 mg/ (Dextrose) 50 mls @ 100 mls/hr IV DAILY@1200 MARIA DEL CARMEN; Protocol Stop: 11/08/18 11:59 Sodium Bicarbonate 150 meq/ (Dextrose) 1,150 mls @ 125 mls/hr IV .[id number] [facility] Stop: 11/28/18 18:44 Last Admin: 10/30/18 04:41 Dose: 125 mls/hr Documented by: Lactobacillus Acidophilus (Floranex) 4 tab PO QIDM [facility] Stop: 11/28/18 17:59 Last Admin: 10/29/18 21:42 Dose: 4 tab Documented by: Morphine Sulfate (Morphine Sulfate) 1 mg IV Q2H PRN PRN Reason: Pain Stop: 11/12/18 17:16 Last Admin: 10/29/18 19:00 Dose: 1 mg Documented by: Multivitamins (Multivitamin Tab) 1 tab PO QAM [facility] Stop: 11/29/18 08:59 Multivitamins/Minerals (Multivitamin W/ Minerals Tab) 1 tab PO QAM [facility] Stop: 11/29/18 08:59 Ondansetron HCl (Zofran) 4 mg IV Q4H PRN PRN Reason: Nausea And Vomiting Stop: 11/28/18 15:43 Pantoprazole Sodium (Protonix) 40 mg PO QAM [facility] Stop: 11/29/18 08:59 Timolol Maleate (Timoptic 0.25% Oph) 1 drops OPL BID [facility] Stop: 11/28/18 20:59 Last Admin: 10/29/18 21:43 Dose: 1 drops Documented by: Resident Activity Tracking Resident Involvement: Resident Care Provided Care Provided: Adult Hospital Medicine (1) UTI (urinary tract infection) Hematuria presence: without hematuria Urinary tract infection type: site unspecified Qualified Code(s): N39.0 - Urinary tract infection, site not specified
[2018-10-30] MEDS: MULTIVITAMIN TAB PO SCH (08:00)
[2018-10-30] MEDS: CEROVITE ADV FORMULA TAB PO SCH (08:00)
[2018-10-30] MEDS: LACTOBACILLUS ACIDOPHILUS (FLORANEX) TAB PO SCH ×4 (08:00→20:08)
[2018-10-30] MEDS: PANTOprazole 40 MG TAB PO SCH (08:00)
[2018-10-30] MEDS: HEPARIN SOD 5,000 UNIT/0.5 ML VIAL SQ SCH ×2 (08:01→20:10)
[2018-10-30] MEDS: TIMOLOL MALEATE 0.25% OP SOLN 5 ML BTL OPL SCH ×2 (08:03→20:09)
[2018-10-30] MEDS ORDERED: SODIUM CHLORIDE 0.9% 250 ML IV PRN ×2 (08:33→09:43)
--- NOTE | 2018-10-30 09:21 | Urology Consultation ---
Date of Consultation October 30, 2018 Assessment & Plan (1) Neurogenic bladder: A/P 73-year-old male with a history of recurrent urinary acute on chronic renal failure and neurogenic bladder. Bartlett catheter in place. I suspect his chronic bladder outlet obstruction is a significant contributor to his urinary tract infections. The complete etiology of his current difficulties with renal function is unclear but does not seem to be due to upper tract obstruction. Bartlett catheter is in place with drainage of cloudy urine. Urine cultures are pending. Patient currently does not appear clinically septic and is not febrile. Continue broad-spectrum antibiotic coverage until culture is resolved. No acute surgical intervention at this time. We will leave the Bartlett catheter in place for at least a week to allow for maximal drainage of the bladder during the treatment phase of the patient's infection. Will arrange for outpatient follow-up in our office in 1 to 2 weeks time, possibly with a rescheduled cystoscopy to discuss the long-term plan with respect to his bladder management. In the meanwhile we will order flushing of the catheter to place and evacuate some of the ongoing debris which is present due to long-standing stasis. Patient vocalizes understanding of the treatment plan. Thank you for allowing us to participate in this patient's care. Please contact our service with any questions or concerns. (2) UTI (urinary tract infection): History of Present Illness Reason for Consultation: Neurogenic bladder and recurrent urinary tract infection Attending Physician: Rj Ricks MD History of Present Illness Patient is a pleasant 73-year-old male, last seen in our office in July 2018, admitted due to recurrent urinary tract infection and acute on chronic renal failure with a creatinine at admission of about 7 up from a baseline of about 2.5. Patient has been on a CIC regimen for his neurogenic bladder and was to be irrigating his bladder due to debris and recurrent infection although he notes diminished compliance with this as of late. He has missed an appointment in September 2018 for a cystoscopy due to ostomy malfunction at the time. His inpatient and outpatient chart are reviewed as is his renal ultrasound on admission demonstrating no hydronephrosis, nonobstructing stones and renal cortical atrophy consistent with his long-standing renal insufficiency. Hospitalist, ER and nephrology notes are reviewed. He has had an outpatient CT scan at [facility] demonstrating no obstructive stones per chart review. Patient reports he feels somewhat better currently and Bartlett catheter is in place draining cloudy urine. Urology consultation is requested to assist with his inpatient care. Allergies Allergy/AdvReac Type Severity Reaction Status Date / Time adhesive AdvReac Mild SKIN Verified 10/29/18 12:29 IRRITATION - SEE COMMENTS BELOW Home Medications Home Medications Medication Instructions Recorded Confirmed Type acetaminophen [Tylenol Extra 500 mg PO Q6H PRN 10/29/18 10/29/18 History Strength] ascorbic acid (vitamin C) [Vitamin 0 mg PO BID 10/29/18 10/29/18 History C] multivitamin 1 tab PO BID 10/29/18 10/29/18 History pantoprazole 40 mg PO QAM 10/29/18 10/29/18 History peg [id number] [Eye 1 drp OPB QAM 10/29/18 10/29/18 History Drop Tears] timolol maleate 1 drp OPL BID 10/29/18 10/29/18 History vit A,C and [id number] 1 tab PO QAM 10/29/18 10/29/18 History [Ocuvite with Lutein] Patient History Medical History Acute kidney injury superimposed on chronic kidney disease (Acute) Sepsis (Acute) Colostomy in place Kidney stones Neurogenic bladder Surgical History S/P ureteral stent placement Family History Other Family history non-contributory Social History Preferred Language: Brazilian Communication Ability: Effective Care Director Required: Yes Beliefs That Will Affect Care: None marital status: Current Living Situation: Spouse current occupational status: retired Other Information That Helps Us Care for You: No Feels Safe at Home: Yes Safety Concerns: Feels Safe At This Time Smoking Status: Never smoker Hx Alcohol Use: No Hx Substance Use: No Review of Systems Constitutional: + fatigue and + weight loss; no fever and no chills Eyes: no diplopia and no discharge Ear, Nose, Mouth, Throat: no ear trauma Respiratory: no hemoptysis Cardiovascular: no chest pain Gastrointestinal: no nausea, no vomiting and no hematemesis Genitourinary: + difficulty urinating Musculoskeletal: no swelling Integumentary: no acne and no boil Neurologic: no paralysis Psychiatric: no panic attacks Endocrine: + fatigue Hematologic / Lymphatic: no lymphadenopathy Physical Exam Constitutional: WD/WN, vitals as above no acute distress and not ill appearing Eyes: eyes not dysmorphic ENMT: Ears: no external ear abnormality Neck: trachea midline; no anterior neck swelling Respiratory: no respiratory distress, no retractions and does not use accessory muscles Cardiovascular: Vessels: radial pulses present Gastrointestinal (Abdomen): Inspection/Auscultation: abdomen not distended Percussion/Palpation: abdomen soft; abdomen nontender and no guarding Musculoskeletal: Head/Neck/Chest: normocephalic Skin: normal turgor Neurologic: awake; not obtunded Psychiatric: Orientation: oriented x 3 Genitourinary: bartlett in place with cloudy urine Lymphatic: no lymphadenopathy Results & Data Vital Signs (Past 12 Hours) Vital Signs Temp Pulse Resp BP Pulse Ox 10/30/18 07:23 36.8 C 75 18 106/52 L 98 10/29/18 22:39 36.6 C 89 18 112/58 L 97 Laboratory Results Laboratory Results - last 48 hr 10/29/18 10/29/18 10/29/18 13:12 13:12 13:30 WBC 7.41 RBC 2.82 L Hgb 8.1 L Hct 24.5 L MCV 86.9 MCH 28.7 MCHC 33.1 RDW Std Deviation 51.7 H RDW Coeff of Rubi 15.9 H Plt Count 176 MPV 9.1 Immature Gran % (Auto) 0.5 Neut % (Auto) 76.8 Lymph % (Auto) 8.9 [place] % (Auto) 13.0 Eos % (Auto) 0.5 Baso % (Auto) 0.3 Immature Gran # (Auto) 0.04 H Neut # (Auto) 5.69 Lymph # (Auto) 0.66 L [place] # (Auto) 0.96 H Eos # (Auto) 0.04 Baso # (Auto) 0.02 Sodium 140 Potassium 4.6 Chloride 120 H Carbon Dioxide 10 L Anion Gap 10.0 BUN 80 H Creatinine 7.05 H* Est Cr Clr Drug Dosing 7.2 Est GFR ( Amer) 8.1 Est GFR (Non-Af Amer) 7.0 BUN/Creatinine Ratio 11.3 Glucose 102 H Calcium 7.9 L Phosphorus Magnesium 1.6 L Iron TIBC Transferrin Transferrin % Sat Ferritin Total Bilirubin 0.2 AST < 3 L ALT 12 Alkaline Phosphatase 112 Total Protein 7.1 Albumin 3.4 Globulin 3.7 Albumin/Globulin Ratio 0.9 Lipase 122 TSH 1.260 Urine Color Yellow Urine Appearance Turbid H Urine pH 5.5 Ur Specific [place] 1.018 Urine Protein 2+ H Urine Glucose (UA) Negative Urine Ketones Negative Urine Blood 2+ H Urine Nitrite Negative Urine Bilirubin Negative Urine Urobilinogen Negative Ur Leukocyte Esterase 3+ H Urine WBC (Auto) >30 H Urine RBC (Auto) 10-30 H U Hyaline Cast (Auto) 0 U Epithel Cells (Auto) >30 H Urine Bacteria (Auto) 3+ H Urine Yeast Not Reportable 10/30/18 10/30/18 05:15 05:15 WBC 5.36 RBC 2.20 L Hgb 6.5 L* Hct 18.8 L* MCV 85.5 MCH 29.5 MCHC 34.6 RDW Std Deviation 48.7 H RDW Coeff of Rubi 15.5 H Plt Count 155 MPV 9.2 Immature Gran % (Auto) Neut % (Auto) Lymph % (Auto) [place] % (Auto) Eos % (Auto) Baso % (Auto) Immature Gran # (Auto) Neut # (Auto) Lymph # (Auto) [place] # (Auto) Eos # (Auto) Baso # (Auto) Sodium 141 Potassium 3.7 D Chloride 117 H Carbon Dioxide 15 L Anion Gap 9.0 BUN 72 H Creatinine 6.70 H* D Est Cr Clr Drug Dosing 8.2 Est GFR ( Amer) 8.6 Est GFR (Non-Af Amer) 7.4 BUN/Creatinine Ratio 10.8 Glucose 96 Calcium 7.2 L Phosphorus 5.5 H Magnesium 1.5 L Iron 61 TIBC 142 L Transferrin 122 L Transferrin % Sat 35 Ferritin 167.7 Total Bilirubin 0.3 AST 6 L ALT 10 L Alkaline Phosphatase 84 Total Protein 5.3 L D Albumin 2.5 L Globulin 2.8 Albumin/Globulin Ratio 0.9 Lipase TSH Urine Color Urine Appearance Urine pH Ur Specific [place] Urine Protein Urine Glucose (UA) Urine Ketones Urine Blood Urine Nitrite Urine Bilirubin Urine Urobilinogen Ur Leukocyte Esterase Urine WBC (Auto) Urine RBC (Auto) U Hyaline Cast (Auto) U Epithel Cells (Auto) Urine Bacteria (Auto) Urine Yeast Diagnostic Findings Laboratory Results WBC 5.36 K/uL (4.8-10.8) 10/30/18 05:15 RBC 2.20 M/uL (4.7-6.1) L 10/30/18 05:15 Hgb 6.5 g/dL (14.0-18.0) L* 10/30/18 05:15 Hct 18.8 % (42-52) L* 10/30/18 05:15 MCV 85.5 fL (80-100) 10/30/18 05:15 MCH 29.5 pg (25-34) 10/30/18 05:15 MCHC 34.6 g/dL (32-36) 10/30/18 05:15 RDW Std Deviation 48.7 fL (36.4-46.3) H 10/30/18 05:15 RDW Coeff of Rubi 15.5 % (11.5-14.5) H 10/30/18 05:15 Plt Count 155 K/uL (130-400) 10/30/18 05:15 MPV 9.2 fL (7.4-10.4) 10/30/18 05:15 Immature Gran % (Auto) 0.5 % 10/29/18 13:12 Neut % (Auto) 76.8 % 10/29/18 13:12 Lymph % (Auto) 8.9 % 10/29/18 13:12 [place] % (Auto) 13.0 % 10/29/18 13:12 Eos % (Auto) 0.5 % 10/29/18 13:12 Baso % (Auto) 0.3 % 10/29/18 13:12 Immature Gran # (Auto) 0.04 K/uL (0.00-0.02) H 10/29/18 13:12 Neut # (Auto) 5.69 K/uL (1.4-6.5) 10/29/18 13:12 Lymph # (Auto) 0.66 K/uL (1.2-3.4) L 10/29/18 13:12 [place] # (Auto) 0.96 K/uL (0.11-0.59) H 10/29/18 13:12 Eos # (Auto) 0.04 K/uL (0-0.5) 10/29/18 13:12 Baso # (Auto) 0.02 K/uL (0-0.2) 10/29/18 13:12 Sodium 141 mmol/L (136-145) 10/30/18 05:15 Potassium 3.7 mmol/L (3.5-5.1) D 10/30/18 05:15 Chloride 117 mmol/L (98-107) H 10/30/18 05:15 Carbon Dioxide 15 mmol/L (21-32) L 10/30/18 05:15 Anion Gap 9.0 (3-11) 10/30/18 05:15 BUN 72 mg/dl (7-18) H 10/30/18 05:15 Creatinine 6.70 mg/dl (0.6-1.4) H* D 10/30/18 05:15 Est Cr Clr Drug Dosing 8.2 ml/min 10/30/18 05:15 Est GFR ( Amer) 8.6 10/30/18 05:15 Est GFR (Non-Af Amer) 7.4 10/30/18 05:15 BUN/Creatinine Ratio 10.8 (10-20) 10/30/18 05:15 Glucose 96 mg/dl (70-99) 10/30/18 05:15 Calcium 7.2 mg/dl (8.5-10.1) L 10/30/18 05:15 Phosphorus 5.5 mg/dl (2.5-4.9) H 10/30/18 05:15 Magnesium 1.5 mg/dl (1.8-2.4) L 10/30/18 05:15 Iron 61 mcg/dl (35-175) 10/30/18 05:15 TIBC 142 mcg/dl (250-450) L 10/30/18 05:15 Transferrin 122 mg/dl (200-360) L 10/30/18 05:15 Transferrin % Sat 35 % (20-50) 10/30/18 05:15 Ferritin 167.7 ng/ml (8-388) 10/30/18 05:15 Total Bilirubin 0.3 mg/dl (0.2-1) 10/30/18 05:15 AST 6 U/L (15-37) L 10/30/18 05:15 ALT 10 U/L (12-78) L 10/30/18 05:15 Alkaline Phosphatase 84 U/L (45-117) 10/30/18 05:15 Total Protein 5.3 gm/dl (6.4-8.2) L D 10/30/18 05:15 Albumin 2.5 gm/dl (3.4-5.0) L 10/30/18 05:15 Globulin 2.8 gm/dl (2.5-4.0) 10/30/18 05:15 Albumin/Globulin Ratio 0.9 (0.9-2) 10/30/18 05:15 Lipase 122 U/L (73-393) 10/29/18 13:12 TSH 1.260 uIu/ml (0.300-4.500) 10/29/18 13:12 Urine Color Yellow 10/29/18 13:30 Urine Appearance Turbid (Clear) H 10/29/18 13:30 Urine pH 5.5 (4.5-7.5) 10/29/18 13:30 Ur Specific [place] 1.018 (1.000-1.030) 10/29/18 13:30 Urine Protein 2+ (Negative) H 10/29/18 13:30 Urine Glucose (UA) Negative (Negative) 10/29/18 13:30 Urine Ketones Negative (Negative) 10/29/18 13:30 Urine Blood 2+ (Negative) H 10/29/18 13:30 Urine Nitrite Negative (Negative) 10/29/18 13:30 Urine Bilirubin Negative (Negative) 10/29/18 13:30 Urine Urobilinogen Negative (Negative) 10/29/18 13:30 Ur Leukocyte Esterase 3+ (Negative) H 10/29/18 13:30 Urine WBC (Auto) >30 /hpf (0-5) H 10/29/18 13:30 Urine RBC (Auto) 10-30 /hpf (0-4) H 10/29/18 13:30 U Hyaline Cast (Auto) 0 /lpf (0-5) 10/29/18 13:30 U Epithel Cells (Auto) >30 /lpf (0-5) H 10/29/18 13:30 Urine Bacteria (Auto) 3+ (Negative) H 10/29/18 13:30 Urine Yeast Not Reportable 10/29/18 13:30 (1) UTI (urinary tract infection) Hematuria presence: without hematuria Urinary tract infection type: site unspecified Qualified Code(s): N39.0 - Urinary tract infection, site not specified
--- NOTE | 2018-10-30 11:25 | Nephrology Progress Note ---
Date of Service October 30, 2018 Assessment & Plan (1) Acute kidney injury superimposed on chronic kidney disease: -- Non-oliguric -- Renal US reviewed this AM: significant chronic changes bilaterally, no evidence of obstruction -- Volume status improving; tolerating IVF well -- Electrolytes are acceptable -- No emergent role for dialysis -- UA/microscopy consistent with UTI -- Will repeat UA/microscopy tomorrow AM -- NAGMA consistent with renal dysfunction and GI losses per history -- Continue IVF with D5+150 NaHCO3 @ 100 ml/hr -- Document I/O's; Marinelli to gravity -- Repeat metabolic profile tomorrow AM -- Medications are currently appropriately dosed for kidney function (2) Chronic kidney disease: -- Baseline creatinine in September 2017 was 2.8 mg/dL -- Multiple episodes of DEBBIE (3) Anemia: -- 1 u PRBC transfusion support provided this AM -- Iron profile acceptable -- Hemoccult pending -- Anemia of CKD likely contributing but cannot complete exclude other etiologies -- Monitor H/H closely (4) UTI (urinary tract infection): -- Empiric ceftriaxone started -- Culture pending (5) Nephrolithiasis: -- Small non-obstructing stone noted in left renal pelvis (6) Neurogenic bladder: -- Urology consult appreciated -- Marinelli to gravity Subjective No acute events overnight. No fevers or chills. Trevon denies melena or hematochezia. Stool remains liquid. No abdominal pain. He did comment on interm ittent tarry stool several weeks ago but nothing persistent. He denies dyspnea. Denies lightheadedness or dizziness. Appetite remains poor. Generalized weakness persists. Review of Systems Review of Systems: All systems reviewed & are unremarkable except as noted in HPI & below Physical Exam Constitutional: + thin and + frail appearing; no acute distress Eyes: no scleral abnormality and no corneal abnormality ENMT: Mouth: + dry oral mucous membranes; no oral mucosal abnormality Neck: trachea midline, no thyromegaly Respiratory: normal respiratory effort; no respiratory distress Auscultation: lungs clear to auscultation bilaterally Cardiovascular: Rate/Rhythm: regular rate Heart Sounds: normal S1 and normal S2; no murmur Vessels: no JVD Extremities: no edema Gastrointestinal (Abdomen): Percussion/Palpation: abdomen soft; abdomen nontender and no guarding Musculoskeletal: Extremities: no cyanosis and no clubbing Skin: normal turgor; no rashes Neurologic: Motor/Sensory: no tremor and no asterixis Psychiatric: Affect: euthymic affect Results & Data Vital Signs (Past 12 Hours) Vital Signs Temp Pulse Pulse Resp BP BP Pulse Ox 10/30/18 10:50 37 C 73 16 104/53 L 97 10/30/18 10:35 37 C 75 16 98/54 L 97 10/30/18 10:15 36.9 C 74 16 103/56 L 10/30/18 07:23 36.8 C 75 18 106/52 L 98 Laboratory Results Laboratory Results - last 24 hr 10/29/18 10/29/18 10/29/18 13:12 13:12 13:30 WBC 7.41 RBC 2.82 L Hgb 8.1 L Hct 24.5 L MCV 86.9 MCH 28.7 MCHC 33.1 RDW Std Deviation 51.7 H RDW Coeff of Rubi 15.9 H Plt Count 176 MPV 9.1 Immature Gran % (Auto) 0.5 Neut % (Auto) 76.8 Lymph % (Auto) 8.9 [place] % (Auto) 13.0 Eos % (Auto) 0.5 Baso % (Auto) 0.3 Immature Gran # (Auto) 0.04 H Neut # (Auto) 5.69 Lymph # (Auto) 0.66 L [place] # (Auto) 0.96 H Eos # (Auto) 0.04 Baso # (Auto) 0.02 Sodium 140 Potassium 4.6 Chloride 120 H Carbon Dioxide 10 L Anion Gap 10.0 BUN 80 H Creatinine 7.05 H* Est Cr Clr Drug Dosing 7.2 Est GFR ( Amer) 8.1 Est GFR (Non-Af Amer) 7.0 BUN/Creatinine Ratio 11.3 Glucose 102 H Calcium 7.9 L Phosphorus Magnesium 1.6 L Iron TIBC Transferrin Transferrin % Sat Ferritin Total Bilirubin 0.2 AST < 3 L ALT 12 Alkaline Phosphatase 112 Total Protein 7.1 Albumin 3.4 Globulin 3.7 Albumin/Globulin Ratio 0.9 Lipase 122 TSH 1.260 Urine Color Yellow Urine Appearance Turbid H Urine pH 5.5 Ur Specific [place] 1.018 Urine Protein 2+ H Urine Glucose (UA) Negative Urine Ketones Negative Urine Blood 2+ H Urine Nitrite Negative Urine Bilirubin Negative Urine Urobilinogen Negative Ur Leukocyte Esterase 3+ H Urine WBC (Auto) >30 H Urine RBC (Auto) 10-30 H U Hyaline Cast (Auto) 0 U Epithel Cells (Auto) >30 H Urine Bacteria (Auto) 3+ H Urine Yeast Not Reportable Blood Type Antibody Screen Crossmatch 10/30/18 10/30/18 10/30/18 05:15 05:15 09:00 WBC 5.36 RBC 2.20 L Hgb 6.5 L* Hct 18.8 L* MCV 85.5 MCH 29.5 MCHC 34.6 RDW Std Deviation 48.7 H RDW Coeff of Rubi 15.5 H Plt Count 155 MPV 9.2 Immature Gran % (Auto) Neut % (Auto) Lymph % (Auto) [place] % (Auto) Eos % (Auto) Baso % (Auto) Immature Gran # (Auto) Neut # (Auto) Lymph # (Auto) [place] # (Auto) Eos # (Auto) Baso # (Auto) Sodium 141 Potassium 3.7 D Chloride 117 H Carbon Dioxide 15 L Anion Gap 9.0 BUN 72 H Creatinine 6.70 H* D Est Cr Clr Drug Dosing 8.2 Est GFR ( Amer) 8.6 Est GFR (Non-Af Amer) 7.4 BUN/Creatinine Ratio 10.8 Glucose 96 Calcium 7.2 L Phosphorus 5.5 H Magnesium 1.5 L Iron 61 TIBC 142 L Transferrin 122 L Transferrin % Sat 35 Ferritin 167.7 Total Bilirubin 0.3 AST 6 L ALT 10 L Alkaline Phosphatase 84 Total Protein 5.3 L D Albumin 2.5 L Globulin 2.8 Albumin/Globulin Ratio 0.9 Lipase TSH Urine Color Urine Appearance Urine pH Ur Specific [place] Urine Protein Urine Glucose (UA) Urine Ketones Urine Blood Urine Nitrite Urine Bilirubin Urine Urobilinogen Ur Leukocyte Esterase Urine WBC (Auto) Urine RBC (Auto) U Hyaline Cast (Auto) U Epithel Cells (Auto) Urine Bacteria (Auto) Urine Yeast Blood Type O Positive Antibody Screen NEGATIVE Crossmatch See Detail (1) UTI (urinary tract infection) Hematuria presence: without hematuria Urinary tract infection type: site unspecified Qualified Code(s): N39.0 - Urinary tract infection, site not specified
[2018-10-30] MEDS: MAGNESIUM OXIDE 400 MG TAB PO SCH ×2 (11:59→20:09)
[2018-10-30] MEDS: cefTRIAXone SODIUM 1,000 MG in DEXTROSE 5% 50 ML IV SCH (12:48)
[2018-10-30 13:42] LABS: Hemoglobin 7.8 g/dL (14.0-18.0)
[2018-10-30 18:19] LABS: Hematocrit (blood only) 22.5 % (42-52); Hemoglobin 7.8 g/dL (14.0-18.0)
[2018-10-31] MEDS: SODIUM BICARBONATE 8.4% 150 MEQ in DEXTROSE 5% 1,000 ML IV SCH ×3 (05:35→17:59)
[2018-10-31 06:45] LABS: Hematocrit (blood only) 21.4 % (42-52); Hemoglobin 7.4 g/dL (14.0-18.0); Mean Corpuscular Hgb Conc 34.6 g/dL (32-36); Mean Corpuscular Volume 83.6 fL (80-100); Mean Platelet Volume 8.7 fL (7.4-10.4); Platelet Count 163 K/uL (130-400); RDW Coefficient of Variation 15.2 % (11.5-14.5); RDW Standard Deviation 46.7 fL (36.4-46.3); Red Blood Count 2.56 M/uL (4.7-6.1); White Blood Count 6.04 K/uL (4.8-10.8)
[2018-10-31 07:30] LABS: Albumin Globulin Ratio 0.8 (0.9-2); Albumin Level 2.4 gm/dl (3.4-5.0); BUN Creatinine Ratio 10.7 (10-20); Bilirubin,Total 0.2 mg/dl (0.2-1); Calcium 6.8 mg/dl (8.5-10.1); Creatinine Clr Calc Pharmacy 8.7 ml/min; Est GFR (African American) 9.2; Globulin 2.9 gm/dl (2.5-4.0); Potassium 3.4 mmol/L (3.5-5.1); Total Protein 5.3 gm/dl (6.4-8.2)
[2018-10-31] MEDS: CEROVITE ADV FORMULA TAB PO SCH (07:52)
[2018-10-31] MEDS: PANTOprazole 40 MG TAB PO SCH (07:52)
[2018-10-31] MEDS: TIMOLOL MALEATE 0.25% OP SOLN 5 ML BTL OPL SCH ×2 (07:52→21:02)
[2018-10-31] MEDS: LACTOBACILLUS ACIDOPHILUS (FLORANEX) TAB PO SCH ×4 (07:52→21:01)
[2018-10-31] MEDS: MULTIVITAMIN TAB PO SCH (07:52)
[2018-10-31] MEDS: HEPARIN SOD 5,000 UNIT/0.5 ML VIAL SQ SCH ×3 (07:53→21:09)
--- NOTE | 2018-10-31 08:02 | Family Medicine Progress Note ---
Date of Service October 31, 2018 Assessment & Plan (1) Acute kidney injury superimposed on chronic kidney disease: 73 yo M with PMHx recurrent UTI, neurogenic bladder with self cath 2x daily, CKD stage III, hypomagnesemia, hx of DVT and Factor V Leiden, hx of c diff and s/p large bowel colonic resection with ostomy, who presents with acute kidney injury and UTI. DEBBIE superimposed on CKD Nephrology was consulted following Recs -Baseline creatinine September 2017 2.8 -Currently no indication for emergent dialysis -Electrolytes within normal limits -CT scan from [facility] negative for stone -IVF with D5+150 NaHCO3 @ 100 ml/hr -Meds currently properly dosed for kidney function -Renal U/S showed significant changes bilaterally with no evidence of obstruction -Repeat UA with microscopy tomorrow -Daily BMP -Replete lytes as indicated UTI -Hx numerous UTI most recent giron susceptible -Urine culture demonstrates Klebsiella pneumoniae sensitive to ceftriaxone -continue CTX day 2 -when ready can transition to p.o. Keflex Anemia Hemoglobin was 8.1 on admission dropped 6.5 overnight of 10/29 likely dilutional secondary to fluids administered for DEBBIE -Corresponding hematological labs trended in the same direction hematocrit 24.5-18.8, RBCs 2.82-2.20, WBCs 7.41-5.36 -Transfused 1 unit of PRBC 10/31->hgb 7.8, this am 7.4 -likely downtrending 2/2 hemodilution, transfuse 1 unit prbc as hemodilutional will contnue to worsen. -follow up H7H at noon -Studies demonstrate low MCV, iron low normal, low TIBC, and normal ferritin this is presentation is most consistent with anemia of chronic disease with an element of iron deficiency anemia -Consider supplemental iron -A.m. CBC with noon H&H -Vitals stable -no signs or symptoms of acute bleed or symptomatic anemia -FOBT to rule out bleed Neurogenic Bladder -Bladder scan q 3 hours -Straight cath PRN -Consulted uro following recs -Leave Marinelli catheter in for at least a week to allow maximal drainage of the bladder during the treatment phase of the infection -Outpatient follow-up in 2 weeks with reschedule cystoscopy -Irrigate and flush Marinelli catheter History of C. difficile infection Patient reports loose stools x3 days with foul smell follow-up C. difficile culture Sarcopenia BMI 19 weight loss and muscle wasting decreased albumin -Boost supplementation Electrolyte repletion Patient has had most of his colon and small bowel resected given that, question his ability to absorb electrolytes and water. Avoid p.o. electrolyte repletion - Mag 1.4 today -2g mg/so4 IV -Potassium 3.4 this morning -20 meq q2h x2 doses FENa:Heart healthy diet, IVF with D5+150 NaHCO3 @ 100 ml/hr, replete lytes as indicated Code Status: Full Code DVT PPX: Teds, SCDS, Heparin subq Dispo: Inpatient (2) Neurogenic bladder: (3) UTI (urinary tract infection): Supervising Physician Co-Signing Physician Notes Attending attestation Pt seen and examined in concert with Dr. Alcala. In agreement with the documented findings as noted in the resident documentation with any exceptions or additions as noted here. 73 y/o male h/o recurrent UTI w/ neurogenic bladder, CKDIII, DVT w/ FVL p/w DEBBIE and UTI. Reports some cramping abdominal pain w/ decreased ostomy output c/w previous episodes of constipation through ostomy. Does report frequent hydration at home but because of short gut likely has difficulty in absorbtion of water which contributes to DEBBIE. On examination, S1/S2 nl RRR no MCG. CTAB. Abd NT/ND BS+ve Abdominal pain concerning for constipation - prune juice applied today, will escalate with bowel regimen based on response. DEBBIE on CKD III - nephrology consultation appreciated - gradual improvement of Cr. Continue NaHCO3, monitor BMP Urinary tract infection - convert to keflex in AM Anemia, chronic, likely ACD - teetering at 7.4 with hydration - transfuse 1U PRBC, monitor CBC Else see resident documentation as noted. Subjective Pt sitting up in bed this morning in no acute distress. Pt reports no acute events overnight. Yesterday pt ate a banana and things this has made him constipated, pt had prune juice this morning with dark output in his ostomy bag, not likely hematchezia. Pt reports subjective improvement in his symptoms. Marinelli in place, pt making good urine, sleeping well, and tolerating his diet. Answered all questions no acute concerns at present. pt denies Fever, chills, n/v, muscle aches/pain, congestion, sob, cp, or other si/sx of acute process. Physical Exam Physical Exam: General: awake, alert, no apparent distress, + fatigued, + thin Head: Normocephalic, atraumatic ENT: EOMI, no pharyngeal exudate, mucous membranes moist Chest: Clear to auscultation, on room air, no adventitious breath sounds Cardiac: Regular rate and rhythm, no murmur, no JVD, normal peripheral pulses, good capillary refill Abdominal: NABS x 4 quadrants, soft, nondistended, + Ostomy in RLQ with light brown loose outs, + tender to palpation in the LUQ close to rib cage, no rebound or guarding Extremities: Moves all extremities, calves nontender to palpation, no peripheral edema Psych: Normal mood, slightly flat affect Neuro: AAO x4, ports sensorimotor functions are intact Results & Data Vital Signs (Past 12 Hours) Vital Signs Temp Pulse Resp BP Pulse Ox 10/31/18 07:39 36.9 C 85 18 110/60 95 10/31/18 00:00 37.2 C 80 20 126/65 96 Resident Activity Tracking Resident Involvement: Resident Care Provided Care Provided: Adult Hospital Medicine (1) UTI (urinary tract infection) Hematuria presence: without hematuria Urinary tract infection type: site unspecified Qualified Code(s): N39.0 - Urinary tract infection, site not specified
[2018-10-31 09:48] LABS: Magnesium 1.4 mg/dl (1.8-2.4); Phosphorus 4.9 mg/dl (2.5-4.9)
[2018-10-31] MEDS: POTASSIUM CHLORIDE 20 MEQ TABCR PO SCH ×2 (10:20→13:42)
[2018-10-31] MEDS: MAGNESIUM SULFATE / D5W 1 GM/100 ML BAG IV SCH ×2 (10:56→11:59)
[2018-10-31] MEDS ORDERED: SODIUM CHLORIDE 0.9% 250 ML IV PRN ×2 (11:26→11:49)
--- NOTE | 2018-10-31 12:07 | Nephrology Progress Note ---
Date of Service October 31, 2018 Assessment & Plan (1) Acute kidney injury superimposed on chronic kidney disease: -- Non-oliguric -- Renal US: significant chronic changes bilaterally, no evidence of obstruction -- Volume status acceptable -- Will hold additional IVF for now -- Electrolytes are acceptable -- No emergent role for dialysis -- UA/microscopy consistent with UTI -- Will repeat UA/microscopy today -- NAGMA consistent with renal dysfunction and GI losses per history, improved- hold additional replacement for now -- Document I/O's -- Repeat metabolic profile tomorrow AM -- Medications are currently appropriately dosed for kidney function (2) Chronic kidney disease: -- Baseline creatinine in September 2017 was 2.8 mg/dL -- Multiple episodes of DEBBIE (3) Anemia: -- 1 u PRBC transfusion support provided yesterday with adequate response -- Iron profile acceptable -- Epogen 06402 units provided today (4) UTI (urinary tract infection): -- Empiric ceftriaxone started -- Culture +klebsiella (5) Nephrolithiasis: -- Small non-obstructing stone noted in left renal pelvis (6) Neurogenic bladder: -- Urology consult appreciated -- Marinelli to gravity Subjective No acute events overnight. Out of bed with PT this morning. Some weakness noted. Denies lightheadedness or dizziness. Appetite remains fair to poor. No nausea or abdominal pain. Breathing comfortably. No fevers or chills. No urinary com plaints. Review of Systems Review of Systems: All systems reviewed & are unremarkable except as noted in HPI & below Physical Exam Constitutional: + thin and + frail appearing; no acute distress Eyes: no scleral abnormality and no corneal abnormality ENMT: Mouth: + dry oral mucous membranes; no oral mucosal abnormality Neck: trachea midline, no thyromegaly Respiratory: normal respiratory effort; no respiratory distress Auscultation: lungs clear to auscultation bilaterally Cardiovascular: Rate/Rhythm: regular rate Heart Sounds: normal S1 and normal S2; no murmur Vessels: no JVD Extremities: no edema Gastrointestinal (Abdomen): Percussion/Palpation: abdomen soft; abdomen nontender and no guarding Musculoskeletal: Extremities: no cyanosis and no clubbing Skin: normal turgor; no rashes Neurologic: Motor/Sensory: no tremor and no asterixis Psychiatric: Affect: euthymic affect Results & Data Vital Signs (Past 12 Hours) Vital Signs Temp Pulse Resp BP Pulse Ox 10/31/18 07:39 36.9 C 85 18 110/60 95 Laboratory Results Laboratory Results - last 24 hr 10/30/18 10/30/18 10/30/18 09:00 13:28 17:56 WBC RBC Hgb 7.8 L 7.8 L Hct 23.0 L 22.5 L MCV MCH MCHC RDW Std Deviation RDW Coeff of Rubi Plt Count MPV Sodium Potassium Chloride Carbon Dioxide Anion Gap BUN Creatinine Est Cr Clr Drug Dosing Est GFR ( Amer) Est GFR (Non-Af Amer) BUN/Creatinine Ratio Glucose Calcium Phosphorus Magnesium Total Bilirubin AST ALT Alkaline Phosphatase Total Protein Albumin Globulin Albumin/Globulin Ratio Stool Occult Bld Scrn Stl C. diff Tox B Gene Blood Type O Positive Blood Type Recheck Antibody Screen NEGATIVE Crossmatch See Detail 10/31/18 10/31/18 10/31/18 06:30 06:30 06:30 WBC 6.04 RBC 2.56 L Hgb 7.4 L Hct 21.4 L MCV 83.6 MCH 28.9 MCHC 34.6 RDW Std Deviation 46.7 H RDW Coeff of Rubi 15.2 H Plt Count 163 MPV 8.7 Sodium 139 Potassium 3.4 L Chloride 107 Carbon Dioxide 24 Anion Gap 8.0 BUN 68 H Creatinine 6.31 H* D Est Cr Clr Drug Dosing 8.7 Est GFR ( Amer) 9.2 Est GFR (Non-Af Amer) 8.0 BUN/Creatinine Ratio 10.7 Glucose 113 H Calcium 6.8 L Phosphorus 4.9 Magnesium 1.4 L Total Bilirubin 0.2 AST 6 L ALT 10 L Alkaline Phosphatase 78 Total Protein 5.3 L Albumin 2.4 L Globulin 2.9 Albumin/Globulin Ratio 0.8 L Stool Occult Bld Scrn Stl C. diff Tox B Gene Blood Type Blood Type Recheck Antibody Screen Crossmatch 10/31/18 10/31/18 10/31/18 06:30 07:40 10:22 WBC RBC Hgb Hct MCV MCH MCHC RDW Std Deviation RDW Coeff of Rubi Plt Count MPV Sodium Potassium Chloride Carbon Dioxide Anion Gap BUN Creatinine Est Cr Clr Drug Dosing Est GFR ( Amer) Est GFR (Non-Af Amer) BUN/Creatinine Ratio Glucose Calcium Phosphorus Magnesium Total Bilirubin AST ALT Alkaline Phosphatase Total Protein Albumin Globulin Albumin/Globulin Ratio Stool Occult Bld Scrn Negative Stl C. diff Tox B Gene Negative Cdiff Gene Blood Type Blood Type Recheck O Positive Antibody Screen Crossmatch (1) UTI (urinary tract infection) Hematuria presence: without hematuria Urinary tract infection type: site unspecified Qualified Code(s): N39.0 - Urinary tract infection, site not specified
[2018-10-31] MEDS ORDERED: EPOETIN ALFA 20,000 UNITS/ML VIAL SQ SCH (12:30)
[2018-10-31] MEDS: cefTRIAXone SODIUM 1,000 MG in DEXTROSE 5% 50 ML IV SCH (13:43)
[2018-10-31 16:00] LABS: Hemoglobin 9.4 g/dL (14.0-18.0)
[2018-10-31] MEDS ORDERED: SIMETHICONE 80 MG CHEW PO ONE (20:01)
[2018-10-31] MEDS ORDERED: ALUMINUM/MAGNESIUM SUSP 30 ML UDC PO STA (20:01)
--- NOTE | 2018-10-31 20:05 | Progress Note ---
Date of Service October 31, 2018 Subjective RN called regarding pt complaint of chest discomfort when takes a deep breath Chart reviewed Vitals wnl EKG obtained: NSR rate 87, no ST-T wave changes CXR obtained: unchanged small bilateral pleural effusions and bibasilar atelectasis Pt seen: Pt reports across chest discomfort when takes a deep breath. Reports feels like gas pain because can hear belly making sounds and has had similar pain in the past. Pt denies recent hx of surgery, immobilization or long car rides and has been on heparin for DVT prophylaxis Exam: RRR, no m/r/g; taking shallow breaths but CTAB, equal breath sounds bilaterally Maalox and Simethicone ordered Will continue to monitor Results & Data Vital Signs (Past 12 Hours) Vital Signs Temp Pulse Pulse Resp BP BP BP 10/31/18 19:28 70 18 137/69 10/31/18 15:23 36.7 C 70 18 104/61 10/31/18 13:28 36.6 C 70 16 118/68 10/31/18 12:58 36.6 C 71 16 118/68 10/31/18 12:55 36.8 C 72 18 106/62 10/31/18 12:43 36.8 C 69 16 109/64 10/31/18 12:40 36.8 C 73 16 107/64 10/31/18 12:25 36.7 C 70 18 97/52 L 10/31/18 12:22 36.7 C 70 14 97/52 L Pulse Ox 10/31/18 19:28 97 10/31/18 15:23 97 10/31/18 13:28 97 10/31/18 12:58 97 10/31/18 12:55 97 10/31/18 12:43 96 10/31/18 12:40 96 10/31/18 12:25 96 10/31/18 12:22 96
--- NOTE | 2018-10-31 20:41 | XRay Report ---
XR chest 1V portable HISTORY: 73 years-old Male chest pain with deep breaths acute atypical chest pain COMPARISON: Chest radiograph 10/29/2018 TECHNIQUE: Portable AP view of the chest FINDINGS: Cardiomediastinal and hilar silhouettes are unchanged. Small bilateral pleural effusions redemonstrat ed. The pleural effusion on the left has slightly increased in size. Persistent bibasilar opacities. No pneumothorax or overt pulmonary edema. Degenerative changes of the shoulders and spine. IMPRESSION: Small bilateral pleural effusions with bibasilar opacities. The above report was generated using voice recognition software. It may contain grammatical, syntax o r spelling errors. Electronically signed by: Jonathan Martino M.D. 10/31/2018 8:40 PM
[2018-10-31] MEDS: MoRPHine SULFATE 2 MG/ML CARP IV PRN ×2 (21:24→23:45)
[2018-11-01] MEDS: SODIUM BICARBONATE 8.4% 150 MEQ in DEXTROSE 5% 1,000 ML IV SCH (02:40)
[2018-11-01 07:24] LABS: Hematocrit (blood only) 26.5 % (42-52); Hemoglobin 9.3 g/dL (14.0-18.0); Mean Corpuscular Hgb Conc 35.1 g/dL (32-36); Mean Corpuscular Volume 84.4 fL (80-100); Platelet Count 173 K/uL (130-400); RDW Coefficient of Variation 14.9 % (11.5-14.5); RDW Standard Deviation 46.3 fL (36.4-46.3); Red Blood Count 3.14 M/uL (4.7-6.1); White Blood Count 8.76 K/uL (4.8-10.8)
[2018-11-01 08:05] LABS: Albumin Globulin Ratio 0.7 (0.9-2); Albumin Level 2.2 gm/dl (3.4-5.0); BUN Creatinine Ratio 10.1 (10-20); Bilirubin,Total 0.2 mg/dl (0.2-1); Creatinine Clr Calc Pharmacy 9.9 ml/min; Est GFR (African American) 10.7; Est GFR (Non-African American) 9.2; Globulin 3.2 gm/dl (2.5-4.0); Potassium 3.6 mmol/L (3.5-5.1); Total Protein 5.4 gm/dl (6.4-8.2)
[2018-11-01] MEDS: LACTOBACILLUS ACIDOPHILUS (FLORANEX) TAB PO SCH ×4 (08:05→21:09)
[2018-11-01] MEDS: CEROVITE ADV FORMULA TAB PO SCH (08:05)
[2018-11-01] MEDS: HEPARIN SOD 5,000 UNIT/0.5 ML VIAL SQ SCH ×2 (08:06→21:10)
[2018-11-01] MEDS: PANTOprazole 40 MG TAB PO SCH (08:06)
[2018-11-01] MEDS: MULTIVITAMIN TAB PO SCH (08:06)
[2018-11-01] MEDS ORDERED: POTASSIUM CHLORIDE 20 MEQ TABCR PO STA (08:53)
--- NOTE | 2018-11-01 08:54 | Family Medicine Progress Note ---
Date of Service November 01, 2018 Assessment & Plan (1) Acute kidney injury superimposed on chronic kidney disease: 73 yo M with PMHx recurrent UTI, neurogenic bladder with self cath 2x daily, CKD stage III, hypomagnesemia, hx of DVT and Factor V Leiden, hx of c diff and s/p large bowel colonic resection with ostomy, who presents with acute kidney injury and UTI. DEBBIE superimposed on CKD Nephrology was consulted following Recs -Baseline creatinine September 2017 2.8 5.5 today -Currently no indication for emergent dialysis -Electrolytes within normal limits -CT scan from [facility] negative for stone -IVF with D5+150 NaHCO3 @ 100 ml/hr -Meds currently properly dosed for kidney function -Renal U/S showed significant changes bilaterally with no evidence of obstruction, non obstructing stone left renal pelvis -Repeat UA with microscopy tomorrow -Daily BMP -Replete lytes as indicated UTI -Hx numerous UTI most recent giron susceptible -Urine culture demonstrates Klebsiella pneumoniae sensitive to ceftriaxone -continue CTX day 3 -when ready can transition to p.o. Keflex Anemia Hemoglobin was 8.1 on admission dropped 6.5 overnight of 10/29 likely dilutional secondary to fluids administered for DEBBIE -Corresponding hematological labs trended in the same direction hematocrit 24.5-18.8, RBCs 2.82-2.20, WBCs 7.41-5.36 -Transfused 1 unit of PRBC 10/31->hgb 7.8, this am 7.4 -likely downtrending 2/2 hemodilution, -Studies demonstrate low MCV, iron low normal, low TIBC, and normal ferritin this is presentation is most consistent with anemia of chronic disease with an element of iron deficiency anemia -Consider supplemental iron -A.m. CBC with noon H&H -Recieved Epo 2000 units on 10/31 -Vitals stable -no signs or symptoms of acute bleed or symptomatic anemia -FOBT neg Neurogenic Bladder -Bladder scan q 3 hours -Straight cath PRN -Consulted uro following recs -Leave Marinelli catheter in for at least a week to allow maximal drainage of the bladder during the treatment phase of the infection -Outpatient follow-up in 2 weeks with reschedule cystoscopy -Irrigate and flush Marinelli catheter History of C. difficile infection - evidence by path report on prior colonic resection Sarcopenia BMI 19 weight loss and muscle wasting decreased albumin -Boost supplementation Electrolyte repletion Patient has had most of his colon and small bowel resected given that, question his ability to absorb electrolytes and water. Avoid p.o. electrolyte repletion -Potassium 3.6 this morning givin 20 M EQ p.o. FENa:Heart healthy diet, IVF with D5+150 NaHCO3 @ 100 ml/hr, replete lytes as indicated Code Status: Full Code DVT PPX: Teds, SCDS, Heparin subq Dispo: Inpatient (2) Neurogenic bladder: (3) UTI (urinary tract infection): Supervising Physician Co-Signing Physician Notes I personally examined the patient and verified all forbes points of history and exam, discussed case, and agree with decision making with Dr Alcala. feeling ok - chest pain off and on - see last night's notes as well. no sob no orthopnea vitals noted nad breathing unlabored no pallor or icterus. L sided rib pain reproducible. gave trial of OMT without much notable benefit. ARF - ?ATN from volume depletion from GI losses/short gut? ?progression of CKD to ESRD? -- continue fluids, continue to follow closely chest pain - probably rib related DVT proph - heparin SQ Subjective This morning sitting up in his chair in no acute distress. Patient had an episo de of chest pain overnight, nice resident came and evaluated thought to be most likely gas. Patient reports tenderness in the left upper quadrant and subcostal region this morning. Reports that his ostomy output has been distended with gas confirming the overnight residents assessment. Patient is tolerating his diet, has Marinelli in place producing good urine, producing good output in his ostomy, and sleeping well overnight. Patient denies symptoms signs and symptoms of anemia Physical Exam Physical Exam: General: awake, alert, no apparent distress, + fatigued, + thin Head: Normocephalic, atraumatic ENT: EOMI, no pharyngeal exudate, mucous membranes moist Chest: Clear to auscultation, on room air, no adventitious breath sounds Cardiac: Regular rate and rhythm, no murmur, no JVD, normal peripheral pulses, good capillary refill Abdominal: NABS x 4 quadrants, soft, nondistended, + Ostomy in RLQ with light brown loose outs increased gas, + tender to palpation in the LUQ close to rib cage, no rebound or guarding Extremities: Moves all extremities, calves nontender to palpation, no peripheral edema Psych: Normal mood, slightly flat affect Neuro: AAO x4, reports sensorimotor functions are intact Results & Data Vital Signs (Past 12 Hours) Vital Signs Temp Pulse Resp BP Pulse Ox 11/01/18 07:28 37.0 C 95 H 17 102/62 94 10/31/18 23:00 37.3 C 91 H 20 124/69 94 Resident Activity Tracking Resident Involvement: Resident Care Provided Care Provided: Adult Hospital Medicine (1) UTI (urinary tract infection) Hematuria presence: without hematuria Urinary tract infection type: site unspecified Qualified Code(s): N39.0 - Urinary tract infection, site not specified
[2018-11-01] MEDS: SODIUM CHLORIDE 0.9% 1000ML 1,000 ML IV SCH ×2 (09:14→22:47)
[2018-11-01 09:25] LABS: Magnesium 1.9 mg/dl (1.8-2.4); Phosphorus 3.9 mg/dl (2.5-4.9)
--- NOTE | 2018-11-01 10:40 | Nephrology Progress Note ---
Date of Service November 01, 2018 Assessment & Plan (1) Acute kidney injury superimposed on chronic kidney disease: -- Non-oliguric acute kidney injury with underlying most likely advanced CKD ( creatinine was 2.8 in September 2017 ). Renal US: significant chronic changes bilaterally, no evidence of obstruction. Volume status acceptable. Electrolytes are acceptable -- No emergent role for dialysis --renal function slightly improved to creatinine 5.5, continue to monitor renal function --will have 1 of our dialysis nurses aide to comment provide some education regarding renal replacement therapy. -- Document I/O's -- Repeat metabolic profile tomorrow AM -- Medications are currently appropriately dosed for kidney function (2) Chronic kidney disease: (3) Anemia: -- 1 u PRBC transfusion support provided yesterday with adequate response -- Iron profile acceptable -- Epogen 12131 units provided on 10/31/18 (4) UTI (urinary tract infection): -- Empiric ceftriaxone started -- Culture +klebsiella (5) Nephrolithiasis: -- Small non-obstructing stone noted in left renal pelvis (6) Neurogenic bladder: -- Urology consult appreciated -- Marinelli to gravity Subjective Trevon was seen and examined in his room this morning. Overall he is feeling well except back pain which he has been having for some time. CT abdomen pelvis on admission yesterday could not explain the cause for the pain. No postrenal obstruction Physical Exam Constitutional: WD/WN, vitals as above + ill appearing Respiratory: normal respiratory effort, lungs clear to auscultation Cardiovascular: RRR, no murmur, no edema Neurologic: moves all extremities and awake Psychiatric: A+Ox3, euthymic affect Results & Data Vital Signs (Past 12 Hours) Vital Signs Temp Pulse Resp BP Pulse Ox 11/01/18 07:28 37.0 C 95 H 17 102/62 94 10/31/18 23:00 37.3 C 91 H 20 124/69 94 (1) UTI (urinary tract infection) Hematuria presence: without hematuria Urinary tract infection type: site unspecified Qualified Code(s): N39.0 - Urinary tract infection, site not specified
[2018-11-01] MEDS: cefTRIAXone SODIUM 1,000 MG in DEXTROSE 5% 50 ML IV SCH (12:22)
[2018-11-01] MEDS: TIMOLOL MALEATE 0.25% OP SOLN 5 ML BTL OPL SCH ×2 (12:22→21:10)
--- OUTSIDE RECORDS SUMMARY | 2018-11-01 22:12 | External Medical Summary | Continuity of Care Document ---
:1945 Author Name Berenice Rojas, Provider Address Unavailable Unavailable , Care Team Providers Name Role Phone Talib Goodman M.D., I. Unavailable [email or web address] [email or web address] Unavailable Unavailable Unavailable Unavailable Problems Arthritis (716.90) (M19.90) Chest pain, pleuritic (786.52) (R07.81) Hypertension (401.9) (I10) Sepsis (038.9) (A41.9) Ureteric stone (592.1) (N20.1) Mass of right inguinal region (789.39) (R19.09) Urinary retention (788.20) (R33.9) Nephrolithiasis (592.0) (N20.0) Urinary tract infection (599.0) (N39.0) Neurogenic bladder (596.54) (N31.9) Kidney disease (593.9) (N28.9) Allergies and Adverse Reactions No Known Drug Allergies (Allergy) Medications Cefuroxime Axetil 500 MG Oral Tablet; TAKE 1 TABLET EV MARYANNE 12 HOURS DAILY. SAV Luther Start: 28-Oct-2017 Quantity: 20 Refills: 0 Doxycycline Monohydrate 100 MG Oral Tablet; TAKE 1 TAB LET TWICE DAILY. SAV Luther Start: 01-Jul-2018 Quantity: 6 Refills: 0 Sodium Bicarbonate 650 MG Oral Tablet Refills: 0 Probiotic CAPS Refills: 0 PreserVision/Lutein CAPS Refills: 0 Multi Vitamin Mens Oral Tablet Refills: 0 Vitamin C 250 MG Oral Tablet Refills: 0 Procedures History of history of prior surgery Stat us: Completed History of ileostomy Status: Completed History of prostate resection transurethral Status: Completed Immunizations Immunizations not documented Family History Brother Family history of prostate cancer (V16.42) (Z80.42) Status: Active Grandmother Family history of diabetes mellitus (V18.0) (Z83.3) Status: Active Father Family history of kidney stones (V18.69) (Z84.1) Status: Act valerie Mother Family history of malignant neoplasm of uterus (V16.49) (Z80 .49) Status: Active Sister Family history of malignant neoplasm of uterus (V16.49) (Z80 .49) Status: Active Social History - Smoking Status Never smoker Plan of Treatment Planned Observations Planned Goals not documented Results No Known Results Results not documented Encounters Appointment; Domo Corona II, DO 07-Jul-2018 9:15 Encounter Diagnosis: Problem not documented Appointment; Domo Corona II, DO 07-Apr-2018 9:40 Encounter Diagnosis: Problem not documented Appointment; Domo Corona II, DO 28-Dec-2017 11:40 Encounter Diagnosis: Problem not documented Appointment; Domo Corona II, DO 18-Nov-2017 15:30 Encounter Diagnosis: Problem not documented Appointment; Urology, Room 7 18-Nov-2017 15:20 Encounter Diagnosis: Problem not documented Appointment; Domo Corona II, DO 28-Oct-2017 9:30 Encounter Diagnosis: Problem not documented Appointment; Domo Corona II, DO 12-Oct-2017 12:30 Encounter Diagnosis: Problem not documented Appointment; Urology, Nursing Station 18-Sep-2017 9:20 Encounter Diagnosis: Problem not documented Appointment; Jayme Scott M.D. 15-Sep-2017 9:00 Encounter Diagnosis: Problem not documented Appointment; Cristo Fernandez PA-C 04-Sep-2017 10:45 Encounter Diagnosis: Problem not documented Appointment; Jayme Scott M.D. 25-Aug-2017 10:10 Encounter Diagnosis: Problem not documented
[2018-11-02 07:48] LABS: Albumin Level 2.2 gm/dl (3.4-5.0); BUN Creatinine Ratio 10.5 (10-20); Creatinine Clr Calc Pharmacy 9.6 ml/min; Est GFR (African American) 10.4; Est GFR (Non-African American) 8.9; Phosphorus 3.2 mg/dl (2.5-4.9); Potassium 4.1 mmol/L (3.5-5.1)
[2018-11-02] MEDS: CEROVITE ADV FORMULA TAB PO SCH (08:04)
[2018-11-02] MEDS: LACTOBACILLUS ACIDOPHILUS (FLORANEX) TAB PO SCH ×4 (08:04→20:18)
[2018-11-02] MEDS: HEPARIN SOD 5,000 UNIT/0.5 ML VIAL SQ SCH ×2 (08:04→20:19)
[2018-11-02] MEDS: PANTOprazole 40 MG TAB PO SCH (08:04)
[2018-11-02] MEDS: MULTIVITAMIN TAB PO SCH (08:04)
[2018-11-02] MEDS: TIMOLOL MALEATE 0.25% OP SOLN 5 ML BTL OPL SCH ×2 (08:05→20:20)
--- NOTE | 2018-11-02 08:32 | Family Medicine Progress Note ---
Date of Service November 02, 2018 Assessment & Plan (1) Acute kidney injury superimposed on chronic kidney disease: 73 yo M with PMHx recurrent UTI, neurogenic bladder with self cath 2x daily, CKD stage III, hypomagnesemia, hx of DVT and Factor V Leiden, hx of c diff and s/p large bowel colonic resection with ostomy, who presents with acute kidney injury and UTI. DEBBIE superimposed on CKD Nephrology was consulted following Recs -Baseline creatinine September 2017 2.8 5.7 today -Currently no indication for emergent dialysis -Electrolytes within normal limits -CT scan from [facility] negative for stone -Discontinued IVF -Meds currently properly dosed for kidney function -Renal U/S showed significant changes bilaterally with no evidence of obstruction, non obstructing stone left renal pelvis -Daily BMP -Replete lytes as indicated UTI -Hx numerous UTI most recent giron susceptible -Urine culture demonstrates Klebsiella pneumoniae sensitive to ceftriaxone -continue CTX day 4 -when ready can transition to p.o. Keflex Anemia Hemoglobin was 8.1 on admission dropped 6.5 overnight of 10/29 likely dilutional secondary to fluids administered for DEBBIE -Corresponding hematological labs trended in the same direction hematocrit 24.5-18.8, RBCs 2.82-2.20, WBCs 7.41-5.36 -Transfused 1 unit of PRBC 10/31->hgb 7.8, now 9.3 and stable -likely downtrending 2/2 hemodilution, -Studies demonstrate low MCV, iron low normal, low TIBC, and normal ferritin this is presentation is most consistent with anemia of chronic disease with an element of iron deficiency anemia -Consider supplemental iron -A.m. CBC with noon H&H -Recieved Epo 2000 units on 10/31 -Vitals stable -no signs or symptoms of acute bleed or symptomatic anemia -FOBT neg Neurogenic Bladder -Bladder scan q 3 hours -Straight cath PRN -Consulted uro following recs -Leave Marinelli catheter in for at least a week to allow maximal drainage of the bladder during the treatment phase of the infection -Outpatient follow-up in 2 weeks with reschedule cystoscopy -Irrigate and flush Marinelli catheter History of C. difficile infection - evidence by path report on prior colonic resection Sarcopenia BMI 19 weight loss and muscle wasting decreased albumin -Boost supplementation Electrolyte repletion Patient has had most of his colon and small bowel resected given that, question his ability to absorb electrolytes and water. Avoid p.o. electrolyte repletion FENa:Heart healthy diet, IVF with D5+150 NaHCO3 @ 100 ml/hr, replete lytes as indicated Code Status: Full Code DVT PPX: Teds, SCDS, Heparin subq Dispo: Inpatient (2) Neurogenic bladder: (3) UTI (urinary tract infection): Supervising Physician Co-Signing Physician Notes I personally examined the patient and verified all forbes points of history and exam, discussed case, and agree with decision making with Dr Alcala. back hurts some - by shoulder blade. no sob no nausea no shaky. vitals noted nad breathing unlabored no pallor or icterus. Clarification of yesterday it was right-sided rib pain. Today shows right-sided paraspinal hypertonicity that is tender with decreased range of motion, direct myofascial and ligamentous articular strain are done with improvement in pain and tissue te xture. Patient tolerated well. ARF - ?ATN from volume depletion from GI losses/short gut? ?progression of CKD to ESRD? --Unfortunately the leveling off of his creatinine suggests that this may be his new baseline. Discussed dialysis. Nephrology input greatly appreciated. Fortunately there is no urgent indications for dialysis. Back painmusculoskeletal Somatic dysfunction thoracic region OMT as above chest pain - probably rib related, actually appears to be better today DVT proph - heparin SQ Subjective Patient sitting in his chair this morning meeting with nephrology when I arrived. I was present for the meeting with nephrology and discussion was regarding progression to hemodialysis. His kidney function did not improve overnight and creatinine actually went up from 5.5-5.7. Patient will be talking with his daughter and the rest of his family regarding transition to dialysis. The patient is concerned with quality of life with regards to progressive dialysis. Ostomy reversed overall the patient feels subjectively better symptoms continue to resolve. Still experiencing some chest pain that is reproducible with palpation. Patient is tolerating his diet, sleeping well, producing adequate urine, and ostomy output is adequate as well. If patient foregoes hemodialysis a palliative consult would be appropriate. All questions answered no concerns at present. Patient denies fevers, chills, nausea, vomiting, diarrhea, constipation, muscle aches or pains, or other signs or symptoms of acute infectious process Physical Exam Physical Exam: General: awake, alert, no apparent distress, + fatigued, + thin Head: Normocephalic, atraumatic ENT: EOMI, Chest: Clear to auscultation, on room air, no adventitious breath sounds Cardiac: Regular rate and rhythm, no murmur, no JVD, normal peripheral pulses, good capillary refill Abdominal: NABS x 4 quadrants, soft, nondistended, + Ostomy in RLQ with light brown + tender to palpation in the LUQ close to rib cage, no rebound or guarding Extremities: Moves all extremities, calves nontender to palpation, no peripheral edema Psych: Normal mood, slightly flat affect Neuro: AAO x4, reports sensorimotor functions are intact Results & Data Vital Signs (Past 12 Hours) Vital Signs Temp Pulse Resp BP Pulse Ox 11/02/18 07:28 37.2 C 90 16 99/63 L 91 11/01/18 23:52 37.4 C 88 18 100/63 90 Laboratory Results 11/02/18 06:57 11/02/18 06:54 11/02/18 11/02/18 Range/Units 06:57 06:54 WBC 8.73 (4.8-10.8) K/uL RBC 3.18 L (4.7-6.1) M/uL Hgb 9.3 L (14.0-18.0) g/dL Hct 27.7 L (42-52) % MCV 87.1 (80-100) fL MCH 29.2 (25-34) pg MCHC 33.6 (32-36) g/dL RDW Std Deviation 48.1 H (36.4-46.3) fL RDW Coeff of Rubi 15.1 H (11.5-14.5) % Plt Count 188 (130-400) K/uL MPV 9.3 (7.4-10.4) fL Immature Gran % (Auto) 1.0 % Neut % (Auto) 79.0 % Lymph % (Auto) 5.3 % [place] % (Auto) 14.3 % Eos % (Auto) 0.3 % Baso % (Auto) 0.1 % Immature Gran # (Auto) 0.09 H (0.00-0.02) K/uL Neut # (Auto) 6.89 H (1.4-6.5) K/uL Lymph # (Auto) 0.46 L (1.2-3.4) K/uL [place] # (Auto) 1.25 H (0.11-0.59) K/uL Eos # (Auto) 0.03 (0-0.5) K/uL Baso # (Auto) 0.01 (0-0.2) K/uL Sodium 136 (136-145) mmol/L Potassium 4.1 (3.5-5.1) mmol/L Chloride 105 (98-107) mmol/L Carbon Dioxide 26 (21-32) mmol/L Anion Gap 5.0 (3-11) BUN 60 H (7-18) mg/dl Creatinine 5.73 H* (0.6-1.4) mg/dl Est Cr Clr Drug Dosing 9.6 ml/min Est GFR ( Amer) 10.4 Est GFR (Non-Af Amer) 8.9 BUN/Creatinine Ratio 10.5 (10-20) Glucose 119 H (70-99) mg/dl Calcium 7.0 L (8.5-10.1) mg/dl Phosphorus 3.2 (2.5-4.9) mg/dl Albumin 2.2 L (3.4-5.0) gm/dl Medications Administered Current Inpatient Medications Acetaminophen (Tylenol) 650 mg PO Q4H PRN PRN Reason: Moderate Pain Stop: 11/28/18 15:43 Last Admin: 10/31/18 07:53 Dose: 650 mg Documented by: Artificial Tears (Artificial Tears) 1 drops OPB QAM PRN PRN Reason: DRY EYES Stop: 11/28/18 16:59 Heparin Sodium (Porcine) (Heparin Sodium (Porcine)) 5,000 units SQ Q12 MARIA DEL CARMEN Stop: 11/28/18 20:59 Last Admin: 11/02/18 08:04 Dose: 5,000 units Documented by: Ceftriaxone Sodium 1,000 mg/ (Dextrose) 50 mls @ 100 mls/hr IV DAILY@1200 MARIA DEL CARMEN; Protocol Stop: 11/08/18 11:59 Last Infusion: 11/01/18 12:52 Dose: Infused Documented by: Sodium Chloride (Nss) 250 mls @ 15 mls/hr IV .[id number] PRN PRN Reason: For Transfusion Stop: 11/29/18 08:32 Sodium Chloride (Nss) 250 mls @ 15 mls/hr IV .[id number] PRN PRN Reason: For Transfusion Stop: 11/29/18 09:42 Sodium Chloride (Nss) 250 mls @ 15 mls/hr IV .[id number] PRN PRN Reason: For Transfusion Stop: 11/30/18 11:25 Sodium Chloride (Nss) 250 mls @ 15 mls/hr IV .[id number] PRN PRN Reason: For Transfusion Stop: 11/30/18 11:48 Sodium Chloride (Nss 1000ml) 1,000 mls @ 80 mls/hr IV .[id number] MARIA DEL CARMEN Stop: 12/01/18 08:44 Last Admin: 11/02/18 09:54 Dose: 80 mls/hr Documented by: Lactobacillus Acidophilus (Floranex) 4 tab PO QIDM [facility] Stop: 11/28/18 17:59 Last Admin: 11/02/18 08:04 Dose: 4 tab Documented by: Morphine Sulfate (Morphine Sulfate) 1 mg IV Q2H PRN PRN Reason: Pain Stop: 11/12/18 17:16 Last Admin: 10/31/18 23:45 Dose: 1 mg Documented by: Multivitamins (Multivitamin Tab) 1 tab PO QAM [facility] Stop: 11/29/18 08:59 Last Admin: 11/02/18 08:04 Dose: 1 tab Documented by: Multivitamins/Minerals (Multivitamin W/ Minerals Tab) 1 tab PO QAM [facility] Stop: 11/29/18 08:59 Last Admin: 11/02/18 08:04 Dose: 1 tab Documented by: Ondansetron HCl (Zofran) 4 mg IV Q4H PRN PRN Reason: Nausea And Vomiting Stop: 11/28/18 15:43 Last Admin: 10/31/18 07:53 Dose: 4 mg Documented by: Pantoprazole Sodium (Protonix) 40 mg PO QAM [facility] Stop: 11/29/18 08:59 Last Admin: 11/02/18 08:04 Dose: 40 mg Documented by: Timolol Maleate (Timoptic 0.25% Oph) 1 drops OPL BID [facility] Stop: 11/28/18 20:59 Last Admin: 11/02/18 08:05 Dose: 1 drops Documented by: Resident Activity Tracking Resident Involvement: Resident Care Provided Care Provided: Adult Hospital Medicine (1) UTI (urinary tract infection) Hematuria presence: without hematuria Urinary tract infection type: site unspecified Qualified Code(s): N39.0 - Urinary tract infection, site not specified
[2018-11-02 08:58] LABS: Basophils # (auto) 0.01 K/uL (0-0.2); Basophils % (auto) 0.1 %; Eosinophils # (auto) 0.03 K/uL (0-0.5); Eosinophils % (auto) 0.3 %; Hematocrit (blood only) 27.7 % (42-52); Hemoglobin 9.3 g/dL (14.0-18.0); Immature Granulocytes # (auto) 0.09 K/uL (0.00-0.02); Lymphocytes # (auto) 0.46 K/uL (1.2-3.4); Lymphocytes % (auto) 5.3 %; Mean Corpuscular Hgb Conc 33.6 g/dL (32-36); Mean Corpuscular Volume 87.1 fL (80-100); Mean Platelet Volume 9.3 fL (7.4-10.4); Monocytes # (auto) 1.25 K/uL (0.11-0.59); Monocytes % (auto) 14.3 %; Neutrophils # (auto) 6.89 K/uL (1.4-6.5); Platelet Count 188 K/uL (130-400); RDW Coefficient of Variation 15.1 % (11.5-14.5); RDW Standard Deviation 48.1 fL (36.4-46.3); Red Blood Count 3.18 M/uL (4.7-6.1); White Blood Count 8.73 K/uL (4.8-10.8)
[2018-11-02] MEDS: SODIUM CHLORIDE 0.9% 1000ML 1,000 ML IV SCH (09:54)
--- NOTE | 2018-11-02 10:38 | Nephrology Progress Note ---
Date of Service November 02, 2018 Assessment & Plan (1) Acute kidney injury superimposed on chronic kidney disease: -- Non-oliguric acute kidney injury with underlying most likely advanced CKD ( creatinine was 2.8 in September 2017 ). Renal US: significant chronic changes bilaterally, no evidence of obstruction. Volume status acceptable. Electrolytes are acceptable -- No emergent role for dialysis --renal function staying relatively stable with creatinine around 5.5-5.6 and significantly low GFR however electrolyte remain acceptable. continue to monitor renal function --okay to discontinue IV fluid as patient seem to have adequate p.o. intake --discussed in detail about renal replacement therapy, encourage patient to make decision as there is high likelihood that he will need dialysis in near future -- Document I/O's -- Repeat metabolic profile tomorrow AM -- Medications are currently appropriately dosed for kidney function Will follow (2) Chronic kidney disease: -- Baseline creatinine in September 2017 was 2.8 mg/dL -- Multiple episodes of DEBBIE (3) Anemia: -- 1 u PRBC transfusion support provided yesterday with adequate response -- Iron profile acceptable -- Epogen [id number] units provided on 10/31/18 (4) UTI (urinary tract infection): -- Empiric ceftriaxone started -- Culture +klebsiella (5) Nephrolithiasis: -- Small non-obstructing stone noted in left renal pelvis (6) Neurogenic bladder: -- Urology consult appreciated -- Marinelli to gravity Subjective Trevon was seen and examined in his room this morning. Overall he is feeling well, appetite much better. Denies shortness of breath or chest pain. Blood pressure remained low but asymptomatic. Continues to make decent amount of urine, net even. Physical Exam Constitutional: WD/WN, vitals as above + ill appearing Respiratory: normal respiratory effort, lungs clear to auscultation Cardiovascular: RRR, no murmur, no edema Neurologic: moves all extremities and awake Psychiatric: A+Ox3, euthymic affect Results & Data Vital Signs (Past 12 Hours) Vital Signs Temp Pulse Resp BP Pulse Ox 11/02/18 07:28 37.2 C 90 16 99/63 L 91 11/01/18 23:52 37.4 C 88 18 100/63 90 (1) UTI (urinary tract infection) Hematuria presence: without hematuria Urinary tract infection type: site unspecified Qualified Code(s): N39.0 - Urinary tract infection, site not specified
[2018-11-02] MEDS: cefTRIAXone SODIUM 1,000 MG in DEXTROSE 5% 50 ML IV SCH (11:50)
[2018-11-03 06:47] LABS: Basophils # (auto) 0.02 K/uL (0-0.2); Basophils % (auto) 0.3 %; Eosinophils # (auto) 0.09 K/uL (0-0.5); Eosinophils % (auto) 1.3 %; Hematocrit (blood only) 26.9 % (42-52); Hemoglobin 8.9 g/dL (14.0-18.0); Immature Granulocytes # (auto) 0.03 K/uL (0.00-0.02); Immature Granulocytes % (auto) 0.4 %; Lymphocytes # (auto) 0.46 K/uL (1.2-3.4); Lymphocytes % (auto) 6.6 %; Mean Corpuscular Hgb Conc 33.1 g/dL (32-36); Mean Corpuscular Volume 87.1 fL (80-100); Monocytes # (auto) 1.09 K/uL (0.11-0.59); Monocytes % (auto) 15.7 %; Neutrophils # (auto) 5.24 K/uL (1.4-6.5); Neutrophils % (auto) 75.7 %; Platelet Count 200 K/uL (130-400); RDW Standard Deviation 47.8 fL (36.4-46.3); Red Blood Count 3.09 M/uL (4.7-6.1); White Blood Count 6.93 K/uL (4.8-10.8)
[2018-11-03 07:27] LABS: Albumin Level 2.2 gm/dl (3.4-5.0); BUN Creatinine Ratio 11.1 (10-20); Calcium 7.8 mg/dl (8.5-10.1); Est GFR (African American) 10.9; Est GFR (Non-African American) 9.4; Phosphorus 3.4 mg/dl (2.5-4.9); Potassium 4.5 mmol/L (3.5-5.1)
[2018-11-03] MEDS: LACTOBACILLUS ACIDOPHILUS (FLORANEX) TAB PO SCH ×2 (08:16→12:56)
[2018-11-03] MEDS: PANTOprazole 40 MG TAB PO SCH (08:16)
[2018-11-03] MEDS: CEROVITE ADV FORMULA TAB PO SCH (08:16)
[2018-11-03] MEDS: MULTIVITAMIN TAB PO SCH (08:16)
[2018-11-03] MEDS: TIMOLOL MALEATE 0.25% OP SOLN 5 ML BTL OPL SCH (08:17)
[2018-11-03] MEDS: HEPARIN SOD 5,000 UNIT/0.5 ML VIAL SQ SCH (09:36)
--- NOTE | 2018-11-03 10:13 | Nephrology Progress Note ---
Date of Service November 03, 2018 Assessment & Plan (1) Acute kidney injury superimposed on chronic kidney disease: -- Non-oliguric acute kidney injury with underlying most likely advanced CKD ( creatinine was 2.8 in September 2017 ). Renal US: significant chronic changes bilaterally, no evidence of obstruction. Volume status acceptable. Electrolytes are acceptable --renal function staying relatively stable with creatinine around 5.5-5.6 and significantly low GFR however electrolyte remain acceptable. High likelihood that patient has end-stage renal disease and renal function is not going to improve much. Discussed in detail about renal replacement therapy options. Dialysis nurses provided renal replacement therapy education yesterday. After all the information and detailed discussion, considering his underlying many significant comorbidities patient decided he will not consider renal replacement therapy in future. --monitor renal function daily while in hospital however can be discharge the when clinically stable. --offered outpatient Nephrology follow-up however he would prefer to follow with his primary care physician. --discussed about hospice care as the he refused renal replacement therapy and seem to have end-stage renal disease, patient is agreeable to that -- Medications are currently appropriately dosed for kidney function Will sign off, pls contact if any further assistance needed. (2) Chronic kidney disease: -- Baseline creatinine in September 2017 was 2.8 mg/dL -- Multiple episodes of DEBBIE (3) Anemia: -- 1 u PRBC transfusion support provided yesterday with adequate response -- Iron profile acceptable -- Epogen 27049 units provided on 10/31/18 (4) UTI (urinary tract infection): -- Empiric ceftriaxone started -- Culture +klebsiella (5) Nephrolithiasis: -- Small non-obstructing stone noted in left renal pelvis (6) Neurogenic bladder: -- Urology consult appreciated -- Marinelli to gravity Subjective . Trevon was seen and examined in his room this morning. Overall he is feeling well, appetite much better. Denies shortness of breath or chest pain. Blood pressure remained low but asymptomatic. Continues to make decent amount of urine, net even. Renal function staying relatively stable without any further changes. Physical Exam Constitutional: WD/WN, vitals as above + ill appearing Respiratory: normal respiratory effort, lungs clear to auscultation Cardiovascular: RRR, no murmur, no edema Neurologic: moves all extremities and awake Psychiatric: A+Ox3, euthymic affect Results & Data Vital Signs (Past 12 Hours) Vital Signs Temp Pulse Resp BP Pulse Ox 11/03/18 07:28 37.0 C 80 16 106/64 93 11/03/18 00:10 37.1 C 82 18 111/68 92 (1) UTI (urinary tract infection) Hematuria presence: without hematuria Urinary tract infection type: site unspecified Qualified Code(s): N39.0 - Urinary tract infection, site not specified
--- NOTE | 2018-11-03 12:49 | Family Medicine Progress Note ---
Date of Service November 03, 2018 Assessment & Plan (1) Acute kidney injury superimposed on chronic kidney disease: 73 yo M with PMHx recurrent UTI, neurogenic bladder with self cath 2x daily, CKD stage III, hypomagnesemia, hx of DVT and Factor V Leiden, hx of c diff and s/p large bowel colonic resection with ostomy, who presents with acute kidney injury and UTI. DEBBIE superimposed on CKD Nephrology was consulted following Recs -Baseline creatinine September 2017 2.8 5.7 today -Currently no indication for emergent dialysis -Electrolytes within normal limits -CT scan from [facility] negative for stone -Discontinued IVF -Meds currently properly dosed for kidney function -Renal U/S showed significant changes bilaterally with no evidence of obstruction, non obstructing stone left renal pelvis -Daily BMP -Replete lytes as indicated UTI -Hx numerous UTI most recent giron susceptible -Urine culture demonstrates Klebsiella pneumoniae sensitive to ceftriaxone -continue CTX day 4 -when ready can transition to p.o. Keflex Anemia Hemoglobin was 8.1 on admission dropped 6.5 overnight of 10/29 likely dilutional secondary to fluids administered for DEBBIE -Corresponding hematological labs trended in the same direction hematocrit 24.5-18.8, RBCs 2.82-2.20, WBCs 7.41-5.36 -Transfused 1 unit of PRBC 10/31->hgb 7.8, now 9.3 and stable -likely downtrending 2/2 hemodilution, -Studies demonstrate low MCV, iron low normal, low TIBC, and normal ferritin this is presentation is most consistent with anemia of chronic disease with an element of iron deficiency anemia -Consider supplemental iron -A.m. CBC with noon H&H -Recieved Epo 2000 units on 10/31 -Vitals stable -no signs or symptoms of acute bleed or symptomatic anemia -FOBT neg Neurogenic Bladder -Bladder scan q 3 hours -Straight cath PRN -Consulted uro following recs -Leave Marinelli catheter in for at least a week to allow maximal drainage of the bladder during the treatment phase of the infection -Outpatient follow-up in 2 weeks with reschedule cystoscopy -Irrigate and flush Marinelli catheter History of C. difficile infection - evidence by path report on prior colonic resection Sarcopenia BMI 19 weight loss and muscle wasting decreased albumin -Boost supplementation Electrolyte repletion Patient has had most of his colon and small bowel resected given that, question his ability to absorb electrolytes and water. Avoid p.o. electrolyte repletion FENa:Heart healthy diet, IVF with D5+150 NaHCO3 @ 100 ml/hr, replete lytes as indicated Code Status: Full Code DVT PPX: Teds, SCDS, Heparin subq Dispo: Inpatient (2) Neurogenic bladder: (3) UTI (urinary tract infection): Results & Data Vital Signs (Past 12 Hours) Vital Signs Temp Pulse Resp BP Pulse Ox 11/03/18 07:28 37.0 C 80 16 106/64 93 (1) UTI (urinary tract infection) Hematuria presence: without hematuria Urinary tract infection type: site unspecified Qualified Code(s): N39.0 - Urinary tract infection, site not specified
[2018-11-03] MEDS: cefTRIAXone SODIUM 1,000 MG in DEXTROSE 5% 50 ML IV SCH (12:52)
--- NOTE | 2018-11-03 19:21 | Discharge Summary ---
Date of Service November 03, 2018 Admission HPI Per Admitting Provider This is a 73 yo M with PMHx recurrent UTI, neurogenic bladder with self cath 2x daily, CKD stage III, hypomagnesemia, hx of DVT and Factor V Leiden, hx of c diff and s/p large bowel colonic resection with ostomy, who presents with acute kidney injury and UTI. The patient's is present with him at bedside. The patient notes that he started to feel worse about 1 week ago, noticed that he has been increasingly fatigued with basic ADLs. He admits for the past 3 days he has had more weakness, and noticed very cloudy, purulent mucoid-like discharge during self caths, and reports having a left-sided flank pain which is intermittent, as well as foul-smelling urine. He denies any hematuria. Last evening patient's pain was so bad that he presented to [facility]. They are a CT of the abdomen/pelvis was obtained without any acute findings. It was noted that his creatinine was elevated at 7.7, and BUN= 83. He was administered IV pain medication there and prescribed an antibiotic at the time of discharge, however did not receive an IV antibiotic in their ER. By the time the patient left the ER pharmacy was closed and he has not been able to pick remover the Bactrim prescription. The patient called urology office, as he follows with Dr. Corona as an outpatient, this morning for follow up and he was referred to our ER. Patient is still experiencing L flank pain without any movement which is waxing and waning. His urine is unchanged. e notes he has had multiple recurrent UTIs in the past associated with kidney stones. Patient's diet has recently been diminished although he is drinking fluids. Patient notes that his ostomy outs have also been more liquid compared to normal in the past 3 days, and thinks that there is a foul smell associated with this as well. Pt denies any fevers, chills or sweats. Cr. 7.05, BUN =80, WBC = 7.41. Admission Exam Per Admitting Provider General: awake, alert, no apparent distress, + fatigued, + thin Head: Normocephalic, atraumatic ENT: PERRL, EOMI, no pharyngeal exudate, mucous membranes moist Chest: Clear to auscultation, on room air, no adventitious breath sounds Cardiac: Regular rate and rhythm, no murmur, no JVD, normal peripheral pulses, good capillary refill Abdominal: NABS x 4 quadrants, soft, nondistended, + Ostomy in RLQ with light brown loose outs, + tender to palpation in the LUQ close to rib cage, no rebound or guarding Extremities: Normal inspection, no peripheral edema or erythema, calfs nontender to palpation Psych: Normal mood, slightly flat affect Neuro: AAO x 3, strength intact bilaterally and related 5/5, no motor deficits, speech is clear, no peripheral sensory deficits Principal Diagnosis Acute on chronic renal failure Discharge Exam General: awake, alert, no apparent distress, + fatigued, + thin Head: Normocephalic, atraumatic ENT: EOMI, Chest: Clear to auscultation, on room air, no adventitious breath sounds Cardiac: Regular rate and rhythm, no murmur, no JVD, normal peripheral pulses, good capillary refill Abdominal: NABS x 4 quadrants, soft, nondistended, + Ostomy in RLQ with light brown + tender to palpation in the LUQ close to rib cage, no rebound or guarding Extremities: Moves all extremities, calves nontender to palpation, no peripheral edema Psych: Normal mood, slightly flat affect Neuro: AAO x4, reports sensorimotor functions are intact Discharge Data Allergies Allergy/AdvReac Type Severity Reaction Status Date / Time adhesive AdvReac Mild SKIN Verified 10/29/18 12:29 IRRITATION - SEE COMMENTS BELOW Consultations 10/29/18 15:17 ED Decision to Admit Stat 10/29/18 15:44 Consult Nephrology Routine 10/29/18 15:45 Consult Case Management - Discharge Planning Routine 10/29/18 17:17 Consult Urology Routine Ordered Studies 10/29/18 17:17 US renal/blad retro comp Stat Hospital Course (1) Acute kidney injury superimposed on chronic kidney disease: 73 yo M with PMHx recurrent UTI, neurogenic bladder with self cath 2x daily, CKD stage III, hypomagnesemia, hx of DVT and Factor V Leiden, hx of c diff and s/p large bowel colonic resection with ostomy, who presents with acute kidney injury and UTI. 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 nephrology was consulted and provided management for the patient, baseline creatinine in September 2017 was 2.8, initially on admission it was 7 dropping down to 5.5 on discharge. Throughout the hospitalization, his electrolytes were repleted as indicated. Initially he was maintained on IV fluids per nephrology's recommendation, these were DC'd once adequate hydration with status was achieved. His meds were adjusted to be renally dosed. Nephrology spoke with the patient regarding indications for dialysis and what this would mean for him. We had a lengthy discussion regarding goals of care, CODE STATUS, palliation, the patient is a devout Jain and sees is the next step. He is elected to forego hemodialysis in favor of quality of life. We will leave further discussions to his primary care provider. -had detailed discussions with pt about end of life decisions including helping them think through measures such as how he would want ESRD type outcomes such as uremia or pulmonary edema. they did not come to concrete conclusions at this time but i walked them through possible treatment scenarios ranging from aggressive to purely comfort -anticipate hospice referral as his condition deteriorates -pt/ definitely/strongly prefer comfort/palliative care be headed up by PCP UTI UA on admission was dirty, urine culture demonstrated Klebsiella pneumo sensitive to ceftriaxone he was placed on ceftriaxone and completed a 5-day course. Anemia On admission patient's hemoglobin was 8.1 after receiving significant fluids dropped to 6.5. This was likely an example of hemodilution corresponding hematological labs dropped as well hematocrit dropped from 24.5-18.8 RBCs went from 2.82 to 2.20, to be BCs went from 7.41-5.36. Even this patient's profound hemodilution we transfuse 1 unit of packed red blood cells on 10/31 pain is hemoglobin 7.8, repeat H&H demonstrated a drop in hemoglobin again likely secondary to hemodilution he received another unit of packed red blood cells. His iron profile demonstrated low MCV, low normal iron, low TIBC and normal ferritin this presentation is most consistent with anemia of chronic disease with an element of iron deficiency anemia. Would consider supplemental iron. Will defer to PCP for further management. He received a dose of EPO 2000 units on 10/31 Neurogenic Bladder Urology was consulted for the patient's neurogenic bladder we will follow the recommendations. They suggested we leave the Marinelli catheter in for at least a week to allow maximal drainage of the bladder during the treatment phase of the infection, outpatient follow-up in 2 weeks with reschedule cystoscopy, Marinelli catheter was regularly irrigated and flushed. History of C. difficile infection - evidence by path report on prior colonic resection Sarcopenia BMI 19 weight loss and muscle wasting decreased albumin -Boost supplementation Electrolyte repletion Patient has had most of his colon and small bowel resected given that, question his ability to absorb electrolytes and water. Avoid p.o. electrolyte repletion FENa:Heart healthy diet Code Status: Full Code DVT PPX: Teds, SCDS, Heparin subq Dispo: Inpatient (2) Neurogenic bladder: (3) UTI (urinary tract infection): Total Time Total Time Spent Total Time Spent (In Minutes): >30min Discharge Plan Discharge Items Patient Disposition: Home - Self-Care Reason For Visit: DEBBIE ON CKD, UTI Discharge Diagnosis: end stage renal disease Discharge Goals: Diagnostic testing and Learn about illness Activity: Resume your previous activity Non-emergency contact: Primary Care Provider Call non-emergency contact if: you have any medication questions and your symptoms worsen Follow-up/Referrals: José Luis Chen MD [Primary Care Provider] - Diet: Regular Addtl Provider Instructions: end stage kidney disease -as we discussed, without dialysis, the main problems we're looking at managing will be symptom control for fluid backing up into your lungs (which would show up as a progressive shortness of breath, worse when you lay down) or "uremia" (a syndrome from buildup of toxins normally cleared by the kidney that can manifest as anything from a slow progressive fatigue and malaise to significant nausea and shakiness) -the goals will be to keep you comfortable and happy for as long as possible -Dr Chen will take over as the "quarterback" for this care -- when you reach a point of needing more in-home support, a hospice agency can be enlisted to be Dr Chen's "eyes and ears" as well as his "striking arm" as far as being able to intervene with medications Prescriptions: Continued ascorbic acid (vitamin C) [Vitamin C] 1,000 mg Tablet PO BID RF: 0 acetaminophen [Tylenol Extra Strength] 500 mg Tablet 500 mg PO Q6H PRN (Reason: Pain) RF: 0 timolol maleate 0.25 % drops 1 drp OPL BID RF: 0 pantoprazole 40 mg tablet,delayed release (DR/EC) 40 mg PO QAM RF: 0 Eye Drop Tears 1-0.2-0.2 % Drops 1 drp OPB QAM RF: 0 multivitamin Tablet,Chewable 1 tab PO BID RF: 0 Ocuvite with Lutein 1,000 unit-200 mg-60 unit-2 mg Tablet 1 tab PO QAM RF: 0 Stand-Alone Forms: [facility] Discharge Orders: Discharge Order (Routine); Ordered 11/03/18 Ordered By: Isacc Osuna Admission Data Admit Date/Time: 10/29/18 15:44 Attending Provider: Isacc Osuna Admit Provider: Angelique Bonilla Primary Care Provider: José Luis Chen Other Providers: Nirmal Macias ; Talib Goodman I. ; Angelique Bonilla ; Rj Ricks Service: Medical Other Interventions: Discharge Summary Assessment (RN) Last Done: 11/03/18 14:18 DC Date/Time DO NOT enter until pt leaves facility: 11/03/18 15:57 Supervising Physician Co-Signing Physician Notes I personally examined the patient and verified all forbes points of history and exam, discussed case, and agree with decision making with Dr Alcala. does not want dialysis. extensive d/w pt and on end of life care/goals/probabilities as far as problems with deterioration and possible strategies for helping sx. vitals noted nad breathing unlabored no pallor or icterus ESRD - for comfort/palliative care. PCP f/u. hospice referral once necessary for comfort care. Resident Activity Tracking Resident Involvement: Resident Care Provided Care Provided: Adult Hospital Medicine
== END 2018-11-03 15:57 | disposition home or self-care (01) | DRG 683 ==
LOC: ED 11:21 → 4E 15:44 → SUATTDRO 15:44 → 4E 16:30